=== PATIENT | female | born 1930 | race Caucasian/White ===

== ENCOUNTER 2016-06-25 21:58 | Inpatient (IN) ==
[2016-06-25] MEDS ORDERED: 0.9 % Sodium Chloride 1,000 ML IVC ONE (22:28)
[2016-06-25] MEDS ORDERED: *HR* Metoprolol 5 MG/5 ML VIAL IVP ONE (22:50)
[2016-06-25 23:05] LABS: Basophils % 0.1 %; Eosinophils # 0.3 K/mcL (0.0-0.6); Hematocrit 37.6 % (35.3-44.9); Hemoglobin 12.2 g/dL (11.5-15.4); Immature Granulocytes % 0.4 % (0-4); Lymphocytes # 3.1 K/mcL (0.6-4.6); Lymphocytes % 24.1 %; Mean Corpuscular HGB Conc 32.4 g/dL (31.6-35.5); Mean Corpuscular Hemoglobin 26.6 pg (28.0-33.3); Mean Corpuscular Volume 82.1 fL (83.0-100.0); Monocytes # 1.4 K/mcL (0.0-1.3); Monocytes % 11.1 %; Platelet Count 180 K/mcL (140-400); Red Blood Count 4.58 M/mcL (3.82-4.97); Segmented Neutrophils % 62.3 %
[2016-06-25 23:10] LABS: INR 3.8; Ionized Calcium 1.12 mmol/L (1.15-1.35); Prothrombin Time 42.8 Seconds (9.4-12.1)
[2016-06-26 00:18] LABS: Alanine Aminotransferase 34 Units/L (0-55); Alkaline Phosphatase 80 Units/L (38-126); Aspartate Amino Transferase 25 Units/L (5-34); BUN/Creatinine Ratio 42 (6-26); Blood Urea Nitrogen 33 mg/dL (7-20); Carbon Dioxide 24 mEq/L (19-29); Chloride 100 mEq/L (98-109); Glucose 216 mg/dL (70-99); Magnesium 2.1 mg/dL (1.6-2.6); Osmolality,Calculated 292 (280-300); Potassium 4.6 mEq/L (3.5-4.5); Sodium 134 mEq/L (136-145); eGFR For African Americans > 60 (> 60); eGFR For Non-African Americans > 60 (> 60)
--- NOTE | 2016-06-26 00:31 | Emergency Department Note ---
Disposition Clinical Impression: Atrial fibrillation with RVR, Weakness Disposition: Admitted As Inpatient Referrals: NO,PCP [Non-Partnered Physician] - Forms: ED Satisfaction Letter Arrhythmia/Palpitations HPI - General Chief Complaint: ED Weakness Stated Complaint: weakness, fall Time Seen by Provider: 06/25/16 22:04 Source: EMS Limitations: no limitations Nursing Notes Reviewed: Yes Vital Signs Reviewed: Yes - History of Present Illness HPI Narrative: Is a 85-year-old female states the last 2-3 days she has had increasing tachycardia palpitations. She had one episode of fall she also complained of a mild nonproductive cough. She did have one episode of diarrhea also today. She denies any chest pain and states she was recently discharged from [facility] for the same issue Pt Subjective Complaint: rapid heart beat, palpitations Duration: constant Severity: moderate, similar to previous episodes Context: occurred during rest Arrhythmia History: atrial fibrillation Associated symptoms: Denies: chest pain, syncope, nausea, vomiting, anxiety, diaphoresis Treatments prior to arrival: beta-kenia - Related Data Allergies Allergy/AdvReac Type Severity Reaction Status Date / Time aspirin Allergy See Verified 06/25/16 23:00 Comments Penicillins Allergy See Verified 06/25/16 23:00 Comments ivp dye Allergy See Uncoded 06/25/16 23:00 Comments All systems ED: reviewed and negative except as stated. Constitutional: Denies: fever, chills, weakness Respiratory: Reports: cough Past Medical History - Past Medical History Source: patient, old records reviewed, nursing notes reviewed Medical history: Reports: atrial fibrillation - Social History Smoking Status: Never smoker Smokeless Tobacco Status: No Alcohol use: Reports: none Drug use: Reports: none Physical Exam - General Limitations: no limitations General appearance: alert, in no apparent distress - Head Head exam: atraumatic, normocephalic, normal inspection - Eye Eye exam: Present: normal appearance, PERRL, EOMI - Expanded Eye Exam Pupils: Left: reactive - ENT ENT exam: normal exam, normal oropharynx, mucous membranes moist - Expanded ENT Exam External ear exam: Present: normal external inspection Mouth exam: Present: normal external inspection Teeth exam: Present: normal inspection Throat exam: Present: normal inspection - Neck Neck exam: Present: normal inspection, full ROM, trachea midline - Chest Chest inspection: Present: normal inspection, symmetric chest wall rise - Respiratory Respiratory exam: Present: normal lung sounds bilaterally - Cardiovascular Cardiovascular exam: Present: tachycardia - Abdominal Exam Abdominal exam: Present: soft, Non-Tender. Absent: tenderness, distention, guarding, rebound, rigidity - Extremities Exam Extremities exam: Present: normal inspection, full ROM. Absent: tenderness, pedal edema - Expanded Upper Extremity Exam Shoulder exam: Present: normal inspection, full ROM Arm exam: Present: normal inspection, full ROM Elbow exam: Present: normal inspection, full ROM Forearm/Wrist exam: Present: normal inspection, full ROM Hand exam: Present: normal inspection, full ROM Vascular exam: Normal: capillary refill, radial pulse - Expanded Lower Extremity Exam Hip/Pelvis exam: Present: normal inspection, full ROM Upper leg exam: Present: normal inspection, full ROM Knee exam: Present: normal inspection, full ROM Lower leg exam: Present: normal inspection, full ROM Ankle exam: Present: normal inspection, full ROM Foot/toe exam: Present: normal inspection, full ROM Neurovascular/Tendon exam: Absent: motor deficit, sensory deficit, tendon deficit - Back Exam Back exam: Present: normal inspection, full ROM. Absent: tenderness - Neurological Exam Neurological exam: Present: alert, oriented X3 - Expanded Neurological Exam Patient oriented to: Present: person, place, time Coma Scale Eye Opening: Spontaneous Coma Scale Motor Response: Obeys Commands Coma Scale Verbal Response: Oriented Coma Scale Total: 15 - Psychiatric Psychiatric exam: Present: normal affect, normal mood - Skin Skin exam: Present: warm, dry, intact, normal color Course Vital Signs Temperature 97.4 F L 06/25/16 22:01 Pulse Rate 144 06/25/16 22:01 Respiratory Rate 18 06/25/16 22:01 Blood Pressure 93/75 06/25/16 22:01 O2 Sat by Pulse Oximetry 97 06/25/16 22:01 Temperature 97.4 F L 06/25/16 22:01 Pulse Rate 137 06/26/16 00:16 Respiratory Rate 18 06/26/16 00:16 Blood Pressure 101/84 06/26/16 00:16 O2 Sat by Pulse Oximetry 98 06/26/16 00:16 Oxygen Delivery Oxygen Delivery Room Air Arrhythmia/Palpitations - Differential Diagnosis Differential Diagnosis: Likely: palpitations, sinus tachycardia, artial arrhythmia, ventricular premature beats, supraventricular tachycardia, metabolic /electrolyte disturbance, undetermined arrhythmia - Medical Records Medical records reviewed: Yes I reviewed the patient's medical records. - Lab Data Lab results reviewed: Yes I reviewed the patient's lab results. Result diagrams: 06/25/16 22:57 06/25/16 22:57 Lab Results 06/25/16 06/25/16 06/25/16 Range/Units 22:57 22:57 22:57 WBC 12.8 H (4.3-11.1) K/mcL RBC 4.58 (3.82-4.97) M/mcL Hgb 12.2 (11.5-15.4) g/dL Hct 37.6 (35.3-44.9) % MCV 82.1 L (83.0-100.0) fL MCH 26.6 L (28.0-33.3) pg MCHC 32.4 (31.6-35.5) g/dL RDW 19.0 H (11.5-14.5) % Plt Count 180 (140-400) K/mcL MPV 9.0 L (9.4-12.4) fL Immature Gran % 0.4 (0-4) % Seg Neutrophils % 62.3 % Lymphocytes % 24.1 % Monocytes % 11.1 % Eosinophils % 2.0 % Basophils % 0.1 % Neutrophils # 8.0 (1.6-8.9) K/mcL Lymphocytes # 3.1 (0.6-4.6) K/mcL Monocytes # 1.4 H (0.0-1.3) K/mcL Eosinophils # 0.3 (0.0-0.6) K/mcL Basophils # 0.0 (0.0-0.2) K/mcL PT 42.8 H (9.4-12.1) Seconds INR 3.8 Sodium 134 L (136-145) mEq/L Potassium 4.6 H (3.5-4.5) mEq/L Chloride 100 (98-109) mEq/L Carbon Dioxide 24 (19-29) mEq/L BUN 33 H (7-20) mg/dL Creatinine 0.79 (0.57-1.11) mg/dL Est GFR ( Amer) > 60 (> 60) Est GFR (Non-Af Amer) > 60 (> 60) BUN/Creatinine Ratio 42 H (6-26) Glucose 216 H (70-99) mg/dL Calculated Osmolality 292 (280-300) Calcium 9.0 (8.6-10.8) mg/dL Ionized Calcium 1.12 L (1.15-1.35) mmol/L Magnesium 2.1 (1.6-2.6) mg/dL Total Bilirubin 1.0 (0.2-1.2) mg/dL AST 25 (5-34) Units/L ALT 34 (0-55) Units/L Alkaline Phosphatase 80 (38-126) Units/L Troponin I (0-0.03) ng/mL Serum Total Protein 6.0 (6.0-8.3) g/dL Albumin 3.0 L (3.5-5.0) g/dL Globulin 3.0 (2.4-3.5) g/dL Albumin/Globulin Ratio 1.0 L (1.1-2.2) 06/25/16 Range/Units 22:57 WBC (4.3-11.1) K/mcL RBC (3.82-4.97) M/mcL Hgb (11.5-15.4) g/dL Hct (35.3-44.9) % MCV (83.0-100.0) fL MCH (28.0-33.3) pg MCHC (31.6-35.5) g/dL RDW (11.5-14.5) % Plt Count (140-400) K/mcL MPV (9.4-12.4) fL Immature Gran % (0-4) % Seg Neutrophils % % Lymphocytes % % Monocytes % % Eosinophils % % Basophils % % Neutrophils # (1.6-8.9) K/mcL Lymphocytes # (0.6-4.6) K/mcL Monocytes # (0.0-1.3) K/mcL Eosinophils # (0.0-0.6) K/mcL Basophils # (0.0-0.2) K/mcL PT (9.4-12.1) Seconds INR Sodium (136-145) mEq/L Potassium (3.5-4.5) mEq/L Chloride (98-109) mEq/L Carbon Dioxide (19-29) mEq/L BUN (7-20) mg/dL Creatinine (0.57-1.11) mg/dL Est GFR ( Amer) (> 60) Est GFR (Non-Af Amer) (> 60) BUN/Creatinine Ratio (6-26) Glucose (70-99) mg/dL Calculated Osmolality (280-300) Calcium (8.6-10.8) mg/dL Ionized Calcium (1.15-1.35) mmol/L Magnesium (1.6-2.6) mg/dL Total Bilirubin (0.2-1.2) mg/dL AST (5-34) Units/L ALT (0-55) Units/L Alkaline Phosphatase (38-126) Units/L Troponin I 0.02 (0-0.03) ng/mL Serum Total Protein (6.0-8.3) g/dL Albumin (3.5-5.0) g/dL Globulin (2.4-3.5) g/dL Albumin/Globulin Ratio (1.1-2.2) - Radiology Data Radiology results reviewed: Yes I reviewed the patient's radiology results. - EKG Data EKG attestation: Yes I reviewed and interpreted this EKG. Rate: tachycardia (140) Rhythm: A.Fib Lucinda/QRS: normal Interpretation: nonspecific ST-T wave changes Critical Care Time Critical Care Time: Yes Total Critical Care Time: 40 Attestation: Critical care performed: Time is exclusive of separately billable procedures. Time includes: direct patient care, patient reassessment, coordination of patient care, interpretation of data (laboratory data, radiology data, and respiratory data), review of patient's medical records, medical consultation and documentation of patient care. Procedures included in critical care time: Procedures excluded from critical care time:
[2016-06-26] MEDS ORDERED: Pantoprazole 40 MG VIAL IVP STA (01:08)
[2016-06-26] MEDS ORDERED: *HR* Morphine 2 MG/ML SYRINGE IVP PRN (01:08)
[2016-06-26] MEDS ORDERED: *HR* Enoxaparin 80 MG/0.8 ML SYRINGE SQ STA (01:08)
[2016-06-26] MEDS ORDERED: Naloxone 0.4 MG/ML INJ IVP PRN (01:08)
[2016-06-26] MEDS ORDERED: Ondansetron 4 MG/2 ML VIAL IVP PRN (01:08)
[2016-06-26] MEDS ORDERED: *HR* OxyCODONE Immed Rel 5 MG TABLET PO PRN (01:08)
[2016-06-26] MEDS ORDERED: Acetaminophen 325 MG TABLET PO PRN (01:08)
[2016-06-26] MEDS ORDERED: Nitroglycerin 0.4 MG TAB.SUBL SL PRN (01:44)
[2016-06-26] MEDS ORDERED: Calcium Gluconate 1,000 MG in D5% in Water 100 ML IVPB ONE (01:47)
--- NOTE | 2016-06-26 01:55 | Internal Med History&Physical ---
Date of Encounter: 06/26/16 Time of Encounter: 01:00 Assessment and Plan (1) Generalized weakness Status: Acute . (2) Multiple falls Status: Chronic . (3) Postural dizziness with presyncope Status: Acute . (4) Paroxysmal a-fib Status: Chronic . (5) SIRS (systemic inflammatory response syndrome) Status: Acute . (6) Hypothyroidism Status: Chronic . Qualifiers: Hypothyroidism type: acquired Qualified Code(s): E03.9 - Hypothyroidism, unspecified (7) CAD (coronary artery disease), [place] coronary artery Status: Chronic . Qualifiers: [place] vs. transplanted heart: [place] heart Associated angina: without angina Qualified Code(s): I25.10 - Atherosclerotic heart disease of [place] coronary artery without angina pectoris (8) Type 2 diabetes mellitus Status: Chronic . Qualifiers: Diabetes mellitus complication status: with unspecified complications Diabetes mellitus retirement insulin use: unspecified retirement insulin use status Qualified Code(s): E11.8 - Type 2 diabetes mellitus with unspecified complications (9) HTN (hypertension) Status: Chronic . Qualifiers: Hypertension type: essential hypertension Qualified Code(s): I10 - Essential (primary) hypertension (10) HLD (hyperlipidemia) Status: Chronic . Qualifiers: Hyperlipidemia type: mixed hyperlipidemia Qualified Code(s): E78.2 - Mixed hyperlipidemia (11) Seizure disorder Status: Deleted . (12) RAD (reactive airway disease) Status: Chronic . Qualifiers: Asthma severity: unspecified severity Asthma complication type: uncomplicated Qualified Code(s): J45.909 - Unspecified asthma, uncomplicated (13) Atrial fibrillation with RVR Status: Acute . (14) Cough Status: Acute . (15) Cough due to angiotensin-converting enzyme inhibitor Status: Chronic . (16) RAD (reactive airway disease) with wheezing Status: Acute . Qualifiers: Asthma severity: mild intermittent Asthma complication type: with acute exacerbation Qualified Code(s): J45.21 - Mild intermittent asthma with (acute ) exacerbation Internal Medicine - H&P: HPI Chief complaint: Generalized weakness. Mechanical fall. Admitted From: Emergency Dept Plans for Post Hospital Care: Home History of present illness: Ms. Aleman is a 85 year old female with history significant for chronic paroxysmal atrial fibrillation, H/O tachybradycardia arrhythmias, diastolic CHF , RAD/asthma, CAD/PTCAstents, type II DM, hypertension, dyslipidemia, H/O PMR, osteoarthritis, osteoporosis, ?seizure disorder, BPPvertigo, hypothyroidism, valvular heart disease, chronic anticoagulation(Warfarin), obesity, nonsmoker. The patient was visited and interviewed and examined. The patient was admitted to [facility] via the emergency department when she presented by EMS with reports of severe generalized weakness and mechanical fall. Patient reported that for the 2-3 days prior to presentation she had increasing feelings of palpitations with rapid heart rates. She had one episode of a mechanical fall without any discrete injury. She denies any acute loss of consciousness. She simply felt lightheaded/dizzy, lost her footing and fell. Sleep of this to be benign postural vertigo acting up but was unresponsive to her usual meclizine therapy. She acknowledges a 3 week history of intermittent nonproductive cough as well as 1 episode of diarrheal stools during the morning of presentation to ED. She denied any overt chest pain syncope orthopnea paroxysmal nocturnal dyspnea peripheral edema. She denied abdominal pain and flank pain constipation nausea or vomiting dysuria hematuria. She denied fevers chills sweats. She denied headache slurring of speech unilateral weakness altered mental status/attention deficit. Although intermittent severity she reports that symptoms seemed constant over this period of time. Moderate to severe and occurring primarily at rest and aggravated with minimal activity. Denies any dietary medication or recreational indiscretions. She took her scheduled doses of Sotalol, Lopressor and Diltiazem CD day of presentation. Patient reportedly has been in atrial fibrillation the last 4 months in spite of Sotalol therapy. History is noteworthy for chronic paroxysmal atrial fibrillation with history of tachybradycardia arrhythmias. She does receive chronic anticoagulation with warfarin. ([id number] score~4). Denied any obvious or overt bleeding episodes. SHe is a nonsmoker. Findings in the ED: Temperature 97.4 pulse 137-144 respiration 18 BP 93-101/75- 84 O2 saturation 98% room air. WBC 12.8 hemoglobin 12.2 platelets 180,000. MCV 82.1 MCH 26.3. RDW 19. MPV 9. Differential shows an increase in monocytes. PT 42.8 INR 3.8. Metabolic panel sodium 134 potassium 4.6. BUN 33 creatinine 0.79. Glucose 216 osmolality 292. Ionized calcium 1.12. Magnesium 2.1. Albumin 3 total protein 6. Troponin 0.02. EKG demonstrates atrial fibrillation. Tachycardic rate 140. Nonspecific ST-T wave changes. Portable chest x-ray demonstrates no acute or active cardiopulmonary process. Heart size upper limits of normal. No airspace opacity pleural effusion or pneumothorax. Preliminary impression suggests acute on chronic paroxysmal atrial fibrillation with RVR. Presentation associated with the mild pulmonary vascular congestion with cough secondary to decompensation of chronic diastolic CHF and cardiac asthma. Screening studies find her chronic inflammatory response syndrome criteria present at the time of admission. Presence of concomitant infection and she had to be fully ruled out. In spite of tachyarrhythmias patient does not present with evidence of ACS/UA/demand ischemia with troponin elevation. She remains however at increased risk of this eventuality. Given presenting chief complaints, findings, advanced age and comorbidities the patient is at risk for further acute clinical decline and morbidity. Workup and treatment will proceed comprehensively. Cumulative laboratory and radiographic data base was reviewed,considered and discussed. Pertinent ancillary medical records including ECW and PCI documentation was reviewed and considered. Given the patient's presenting concerns, past medical history, clinical findings and symptoms, she is admitted at this time will undergo further evaluation and disposition. Orders were written as per the computerized physician mail order sorter system.......................................................................... .................... Consultative opinions will be sought as clinical circumstances justify. Initial consultative opinion has been requested of cardiology. Pain management needs will be addressed. Laboratory and radiographic data base will be updated as appropriate. Studies include: Cultures blood urine and sputum, PT/INR, APTT, Ddimer, cardiac injury panel, BNP, metabolic and hematologic panel, magnesium, phosphorus, ionized calcium, thyroid panel, lipid profile, A1c, C-peptide, CRP, sed rate, respiratory infection profile, respiratory virus panel, blood gas, lactic acid, UA, serologies, etc. Precautions: Aspiration, fall, delirium protocol/surveillance initiated. Telemetry with continuous hemodynamic monitoring and pulse oximetry initiated. Orthostatic vital signs. Empiric antibiotic coverage: pending diagnostics/culture data. Special studies: CT chest, chest x-ray, telemetry, EKG, echocardiogram, carotid US. Pulmonary toilet: Incentive spirometry, aerosol bronchodilator, mucolytic, antitussive, supplemental oxygen. Corticosteroid therapyPRN. CPAP/BiPAP supplemental oxygen deliveryPRN. Aerosol Mucomyst therapyPRN. Fluid and electrolyte repletion efforts will proceed. Careful attention to fluid balance and renal recovery will be emphasized. Avoidance of nephrotoxic exposure and adverse drug drug interaction in the setting of impaired renal function will be monitored closely. Acute coronary syndrome protocol/surveillance initiated. Acute atrial fibrillation RVR protocol/surveillance initiated. Including: Intravenous diltiazem drip to transition to oral diltiazem coverage pending stabilization/conversion of the RVR to CVR. Subcutaneous therapeutic Lovenox 1 pending confirmation of stable PT and INR measures on warfarin. Continuance of metoprolol therapy as heart rate and blood pressure permits. Sotalol therapy was held pending stabilization/conversion of the RVR to CVR and Cardiology consulting recommendations. DVT and PUD prophylaxis initiated: PPI therapy, intermittent pneumatic cuffs/ TEDs. Early ambulation will be encouraged. Continuance of chronic anticoagulation (Warfarin) dosed by pharmacy to maintain a stable INR of 2-3. Immunization updates recommended. Influenza and pneumococcal vaccinations as part of ongoing preventative healthcare recommendations strongly recommended. Smoking cessation counseling briefly addressed. Patient is a nonsmoker. Advanced care directive discussion briefly addressed. Patient does not declare any healthcare restrictions at this time. Cardiovascular risk appraisal and cardiovascular risk reduction efforts will be emphasized. Physical /occupational therapy may be considered to evaluate patient's functional capacity and progress mobility if her circumstances justify. Sliding scale insulin coverage, ADA dietary restraint and schedule an as-needed basis fingerstick glucose assessments were initiated. Nutrition/diabetes education counseling may be considered as circumstances justify. Outpatient medication schedules will be reviewed, confirmed and facilitated as appropriate. Reconciliation of home treatments including adjustments, substitutions and reintroduction into the treatment regimen will address necessary maintenance therapies for chronic pre-existing medical conditions. Plan of care has been reviewed and discussed in detail with the patient. Questions addressed. Hospital course dictated by clinical findings, treatment response and potential consultative interventions. Patient is at risk for further acute clinical decline and morbidity due to her advanced age, presenting chief complaints, findings and comorbid conditions. Condition is serious. Prognosis is guarded. CODE STATUS is reported as full. Past Med Surg Social Fam HX - Past Medical History Source: old records reviewed Medical history: arthritis, asthma, atrial fibrillation, cardiomyopathy ( June 2012 echocardiogram demonstrated normal left ventricular size and systolic function. Evidence of mild diastolic dysfunction of left ventricle with LVEF 55-60%. No evidence for left ventricular thrombus. Right ventricle normal size and function. Evidence of mild-moderate mitral regurgitation. Evidence of mild tricuspid regurgitation. RVSP 36 mmHg. Pharmacologic myocardial perfusion stress test negative for ischemia with EF 66%. 2 brief episodes of nonsustained V. tach. First stage of exercise. Holter monitor showed 3. Run nonsustained V. tach, 4 episodes of paroxysmal supraventricular tach with the longest being 3 beat run, rare PVCs and PACs.), CHF, COPD, coronary artery disease, diabetes, GERD, hyperlipidemia, hypertension, osteoporosis, RA (Polymyalgia rheumatica(PMR)), seizures, thyroid disease, syncope, venous stasis, valvular heart disease, other (positional vertigo.) Psychiatric history: other - Past Surgical History Surgical History: angioplasty/stent (Left heart catheterizations with multiple stent placements.), cholecystectomy, hysterectomy (Partial hysterectomy.), orthopedic, other (Back surgery.), other (Hemorrhoid surgery. Ear surgery.), vascular surgery (Varicose vein surgery.) - Social History Smoking Status: Never smoker Smokeless Tobacco Status: No Alcohol use: none Drug use: none Occupational status: retired Current living situation: With Family Activity Level: Mostly sedentary Recent Out of Country Travel Within the Last 8 Weeks: No Exposure or Possible Exposure to Illness During Travel: No - Family History Mother Brother Hx Family Cardiac Disorders: Yes Hx Family Respiratory Disorders: Yes Hx Family Endocrine Disorder: Yes Internal Medicine - H&P: Meds Albuterol Sulfate 2.5 mg IH TID 06/26/16 [History] Albuterol Sulfate [Proair Hfa] 2 puff IH Q4-6H PRN 06/26/16 [History] Budesonide/Formoterol 160/4.5 [Symbicort 160/4.5] 2 puff IH BIDR 06/26/16 [ History] Glimepiride [Amaryl] 2 mg PO DAILY 06/26/16 [History] Levothyroxine Sodium [Levoxyl] 75 mcg PO DAILY 06/26/16 [History] Lisinopril 2.5 mg PO DAILY 06/26/16 [History] Meclizine HCl [Verticalm] 25 mg PO BID 06/26/16 [History] Metoprolol [Lopressor] 25 mg PO BID 06/26/16 [History] Montelukast Sodium [Singulair] 10 mg PO DAILY 06/26/16 [History] Nitroglycerin [Nitrostat] 0.4 mg SL PRN PRN 06/26/16 [History] Torsemide [Demadex] 20 mg PO DAILY 06/26/16 [History] Warfarin [Coumadin] 2 mg PO DAILY 06/26/16 [History] Diltiazem CD (24hr) [Cardizem CD] 180 mg PO DAILY #30 cap.er.24h 06/28/16 [Rx] Docusate [Colace] 100 mg PO BID PRN #60 capsule 06/28/16 [Rx] Allergies aspirin Allergy (Unknown, Verified 06/26/16 17:25) See Comments UNSURE OF REACTION- LISTED ON PATIENT'S ECW LIST hydroxyzine [From Vistaril] Allergy (Unknown, Verified 06/26/16 17:25) See Comments UNSURE OF REACTION- LISTED ON PATIENT'S ECW LIST levofloxacin [From Levaquin] Allergy (Unknown, Verified 06/26/16 17:25) See Comments UNSURE OF REACTION- LISTED ON PATIENT'S ECW LIST Penicillins Allergy (Unknown, Verified 06/26/16 17:25) See Comments UNSURE OF REACTION- LISTED ON PATIENT'S ECW LIST ivp dye Allergy (Unknown, Uncoded 06/26/16 17:25) See Comments UNSURE OF REACTION- LISTED ON PATIENT'S ECW LIST All Systems PM: A 10-system review of systems was performed and is negative for pertinent findings except as documented above in the HPI. - Constitutional Constitutional: as per HPI, falls, malaise, no chills, no fever(s), no night sweats - EENT Eyes: as per HPI, no change in vision, no discharge, no pain, no photophobia Ears: as per HPI, no ear discharge, no ear pain, no tinnitus Nose, mouth and throat: as per HPI, no dysphagia, no nasal discharge, no neck pain, no sore throat - Cardiovascular Cardiovascular ROS IM: as per HPI, irregular heart rhythm, other, no chest pain , no diaphoresis, no dyspnea, no lightheadedness, no palpitations, no syncope - Respiratory Respiratory: as per HPI, cough, wheezing, other, no dyspnea, no excessive phlegm production - Gastrointestinal Gastrointestinal: as per HPI, no abdominal pain, no diarrhea, no hematemesis, no hematochezia, no melena, no nausea, no vomiting - Genitourinary Genitourinary: as per HPI, no change in urinary stream, no dysuria, no flank pain, no hematuria - Musculoskeletal Musculoskeletal ROS IM: as per HPI, no numbness, no tingling - Integumentary Integumentary IM: as per HPI, no rash, no unusual bruising - Neurological Neurological ROS: as per HPI, no confusion, no convulsions, no focal weakness, no numbness, no tingling, no tremor(s) - Psychiatric Psychiatric: as per HPI - Endocrine Endocrine IM: as per HPI - Hematologic/Lymphatic Hematologic/Lymphatic: as per HPI, no easy bruising - Allergic/Immunologic Allergic/Immunologic: as per HPI - Constitutional Vitals: Temp Pulse Resp BP Pulse Ox 97.4 F L 138 18 101/73 98 06/25/16 22:01 06/26/16 01:10 06/26/16 01:20 06/26/16 01:20 06/26/16 01:10 General appearance: Present: cooperative, mild distress, A&O X 3, pleasant, obese, answers questions appropriately - Head Head exam: Present: atraumatic, normocephalic - Eye Eye exam: Present: EOMI, PERRL, conjuntiva pink, sclera anicteric Pupils: Present: normal accommodation, PERRL - ENT ENT exam: Present: mucous membranes moist, normal external ear exam, normal oropharynx - Neck Neck exam general surgery: Present: full ROM, supple, trachea midline. Absent: lymphadenopathy - Respiratory Respiratory exam: Present: chest wall tenderness, decreased breath sounds, wheezes. Absent: accessory muscle use, rales, rhonchi - Cardiovascular Cardiovascular exam: Present: distant heart sounds, irregular rhythm, +S1, +S2, tachycardia. Absent: diastolic murmur, gallop, rubs, systolic murmur - GI/Abdominal GI/Abdominal exam: Present: normal bowel sounds, soft, no peritoneal signs. Absent: distended, tenderness - Extremities Exam Extremities exam: Present: full ROM, warm, radial pulses palpable and symetrical. Absent: calf tenderness, cyanotic, pedal edema - Neurological Exam Neurological exam: Present: alert, CN II-XII intact, oriented X3, no focal deficits. Absent: pronater drift, facial droop, speech deficit - Psychiatric Psychiatric exam: Present: normal affect, normal mood - Skin Skin exam: Present: dry, intact, warm. Absent: petechiae, rash, urticaria, vesicles Internal Med - H&P Results - Labs CBC & Chem 7: 06/28/16 05:50 06/28/16 05:50 - Impressions Vital Signs Temp Pulse Resp BP Pulse Ox 06/26/16 01:50 97.4 F L 101 18 102/72 96 06/26/16 01:20 18 101/73 06/26/16 01:10 138 18 101/87 98 06/26/16 00:48 128 18 105/78 98 06/26/16 00:16 137 18 101/84 98 06/25/16 23:32 132 18 101/86 97 06/25/16 23:00 149 18 111/96 96 06/25/16 22:01 97.4 F L 144 18 93/75 97 Intake and Output 06/25/16 06/25/16 06/26/16 15:59 23:59 07:59 Intake Total 5 / 5 Balance 5 / 5 Intake: IV Fluids 5 / 5 Cardizem 125 MG In 5 / 5 Dextrose 5% 100 ML @ 5 MG /HR 5 mls/hr IVC .Q24H [facility] Rx#:[id number] Other: Weight 77.111 kg 80.2 kg Patient Weight 06/26/16 23:59 Weight 80.2 kg Short CBC 06/25/16 Range/Units 22:57 WBC 12.8 H (4.3-11.1) K/mcL Hgb 12.2 (11.5-15.4) g/dL Hct 37.6 (35.3-44.9) % Plt Count 180 (140-400) K/mcL Neutrophils # 8.0 (1.6-8.9) K/mcL BMP 06/25/16 Range/Units 22:57 Sodium 134 L (136-145) mEq/L Potassium 4.6 H (3.5-4.5) mEq/L Chloride 100 (98-109) mEq/L Carbon Dioxide 24 (19-29) mEq/L BUN 33 H (7-20) mg/dL Creatinine 0.79 (0.57-1.11) mg/dL Glucose 216 H (70-99) mg/dL Calcium 9.0 (8.6-10.8) mg/dL Cardiac Enzymes 06/25/16 Range/Units 22:57 Troponin I 0.02 (0-0.03) ng/mL Liver Function 06/25/16 Range/Units 22:57 Total Bilirubin 1.0 (0.2-1.2) mg/dL AST 25 (5-34) Units/L ALT 34 (0-55) Units/L Alkaline Phosphatase 80 (38-126) Units/L Albumin 3.0 L (3.5-5.0) g/dL Abnormal lab results WBC 12.8 K/mcL (4.3-11.1) H 06/25/16 22:57 MCV 82.1 fL (83.0-100.0) L 06/25/16 22:57 MCH 26.6 pg (28.0-33.3) L 06/25/16 22:57 RDW 19.0 % (11.5-14.5) H 06/25/16 22:57 MPV 9.0 fL (9.4-12.4) L 06/25/16 22:57 Monocytes # 1.4 K/mcL (0.0-1.3) H 06/25/16 22:57 PT 42.8 Seconds (9.4-12.1) H 06/25/16 22:57 Sodium 134 mEq/L (136-145) L 06/25/16 22:57 Potassium 4.6 mEq/L (3.5-4.5) H 06/25/16 22:57 BUN 33 mg/dL (7-20) H 06/25/16 22:57 BUN/Creatinine Ratio 42 (6-26) H 06/25/16 22:57 Glucose 216 mg/dL (70-99) H 06/25/16 22:57 Ionized Calcium 1.12 mmol/L (1.15-1.35) L 06/25/16 22:57 Albumin 3.0 g/dL (3.5-5.0) L 06/25/16 22:57 Albumin/Globulin Ratio 1.0 (1.1-2.2) L 06/25/16 22:57 Allergies Allergy/AdvReac Type Severity Reaction Status Date / Time aspirin Allergy See Verified 06/25/16 23:00 Comments hydroxyzine [From Vistaril] Allergy See Verified 06/26/16 00:56 Comments levofloxacin [From Levaquin] Allergy See Verified 06/26/16 00:56 Comments Penicillins Allergy See Verified 06/25/16 23:00 Comments ivp dye Allergy See Uncoded 06/25/16 23:00 Comments Laboratory Results WBC 12.8 K/mcL (4.3-11.1) H 06/25/16 22:57 RBC 4.58 M/mcL (3.82-4.97) 06/25/16 22:57 Hgb 12.2 g/dL (11.5-15.4) 06/25/16 22:57 Hct 37.6 % (35.3-44.9) 06/25/16 22:57 MCV 82.1 fL (83.0-100.0) L 06/25/16 22:57 MCH 26.6 pg (28.0-33.3) L 06/25/16 22:57 MCHC 32.4 g/dL (31.6-35.5) 06/25/16 22:57 RDW 19.0 % (11.5-14.5) H 06/25/16 22:57 Plt Count 180 K/mcL (140-400) 06/25/16 22:57 MPV 9.0 fL (9.4-12.4) L 06/25/16 22:57 Immature Gran % 0.4 % (0-4) 06/25/16 22:57 Seg Neutrophils % 62.3 % 06/25/16 22:57 Lymphocytes % 24.1 % 06/25/16 22:57 Monocytes % 11.1 % 06/25/16 22:57 Eosinophils % 2.0 % 06/25/16 22:57 Basophils % 0.1 % 06/25/16 22:57 Neutrophils # 8.0 K/mcL (1.6-8.9) 06/25/16 22:57 Lymphocytes # 3.1 K/mcL (0.6-4.6) 06/25/16 22:57 Monocytes # 1.4 K/mcL (0.0-1.3) H 06/25/16 22:57 Eosinophils # 0.3 K/mcL (0.0-0.6) 06/25/16 22:57 Basophils # 0.0 K/mcL (0.0-0.2) 06/25/16 22:57 PT 42.8 Seconds (9.4-12.1) H 06/25/16 22:57 INR 3.8 06/25/16 22:57 Sodium 134 mEq/L (136-145) L 06/25/16 22:57 Potassium 4.6 mEq/L (3.5-4.5) H 06/25/16 22:57 Chloride 100 mEq/L (98-109) 06/25/16 22:57 Carbon Dioxide 24 mEq/L (19-29) 06/25/16 22:57 BUN 33 mg/dL (7-20) H 06/25/16 22:57 Creatinine 0.79 mg/dL (0.57-1.11) 06/25/16 22:57 Est GFR ( Amer) > 60 (> 60) 06/25/16 22:57 Est GFR (Non-Af Amer) > 60 (> 60) 06/25/16 22:57 BUN/Creatinine Ratio 42 (6-26) H 06/25/16 22:57 Glucose 216 mg/dL (70-99) H 06/25/16 22:57 Calculated Osmolality 292 (280-300) 06/25/16 22:57 Calcium 9.0 mg/dL (8.6-10.8) 06/25/16 22:57 Ionized Calcium 1.12 mmol/L (1.15-1.35) L 06/25/16 22:57 Magnesium 2.1 mg/dL (1.6-2.6) 06/25/16 22:57 Total Bilirubin 1.0 mg/dL (0.2-1.2) 06/25/16 22:57 AST 25 Units/L (5-34) 06/25/16 22:57 ALT 34 Units/L (0-55) 06/25/16 22:57 Alkaline Phosphatase 80 Units/L (38-126) 06/25/16 22:57 Troponin I 0.02 ng/mL (0-0.03) 06/25/16 22:57 Serum Total Protein 6.0 g/dL (6.0-8.3) 06/25/16 22:57 Albumin 3.0 g/dL (3.5-5.0) L 06/25/16 22:57 Globulin 3.0 g/dL (2.4-3.5) 06/25/16 22:57 Albumin/Globulin Ratio 1.0 (1.1-2.2) L 06/25/16 22:57 Impressions Chest X-Ray 06/25/16 22:12 IMPRESSION: No acute abnormality. D/ / Ministerio Bates MD / Ministerio Bates MD Interpreting Provider: Ministerio Bates MD
[2016-06-26 02:07] LABS: Thyroid Stimulating Hormone 1.576 mcIU/mL (0.350-4.840)
[2016-06-26] MEDS: 0.9 % Sodium Chloride 1,000 ML IVC SCH ×2 (02:25→23:46)
[2016-06-26] MEDS: Aspirin Enteric Coated 325 MG Tablet PO STA ×2 (02:25→03:10)
[2016-06-26 04:54] LABS: Bilirubin,Urine Negative (Negative); Blood,Urine Negative (Negative); Clarity,Urine Cloudy (Clear); Color,Urine Yellow (Yellow); Glucose,Urine (UA) 500 mg/dL (Normal); Ketones,Urine Negative (Negative); Leukocyte Esterase,Urine Small (Negative); Nitrite,Urine Negative (Negative); Protein,Urine Negative (Neg-Trace); Specific Gravity,Urine 1.024 (1.010-1.025); Urobilinogen,Urine Normal (Normal)
[2016-06-26 04:57] LABS: Bacteria,Urine Few per hpf (None-Few); Hyaline Casts,Urine None Seen per lpf (None-Few); RBC,Urine 0-3 per hpf (0-3); Squamous Epithelial Cell,Urine Many per lpf (None-Few)
[2016-06-26 05:05] LABS: Hematocrit 35.3 % (35.3-44.9); Mean Corpuscular HGB Conc 31.2 g/dL (31.6-35.5); Mean Corpuscular Hemoglobin 26.6 pg (28.0-33.3); Mean Corpuscular Volume 85.3 fL (83.0-100.0); Mean Platelet Volume 8.9 fL (9.4-12.4); Platelet Count 154 K/mcL (140-400); Red Blood Count 4.14 M/mcL (3.82-4.97); Red Cell Distribution Width 18.9 % (11.5-14.5)
[2016-06-26 05:07] LABS: Yeast,Urine Moderate per hpf (None Seen)
[2016-06-26 05:14] LABS: Activated Partial Thrombo Time 30.5 Seconds (26.0-36.0)
[2016-06-26 05:15] LABS: Prothrombin Time 45.4 Seconds (9.4-12.1)
[2016-06-26 05:22] LABS: BUN/Creatinine Ratio 40 (6-26); Blood Urea Nitrogen 33 mg/dL (7-20); Calcium 8.9 mg/dL (8.6-10.8); Carbon Dioxide 19 mEq/L (19-29); Chloride 102 mEq/L (98-109); Chol/HDL Ratio 3.5 (0-4.9); Cholesterol 133 mg/dL (< 200); Glucose 334 mg/dL (70-99); HDL Cholesterol 38 mg/dL (40-59); LDL Cholesterol,Calculated 67 mg/dL (0-99); Magnesium 1.8 mg/dL (1.6-2.6); Osmolality,Calculated 294 (280-300); Phosphorous 3.9 mg/dL (2.3-4.7); Potassium 4.3 mEq/L (3.5-4.5); Sodium 132 mEq/L (136-145); Triglycerides 138 mg/dL (< 150); eGFR For African Americans > 60 (> 60); eGFR For Non-African Americans > 60 (> 60)
[2016-06-26] MEDS: levETIRAcetam 250 MG TABLET PO SCH ×2 (08:20→20:40)
[2016-06-26] MEDS ORDERED: Aspirin 81 MG TAB.CHEW PO SCH (09:00)
[2016-06-26] MEDS: Budesonide/Formoterol 160/4.5 MDI IH SCH ×2 (10:47→22:18)
--- NOTE | 2016-06-26 13:47 | Cardiology Consult Note ---
<Catie Membreno - Last Filed: 06/26/16 14:25> Date of Encounter: 06/26/16 Time of Encounter: 13:30 Assessment and Plan (1) Atrial fibrillation with RVR Current Visit: Yes Status: Acute Presented with Atrial fibrillation with RVR--reports long standing hx, on Coumadin for AC. Follows with Dr. Florez at [facility]. She reports has been in atrial fibrillation for the past 4 months despite sotalol. Recommend stopping sotalol, and start rate control strategy. 12 hour tele: avg HR=89, HR 70's upon exam, will start short-acting cardizem and wean off gtt to keep HR less than 100. Due to worsening dizziness, likely from chronic vertigo, will stop ARB and monitor BP close as has been hypotensive. Echocardiogram pending. INR supratherapeutic 4.0; recommend resuming coumadin when less than 3.0. If she continues to have multiple falls, recommend re-evaluation safety of long- term anticoagulation. Can be discussed with primary advertising manager at f/u. Discussion w patient/family: The assessment and plan as outlined above was discussed with the patient and/or family members who expressed understanding and agreement. All questions were answered. Thank you for involving us in the care of your patient. Please call with any questions. History of Present Illness Consult date: 06/26/15 Requesting physician: Clyde Courtney Consult reason: Afib Chief complaint: Dizziness History of present illness: Ms. Aleman is a 85 year old female with PMH significant for AF, vertigo, and HTN who presents to the ED with 1-2 history of palpitations, weakness, and dizziness. She reports she was having a "vertigo attack." Upon arrival to the ED she was found to be in atrial fibrillation with RVR and was started on cardizem gtt. Past Med Surg Social Fam HX - Past Medical History Attestation: Yes The following information was validated with the patient. Medical history: arthritis, asthma, atrial fibrillation, COPD, coronary artery disease, diabetes, GERD, hyperlipidemia, hypertension, osteoporosis, RA ( Polymyalgia rheumatica(PMR)), seizures, thyroid disease, syncope, venous stasis - Past Surgical History Surgical History: angioplasty/stent (Left heart catheterizations with multiple stent placements.), cholecystectomy, hysterectomy (Partial hysterectomy.), orthopedic, other (Back surgery.), other (Hemorrhoid surgery. Ear surgery.), vascular surgery (Varicose vein surgery.) - Social History Smoking Status: Never smoker Smokeless Tobacco Status: No Alcohol use: none Drug use: none - Family History Mother Brother Hx Family Cardiac Disorders: Yes Hx Family Respiratory Disorders: Yes Hx Family Endocrine Disorder: Yes Medications and Allergies Albuterol Sulfate 2.5 mg IH TID 06/26/16 [History] Albuterol Sulfate [Proair Hfa] 2 puff IH Q4-6H PRN 06/26/16 [History] Budesonide/Formoterol 160/4.5 [Symbicort 160/4.5] 2 puff IH BIDR 06/26/16 [ History] LevETIRAcetam [Keppra] 250 mg PO BID 06/26/16 [History] Levothyroxine Sodium [Levoxyl] 75 mcg PO 0600 06/26/16 [History] Lisinopril 2.5 mg PO DAILY 06/26/16 [History] Losartan Potassium [Cozaar] 25 mg PO DAILY 06/26/16 [History] Meclizine HCl [Verticalm] 25 mg PO BID 06/26/16 [History] Metformin [Glucophage] 500 mg PO BIDWM 06/26/16 [History] Metoprolol [Lopressor] 25 mg PO BID 06/26/16 [History] Montelukast Sodium [Singulair] 10 mg PO DAILY 06/26/16 [History] Nitroglycerin [Nitrostat] 0.4 mg SL PRN PRN 06/26/16 [History] Sotalol [Betapace] 80 mg PO Q12HR 06/26/16 [History] Torsemide [Demadex] 20 mg PO DAILY 06/26/16 [History] Vitamin E Acetate [Vitamin E] 600 unit PO DAILY 06/26/16 [History] Warfarin 06/26/16 [History] Allergies aspirin Allergy (Verified 06/25/16 23:00) See Comments hydroxyzine [From Vistaril] Allergy (Verified 06/26/16 00:56) See Comments levofloxacin [From Levaquin] Allergy (Verified 06/26/16 00:56) See Comments Penicillins Allergy (Verified 06/25/16 23:00) See Comments ivp dye Allergy (Uncoded 06/25/16 23:00) See Comments All Systems Review: A 10-system review of systems was performed and is negative for pertinent findings except as documented above in the HPI. - Cardiovascular Cardiovascular: as per HPI Physical Examination Vital Signs, Last 4 Hours Temp Pulse Resp BP Pulse Ox 06/26/16 10:49 96.6 F L 76 15 92/50 96 General: Conversant, No Apparent Distress HEENT: Atraumatic, Normocephaly Cardiac: Other (irregularly irregular) Lungs: Normal Breath Sounds Neuro: Alert and responsive Abdomen: Soft Skin: No rashes noted on visualized skin Musculoskeletal: No Chest Wall Tenderness Extremities: No Edema, Normal Pulses Results 06/26/16 04:48 06/26/16 04:48 Lab Results 06/26/16 06/26/16 06/26/16 04:48 04:48 04:48 WBC 11.7 H Hgb 11.0 L Hct 35.3 Plt Count 154 INR 4.0 APTT 30.5 Sodium Potassium Chloride Carbon Dioxide BUN Creatinine Glucose Calcium Magnesium Troponin I 0.01 B-Natriuretic Peptide 06/26/16 06/26/16 06/26/16 04:48 04:48 10:57 WBC Hgb Hct Plt Count INR APTT Sodium 132 L Potassium 4.3 Chloride 102 Carbon Dioxide 19 BUN 33 H Creatinine 0.82 Glucose 334 H Calcium 8.9 Magnesium 1.8 Troponin I 0.01 B-Natriuretic Peptide 798 H Active Medications Acetaminophen (Tylenol) 650 mg PO Q6HR PRN PRN Reason: Mild Pain (1-3) Stop: 12/26/16 01:09 Budesonide/Formoterol Fumarate (Symbicort) 2 puff IH BIDRESP SHAHANA PRN Reason: Protocol Stop: 12/26/16 10:01 Last Admin: 06/26/16 10:47 Dose: 2 puff Diltiazem HCl (Cardizem) 30 mg PO Q6HR SHAHANA Stop: 12/26/16 14:01 Docusate Sodium (Colace) 100 mg PO BID PRN PRN Reason: Constipation Stop: 12/26/16 01:09 Sodium Chloride (0.9 % Sodium Chloride) 1,000 mls @ 50 mls/hr IVC .Q20H SHAHANA Stop: 12/26/16 01:16 Last Admin: 06/26/16 02:25 Dose: 50 mls/hr Diltiazem HCl 125 mg/ Dextrose 125 mls @ 5 mls/hr IVC .Q24H SHAHANA; 5 MG/HR PRN Reason: Protocol Stop: 12/25/16 23:46 Last Titration: 06/26/16 13:57 Dose: 7.5 mg/hr, 7.5 mls/hr Levetiracetam (Keppra) 250 mg PO BID [facility] Stop: 12/26/16 09:01 Last Admin: 06/26/16 08:20 Dose: 250 mg Levothyroxine Sodium (Synthroid) 75 mcg PO 0600 [facility] Stop: 12/26/16 06:01 Last Admin: 06/26/16 06:45 Dose: 75 mcg Meclizine HCl (Antivert) 25 mg PO BID [facility] Stop: 12/26/16 09:01 Last Admin: 06/26/16 08:20 Dose: 25 mg Metoprolol Tartrate (Lopressor) 5 mg IVP Q6HR PRN PRN Reason: SEE COMMENTS Stop: 12/26/16 01:09 Metoprolol Tartrate (Lopressor) 25 mg PO BID [facility] Stop: 12/26/16 09:01 Last Admin: 06/26/16 08:20 Dose: 25 mg Montelukast Sodium (Singulair) 10 mg PO DAILY [facility] Stop: 12/26/16 09:01 Last Admin: 06/26/16 08:20 Dose: 10 mg Morphine Sulfate (Morphine Sulfate) 2 mg IVP Q4HR PRN PRN Reason: Severe Pain (7-10) Stop: 12/26/16 01:09 Naloxone HCl (Narcan) 0.4 mg IVP Q2MIN PRN PRN Reason: Opioid Reversal Stop: 12/26/16 01:09 Nitroglycerin (Nitroglycerin) 0.4 mg SL Q5M PRN PRN Reason: Chest Pain Stop: 12/26/16 01:45 Omeprazole (Prilosec) 20 mg PO DAILY@0630 [facility] PRN Reason: Protocol Stop: 12/26/16 06:31 Last Admin: 06/26/16 06:45 Dose: 20 mg Ondansetron HCl (Zofran) 4 mg IVP Q8HR PRN PRN Reason: Nausea And Vomiting Stop: 12/26/16 01:09 Oxycodone HCl (Roxicodone) 5 mg PO Q6HR PRN PRN Reason: Moderate Pain (4-6) Stop: 12/26/16 01:09 - Imaging and Cardiology Stress Test: report reviewed Echo: report reviewed Other Results: Telemetry reviewed. - EKG Interpretation EKG results cardiology: personally reviewed Consult Discharge Plan - Plan Referrals: Alonzo Cano, DO [Primary Care Provider] - <[email or web address] - Last Filed: 06/26/16 14:50> Date of Encounter: 06/26/16 Assessment and Plan Discussion w patient/family: The assessment and plan as outlined above was discussed with the patient and/or family members who expressed understanding and agreement. All questions were answered. Thank you for involving us in the care of your patient. Please call with any questions. History of Present Illness History of present illness: Ms. Aleman is a 85 year old female All Systems Review: A 10-system review of systems was performed and is negative for pertinent findings except as documented above in the HPI. Physical Examination Vital Signs, Last 4 Hours Temp Pulse Resp BP Pulse Ox 06/26/16 14:15 97.6 F 74 14 108/72 96 06/26/16 10:49 96.6 F L 76 15 92/50 96 Results 06/26/16 04:48 06/26/16 04:48 Lab Results 06/26/16 06/26/16 06/26/16 04:48 04:48 04:48 WBC 11.7 H Hgb 11.0 L Hct 35.3 Plt Count 154 INR 4.0 APTT 30.5 Sodium Potassium Chloride Carbon Dioxide BUN Creatinine Glucose Calcium Magnesium Troponin I 0.01 B-Natriuretic Peptide 06/26/16 06/26/16 06/26/16 04:48 04:48 10:57 WBC Hgb Hct Plt Count INR APTT Sodium 132 L Potassium 4.3 Chloride 102 Carbon Dioxide 19 BUN 33 H Creatinine 0.82 Glucose 334 H Calcium 8.9 Magnesium 1.8 Troponin I 0.01 B-Natriuretic Peptide 798 H - Attending Attestation I examined this patient and my medical decision-making was reviewed with the NURSING HOME ASSISTANT ADMINISTRATOR/PA/Advanced Practice Nurse/Resident Physician. I agree with the documented findings, disposition and treatment plan. Ms. Aleman presents with complaints of vertigo. She apparently was recently at [facility] for similar complaints. She has known AF and is on sotalol but per patient she has been in AF for 4 months. It does not appear sotalol is effective. We recommend stopping sotalol and rate controlling her with cardizem. Prior echo demonstrated normal LVEF. She is anticoagulated with coumadin.
--- NOTE | 2016-06-26 16:23 | Internal Med Progress Note ---
Date of Encounter: 06/26/16 Time of Encounter: 10:00 - Assessment and plan (1) Atrial fibrillation with RVR Current Visit: Yes Status: Acute Assessment and plan: Dorothy is a controlled with Cardizem drip. Cardiology consult appreciated. Recommendation will be followed. Patient was on Coumadin, which is on hold now because of INR is 4. Patient is at high risk because she is on Cardizem drip, need close monitoring (2) DVT prophylaxis Current Visit: Yes Status: Acute Assessment and plan: Patient is on Coumadin and has a supratherapeutic INR now. (3) CAD (coronary artery disease), [place] coronary artery Current Visit: Yes Status: Chronic Qualifiers: [place] vs. transplanted heart: [place] heart Associated angina: without angina Qualified Code(s): I25.10 - Atherosclerotic heart disease of [place] coronary artery without angina pectoris (4) HTN (hypertension) Current Visit: Yes Status: Chronic Assessment and plan: Continue home medication. Hold Losartan because BP is not high Qualifiers: Hypertension type: essential hypertension Qualified Code(s): I10 - Essential (primary) hypertension (5) Hypothyroidism Current Visit: Yes Status: Chronic Assessment and plan: Continue synthroid Qualifiers: Hypothyroidism type: acquired Qualified Code(s): E03.9 - Hypothyroidism, unspecified (6) Seizure disorder Current Visit: Yes Status: Chronic Assessment and plan: Continue home medication Keppra. (7) Type 2 diabetes mellitus Current Visit: Yes Status: Chronic Assessment and plan: Sliding scale coverage Qualifiers: Diabetes mellitus complication status: with unspecified complications Diabetes mellitus custodial insulin use: unspecified custodial insulin use status Qualified Code(s): E11.8 - Type 2 diabetes mellitus with unspecified complications - Time Spent With Patient Greater than 35 minutes - Subjective Interval history: Patient is a 85-year-old female, admitted for A. fib with rapid ventricular response. Her past medical history is significant for CAD S/P stent, A. fib on Coumadin, CHF, COPD, diabetes, hypertension, hyperlipidemia, seizure, thyroid disease, syncope. Patient was seen and examined. She is awake alert oriented 3. Complaint of tired, denies chest pain or shortness of breath. Vital signs stable, heart rate is controlled at 75 on Cardizem drip. Cardiology consult appreciated, will stop sotalol, keep the by mouth Cardizem and beta kenia. Taper to stop cardizem drip. Continue closely monitoring. - Constitutional Vitals: Temp Pulse Resp BP Pulse Ox 97.6 F 74 14 108/72 96 06/26/16 14:15 06/26/16 14:15 06/26/16 14:15 06/26/16 14:15 06/26/16 14:15 General appearance: Present: cooperative, mild distress, A&O X 3, pleasant, obese, answers questions appropriately - Head Head exam: Present: atraumatic, normocephalic - Eye Eye exam: Present: PERRL, conjuntiva pink, sclera anicteric Pupils: Present: PERRL - Neck Neck exam general surgery: Present: supple, trachea midline. Absent: lymphadenopathy - Respiratory Respiratory exam: Present: CTAB. Absent: accessory muscle use, rales, rhonchi, wheezes - Cardiovascular Cardiovascular exam: Present: irregular rhythm, +S1, +S2. Absent: diastolic murmur, gallop, rubs, systolic murmur - GI/Abdominal GI/Abdominal exam: Present: normal bowel sounds, soft, no peritoneal signs. Absent: distended, tenderness - Extremities Exam Extremities exam: Present: warm, radial pulses palpable and symetrical. Absent : calf tenderness, cyanotic, pedal edema - Neurological Exam Neurological exam: Present: CN II-XII intact, oriented X3, no focal deficits. Absent: pronater drift, facial droop, speech deficit - Skin Skin exam: Present: dry, intact Internal Medicine: Result - Labs CBC & Chem 7: 06/26/16 04:48 06/26/16 04:48 Labs: Short CBC 06/26/16 Range/Units 04:48 WBC 11.7 H (4.3-11.1) K/mcL Hgb 11.0 L (11.5-15.4) g/dL Hct 35.3 (35.3-44.9) % Plt Count 154 (140-400) K/mcL BMP 06/26/16 04:48 Sodium 132 L Potassium 4.3 Chloride 102 Carbon Dioxide 19 BUN 33 H Creatinine 0.82 Glucose 334 H Calcium 8.9 Cardiac Enzymes 06/26/16 06/26/16 Range/Units 04:48 10:57 Troponin I 0.01 0.01 (0-0.03) ng/mL Urine 02/18/17 Range/Units 04:30 Urine Color Yellow (Yellow) Urine Clarity Cloudy A (Clear) Urine pH 6.0 (5.0-8.0) pH Units Ur Specific [place] 1.024 (1.010-1.025) Urine Protein Negative (Neg-Trace) mg/dL Urine Glucose (UA) 500 H (Normal) mg/dL - ABG Interpretation ABG results: PT/INR, D-dimer PT 45.4 Seconds (9.4-12.1) H* 06/26/16 04:48 - VTE Documentation of Mechanical Device: Graduated compression elastic hosiery Consult Discharge Plan - Plan Referrals: Alonzo Cano DO [Primary Care Provider] -
[2016-06-26] MEDS ORDERED: Dextrose Gel 15 GM PO PRN ×2 (16:28)
[2016-06-26] MEDS ORDERED: D5% in Water 1,000 ML IV PRN (16:28)
[2016-06-26] MEDS ORDERED: *HR* Dextrose 50 % in Water (Syg) 50 ML SYRINGE IVP PRN (16:28)
[2016-06-26] MEDS: Insulin LISPRO 300 UNITS/3 ML VIAL SQ SCH ×2 (16:51→21:13)
--- NOTE | 2016-06-26 17:08 | ECHO - Doppler Report ---
Echocardiogram Name: Mendy Aleman Date of Study: 06/26/2016 Date: 1930 Ht: 60.0 in Medical Record#: [id number] Age: 85 Wt: 176.0 lb Gender: Female BSA: 1.77 Order #: [id number] Location: [facility] Room #: [id number] Reading Physician: Noelle Vera DO Refinery Pipeline Operator: Marla Lin RVT, [facility] Ordering Physician: Clyde Courtney MD Primary Physician: Alonzo Cano DO Indications: Atrial fibrillation Impressions: LVEF 50%. Indeterminate diastolic function. Normal right ventricular size and function. Moderate mitral regurgitation. Mild tricuspid regurgitation. Mild pulmonic regurgitation. At least mild pulmonary hypertension by TR gradient, 39 mmHg. IVC is not well visualized. Left Ventricular Wall Motion: Rest Echo Findings All wall segments showed normal motion. Findings: Study Quality * Technically adequate exam. ECG Findings * Atrial fibrillation. Left Ventricle * Indeterminate diastolic function. * LVEF 50%. * Normal LV size and wall thickness. Aortic Valve * No aortic regurgitation. * No aortic stenosis. * Not well visualized. Mitral Valve * Normal mitral valve structure. * No mitral stenosis. * Moderate mitral regurgitation. Tricuspid Valve * Tricuspid valve not well visualized. * Mild tricuspid regurgitation. Pulmonic Valve * Pulmonic valve is not well visualized. * No pulmonic stenosis. * Mild pulmonic regurgitation. Pulmonary Artery * Pulmonary artery not well visualized. Right Ventricle * Normal right ventricular structure and function. Right Atrium * Normal right atrial size. Left Atrium * Mildly dilated left atrium. Pericardium * There is no pericardial effusion present. Interatrial Septum * Interatrial septum not well evaluated. IVC * The IVC is not well evaluated. Aorta * Not well visualized. History Hypertension Diabetes Hypercholesteremia 2- a Previous Echo was performed. Measurements: BP: 106/ 62 2D Normal Values IVSd: 1.20 cm 0.6 - 1.0 cm LVIDd: 4.10 cm 3.7 - 5.6 cm LVPWd: 1.10 cm 0.6 - 1.1 cm LVIDs: 3.30 cm 1.5 - 3.6 cm AO: 2.50 cm < 4.0 cm LA: 3.70 cm 2.0 - 4.0cm %FS: 19.50 cm >25 % LA volume: 43 Mitral Valve Dec Time:106.00 msec Peak E:1.12 m/sec Peak E' Lat Cong:12.1 cm/s Peak E' Med Cong:8.68 cm/s E/E' Lat Ratio:9.3 E/E' Med Ratio:12.9 Tricuspid Valve TV Regurg Peak Grad: 39.00mmHg TV Regurg Peak Cong: 3.13m/sec Updated by Noelle Vera on 06/26/2016 5:01:46 PM electronically signed on 06/26/2016 5:02:40 PM with status of Final Wall Motion [place]: 1=Normal, 2=Hypokinesis, 3=Akinesis, 4=Dyskinesis, 5=Aneurysmal, 6=Hyperkinetic, X=Not Visualized (Blank)=Missing
[2016-06-26] MEDS ORDERED: *HR* LORazepam 0.5 MG TABLET PO PRN (19:57)
[2016-06-26] MEDS: Melatonin 3 MG TABLET PO SCH (21:11)
[2016-06-27] MEDS ORDERED: Sennosides 8.6 MG TABLET PO PRN (06:05)
[2016-06-27 07:34] LABS: BUN/Creatinine Ratio 31 (6-26); Blood Urea Nitrogen 20 mg/dL (7-20); Carbon Dioxide 22 mEq/L (19-29); Chloride 106 mEq/L (98-109); Glucose 206 mg/dL (70-99); Osmolality,Calculated 289 (280-300); Potassium 4.5 mEq/L (3.5-4.5); Sodium 135 mEq/L (136-145); eGFR For African Americans > 60 (> 60); eGFR For Non-African Americans > 60 (> 60)
[2016-06-27 08:06] LABS: Eosinophils # 0.2 K/mcL (0.0-0.6); Hematocrit 33.2 % (35.3-44.9); Hemoglobin 10.8 g/dL (11.5-15.4); Immature Granulocytes % 0.4 % (0-4); Lymphocytes % 21.6 %; Mean Corpuscular HGB Conc 32.5 g/dL (31.6-35.5); Mean Corpuscular Hemoglobin 27.6 pg (28.0-33.3); Mean Corpuscular Volume 84.9 fL (83.0-100.0); Mean Platelet Volume 9.4 fL (9.4-12.4); Monocytes # 0.8 K/mcL (0.0-1.3); Monocytes % 9.2 %; Neutrophils # 6.1 K/mcL (1.6-8.9); Platelet Count 147 K/mcL (140-400); Red Blood Count 3.91 M/mcL (3.82-4.97); Red Cell Distribution Width 19.2 % (11.5-14.5); Segmented Neutrophils % 66.8 %
[2016-06-27] MEDS: Budesonide/Formoterol 160/4.5 MDI IH SCH ×2 (08:28→22:50)
[2016-06-27] MEDS: *HR* Metoprolol 5 MG/5 ML VIAL IVP PRN (09:14)
[2016-06-27] MEDS: Insulin LISPRO 300 UNITS/3 ML VIAL SQ SCH ×4 (09:33→20:55)
[2016-06-27] MEDS: levETIRAcetam 250 MG TABLET PO SCH ×2 (09:39→12:39)
[2016-06-27] MEDS ORDERED: *HR* Promethazine 25 MG/ML VIAL IVP PRN (10:40)
[2016-06-27] MEDS ORDERED: *HR* Promethazine 25 MG/ML VIAL ONE (10:45)
--- NOTE | 2016-06-27 11:01 | Cardiology Progress Note ---
Date of Encounter: 06/27/16 Time of Encounter: 10:30 Assessment and Plan (1) Atrial fibrillation with RVR Current Visit: Yes Status: Acute Presented with Atrial fibrillation with RVR--reports long standing hx, on Coumadin for AC. Follows with Dr. Florez at [facility]. She reports has been in atrial fibrillation for the past 4 months despite sotalol. Recommend stopping sotalol, and start rate control strategy. HR 70's upon exam. Change short acting cardizem to po, 180 mg to start now. Due to worsening dizziness, likely from chronic vertigo, will stop ARB and monitor BP close as has been hypotensive. Echocardiogram shows preserved LVEF, 50%. INR supratherapeutic 4.0; recommend resuming coumadin when less than 3.0. If she continues to have multiple falls, recommend re-evaluation safety of long- term anticoagulation. Can be discussed with primary orthopaedic general at f/u. Cardiology will sign-off, please call with questions. Recommend close outpatient follow-up with Dr. Florez upon discharge. Discussion w patient/family: The assessment and plan as outlined above was discussed with the patient and/or family members who expressed understanding and agreement. All questions were answered. Thank you for involving us in the care of your patient. Please call with any questions. The patient was discussed and reviewed with Dr. Vera; changes to be made accordingly. Subjective Principal diagnosis: Afib Interval history: Seen and examined. Reports nausea today, states bowels have not moved in 4 days. Denies chest pain or discomfort, palpitations, or dyspnea. Objective Vital Signs, Last 4 Hours Temp Pulse Resp BP Pulse Ox 06/27/16 07:18 97.9 F 95 20 141/78 95 General: Conversant, No Apparent Distress HEENT: Atraumatic, Normocephaly, Mucus Membranes Moist Cardiac: Other (irregulary irregular) Lungs: Normal Breath Sounds Neuro: Alert and responsive Abdomen: Soft, Other (tender) Skin: No rashes noted on visualized skin Musculoskeletal: No Chest Wall Tenderness Extremities: No Edema, Normal Pulses Results 06/27/16 06:56 06/27/16 06:56 Lab Results 06/26/16 06/27/16 06/27/16 10:57 06:56 06:56 WBC 9.2 Hgb 10.8 L Hct 33.2 L Plt Count 147 Sodium 135 L Potassium 4.5 Chloride 106 BUN 20 D Creatinine 0.65 Glucose 206 H Calcium 8.0 L Troponin I 0.01 Active Medications Acetaminophen (Tylenol) 650 mg PO Q6HR PRN PRN Reason: Mild Pain (1-3) Stop: 12/26/16 01:09 Budesonide/Formoterol Fumarate (Symbicort) 2 puff IH BIDRESP SHAHANA PRN Reason: Protocol Stop: 12/26/16 10:01 Last Admin: 06/27/16 08:28 Dose: Not Given Dextrose/Water (Dextrose 50% (Syg)) 25 ml IVP AD PRN PRN Reason: Hypoglycemia Stop: 12/26/16 16:29 Diltiazem HCl (Cardizem Cd) 180 mg PO DAILY [facility] Stop: 12/27/16 11:01 Docusate Sodium (Colace) 100 mg PO BID PRN PRN Reason: Constipation Stop: 12/26/16 01:09 Last Admin: 06/26/16 20:40 Dose: 100 mg Glucagon (Glucagen) 1 mg IM ONCE PRN PRN Reason: Hypoglycemia Stop: 12/26/16 16:29 Glucose (Gluctose) 15 gm PO ONCE PRN PRN Reason: Hypoglycemia Stop: 12/26/16 16:29 Glucose (Gluctose) 30 gm PO ONCE PRN PRN Reason: Hypoglycemia Stop: 12/26/16 16:29 Sodium Chloride (0.9 % Sodium Chloride) 1,000 mls @ 50 mls/hr IVC .Q20H [facility] Stop: 12/26/16 01:16 Last Admin: 06/26/16 23:46 Dose: 50 mls/hr Dextrose (Dextrose 5%) 1,000 mls @ 100 mls/hr IV CONT PRN PRN Reason: HYPOGLYCEMIA Stop: 12/26/16 16:29 Insulin Human Lispro (Humalog) 0 units SQ HS SHAHANA PRN Reason: Protocol Stop: 12/26/16 21:01 Last Admin: 06/26/16 21:13 Dose: Not Given Insulin Human Lispro (Humalog) 0 units SQ TIDAC SHAHANA PRN Reason: Protocol Stop: 12/26/16 16:31 Last Admin: 06/27/16 09:33 Dose: Not Given Levetiracetam (Keppra) 250 mg PO BID SHAHANA Stop: 12/26/16 09:01 Last Admin: 02/19/17 09:39 Dose: Not Given Levothyroxine Sodium (Synthroid) 75 mcg PO 0600 [facility] Stop: 12/26/16 06:01 Last Admin: 06/27/16 05:33 Dose: 75 mcg Lorazepam (Ativan) 0.5 mg PO HS PRN PRN Reason: Insomnia Stop: 12/26/16 19:58 Meclizine HCl (Antivert) 25 mg PO BID [facility] Stop: 12/26/16 09:01 Last Admin: 06/27/16 09:39 Dose: Not Given Melatonin (Melatonin) 3 mg PO HS SHAHANA Stop: 12/26/16 21:01 Last Admin: 06/26/16 21:11 Dose: 3 mg Metoprolol Tartrate (Lopressor) 5 mg IVP Q6HR PRN PRN Reason: SEE COMMENTS Stop: 12/26/16 01:09 Last Admin: 06/27/16 09:14 Dose: 5 mg Metoprolol Tartrate (Lopressor) 25 mg PO BID [facility] Stop: 12/26/16 09:01 Last Admin: 06/27/16 10:51 Dose: 25 mg Montelukast Sodium (Singulair) 10 mg PO DAILY [facility] Stop: 12/26/16 09:01 Last Admin: 06/27/16 09:39 Dose: Not Given Morphine Sulfate (Morphine Sulfate) 2 mg IVP Q4HR PRN PRN Reason: Severe Pain (7-10) Stop: 12/26/16 01:09 Naloxone HCl (Narcan) 0.4 mg IVP Q2MIN PRN PRN Reason: Opioid Reversal Stop: 12/26/16 01:09 Nitroglycerin (Nitroglycerin) 0.4 mg SL Q5M PRN PRN Reason: Chest Pain Stop: 12/26/16 01:45 Omeprazole (Prilosec) 20 mg PO DAILY@0630 SHAHANA PRN Reason: Protocol Stop: 12/26/16 06:31 Last Admin: 06/27/16 05:32 Dose: 20 mg Ondansetron HCl (Zofran) 4 mg IVP Q8HR PRN PRN Reason: Nausea And Vomiting Stop: 12/26/16 01:09 Last Admin: 06/27/16 07:58 Dose: 4 mg Oxycodone HCl (Roxicodone) 5 mg PO Q6HR PRN PRN Reason: Moderate Pain (4-6) Stop: 12/26/16 01:09 Promethazine HCl (Phenergan) 12.5 mg IVP Q6HR PRN PRN Reason: Nausea And Vomiting Stop: 12/27/16 10:41 Last Admin: 06/27/16 10:53 Dose: 12.5 mg Senna (Senna) 17.2 mg PO HS PRN PRN Reason: Constipation Stop: 12/27/16 06:06 - Imaging and Cardiology Echo: report reviewed Other Results: 12 hour tele: avg HR=94 afib - EKG Interpretation EKG results cardiology: personally reviewed - VTE Documentation of Mechanical Device: Graduated compression elastic hosiery Consult Discharge Plan - Plan Referrals: Alonzo Cano DO [Primary Care Provider] -
[2016-06-27] MEDS: Diltiazem CD (24hr) 180 MG CAPSULE PO SCH (12:39)
--- NOTE | 2016-06-27 16:54 | Internal Med Progress Note ---
Date of Encounter: 06/27/16 Time of Encounter: 09:00 - Assessment and plan (1) Atrial fibrillation with RVR Current Visit: Yes Status: Acute Assessment and plan: Dorothy is a controlled with by mouth Cardizem and metoprolol. Cardiology consult appreciated. Recommendation will be followed. Patient was on Coumadin, which is on hold now because of INR is 4. (2) DVT prophylaxis Current Visit: Yes Status: Acute Assessment and plan: Patient is on Coumadin and has a supratherapeutic INR now. (3) CAD (coronary artery disease), [place] coronary artery Current Visit: Yes Status: Chronic Assessment and plan: No chest pain, continue home medications Qualifiers: [place] vs. transplanted heart: [place] heart Associated angina: without angina Qualified Code(s): I25.10 - Atherosclerotic heart disease of [place] coronary artery without angina pectoris (4) HTN (hypertension) Current Visit: Yes Status: Chronic Assessment and plan: Continue home medication. Hold Losartan because BP is not high Qualifiers: Hypertension type: essential hypertension Qualified Code(s): I10 - Essential (primary) hypertension (5) Hypothyroidism Current Visit: Yes Status: Chronic Assessment and plan: Continue synthroid Qualifiers: Hypothyroidism type: acquired Qualified Code(s): E03.9 - Hypothyroidism, unspecified (6) Seizure disorder Current Visit: Yes Status: Chronic Assessment and plan: Continue home medication Keppra. 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 fib with rapid ventricular response. Her past medical history is significant for CAD S/P stent, A. fib on Coumadin, CHF, COPD, diabetes, hypertension, hyperlipidemia, seizure, thyroid disease, syncope. Patient was seen and examined. She is awake alert oriented 3. Has nausea today, without vomiting. Difficult to have by mouth medications in am, but had medication after the nausea has been controlled. Vital signs stable, heart rate is controlled at 75-100 on po Cardizem and metoprolol. Patient has constipation, stool softener added. Continue closely monitoring. - Constitutional Vitals: Temp Pulse Resp BP Pulse Ox 98.1 F 62 15 109/86 96 06/27/16 16:11 06/27/16 16:11 06/27/16 16:11 06/27/16 16:11 06/27/16 16:11 General appearance: Present: cooperative, mild distress, A&O X 3, pleasant, obese, answers questions appropriately - Head Head exam: Present: atraumatic, normocephalic - Eye Eye exam: Present: PERRL, conjuntiva pink, sclera anicteric Pupils: Present: PERRL - Neck Neck exam general surgery: Present: supple, trachea midline. Absent: lymphadenopathy - Respiratory Respiratory exam: Present: CTAB. Absent: accessory muscle use, rales, rhonchi, wheezes - Cardiovascular Cardiovascular exam: Present: RRR, +S1, +S2. Absent: diastolic murmur, gallop, rubs, systolic murmur - GI/Abdominal GI/Abdominal exam: Present: normal bowel sounds, soft, no peritoneal signs. Absent: distended, tenderness - Extremities Exam Extremities exam: Present: warm, radial pulses palpable and symetrical. Absent : calf tenderness, cyanotic, pedal edema - Neurological Exam Neurological exam: Present: CN II-XII intact, oriented X3, no focal deficits. Absent: pronater drift, facial droop, speech deficit - Skin Skin exam: Present: dry, intact Internal Medicine: Result - Labs CBC & Chem 7: 06/27/16 06:56 06/27/16 06:56 Labs: Short CBC 06/27/16 Range/Units 06:56 WBC 9.2 (4.3-11.1) K/mcL Hgb 10.8 L (11.5-15.4) g/dL Hct 33.2 L (35.3-44.9) % Plt Count 147 (140-400) K/mcL Neutrophils # 6.1 (1.6-8.9) K/mcL BMP 06/27/16 06:56 Sodium 135 L Potassium 4.5 Chloride 106 Carbon Dioxide 22 BUN 20 D Creatinine 0.65 Glucose 206 H Calcium 8.0 L - ABG Interpretation ABG results: PT/INR, D-dimer PT 45.4 Seconds (9.4-12.1) H* 06/26/16 04:48 - VTE Documentation of Mechanical Device: Graduated compression elastic hosiery Consult Discharge Plan - Plan Referrals: Alonzo Cano DO [Primary Care Provider] -
[2016-06-27] MEDS: Melatonin 3 MG TABLET PO SCH (22:29)
[2016-06-28 06:00] LABS: Basophils % 0.1 %; Eosinophils # 0.1 K/mcL (0.0-0.6); Eosinophils % 0.8 %; Hematocrit 33.4 % (35.3-44.9); Hemoglobin 10.4 g/dL (11.5-15.4); Immature Granulocytes % 0.5 % (0-4); Lymphocytes # 1.8 K/mcL (0.6-4.6); Lymphocytes % 16.4 %; Mean Corpuscular HGB Conc 31.1 g/dL (31.6-35.5); Mean Corpuscular Volume 86.8 fL (83.0-100.0); Mean Platelet Volume 9.3 fL (9.4-12.4); Monocytes # 0.8 K/mcL (0.0-1.3); Monocytes % 7.4 %; Red Blood Count 3.85 M/mcL (3.82-4.97); Red Cell Distribution Width 19.4 % (11.5-14.5); Segmented Neutrophils % 74.8 %
[2016-06-28 06:05] LABS: INR 2.4; Prothrombin Time 26.5 Seconds (9.4-12.1)
[2016-06-28 06:13] LABS: BUN/Creatinine Ratio 33 (6-26); Blood Urea Nitrogen 21 mg/dL (7-20); Calcium 8.2 mg/dL (8.6-10.8); Carbon Dioxide 23 mEq/L (19-29); Chloride 104 mEq/L (98-109); Glucose 177 mg/dL (70-99); Osmolality,Calculated 283 (280-300); Potassium 4.6 mEq/L (3.5-4.5); Sodium 133 mEq/L (136-145); eGFR For African Americans > 60 (> 60); eGFR For Non-African Americans > 60 (> 60)
[2016-06-28 06:21] LABS: Neutrophils # 8.2 K/mcL (1.6-8.9)
[2016-06-28 06:22] LABS: Anisocytosis 1+ (Not Present); Platelet Count 133 K/mcL (140-400); Platelet Estimate Decreased (Normal)
[2016-06-28] MEDS: Budesonide/Formoterol 160/4.5 MDI IH SCH (07:56)
[2016-06-28] MEDS: Insulin LISPRO 300 UNITS/3 ML VIAL SQ SCH ×2 (08:29→12:26)
[2016-06-28] MEDS: Diltiazem CD (24hr) 180 MG CAPSULE PO SCH (09:31)
[2016-06-28 11:10] VITALS: BP 114/75
[2016-06-28] MEDS: *HR* Metoprolol 5 MG/5 ML VIAL IVP PRN (12:25)
--- NOTE | 2016-06-28 14:55 | Discharge Summary ---
Date of Encounter: 06/28/16 Time of Encounter: 14:00 - Discharge Diagnosis (1) Atrial fibrillation with RVR Priority: Primary Status: Acute (2) DVT prophylaxis Priority: Secondary Status: Acute (3) CAD (coronary artery disease), [place] coronary artery Priority: Secondary Status: Chronic Qualifiers: [place] vs. transplanted heart: [place] heart Associated angina: without angina Qualified Code(s): I25.10 - Atherosclerotic heart disease of [place] coronary artery without angina pectoris (4) HTN (hypertension) Priority: Secondary Status: Chronic Qualifiers: Hypertension type: essential hypertension Qualified Code(s): I10 - Essential (primary) hypertension (5) Hypothyroidism Priority: Secondary Status: Chronic Qualifiers: Hypothyroidism type: acquired Qualified Code(s): E03.9 - Hypothyroidism, unspecified (6) Type 2 diabetes mellitus Priority: Secondary Status: Chronic Qualifiers: Diabetes mellitus complication status: with unspecified complications Diabetes mellitus half-way insulin use: unspecified half-way insulin use status Qualified Code(s): E11.8 - Type 2 diabetes mellitus with unspecified complications - Discharge Medications Prescriptions: Diltiazem CD (24hr) [Cardizem CD] 180 mg PO DAILY #30 cap.er.24h Docusate [Colace] 100 mg PO BID PRN #60 capsule PRN Reason: Constipation Home Medications: Albuterol Sulfate 2.5 mg IH TID 06/26/16 [History] Albuterol Sulfate [Proair Hfa] 2 puff IH Q4-6H PRN 06/26/16 [History] Budesonide/Formoterol 160/4.5 [Symbicort 160/4.5] 2 puff IH BIDR 06/26/16 [ History] Glimepiride [Amaryl] 2 mg PO DAILY 06/26/16 [History] Levothyroxine Sodium [Levoxyl] 75 mcg PO DAILY 06/26/16 [History] Lisinopril 2.5 mg PO DAILY 06/26/16 [History] Meclizine HCl [Verticalm] 25 mg PO BID 06/26/16 [History] Metoprolol [Lopressor] 25 mg PO BID 06/26/16 [History] Montelukast Sodium [Singulair] 10 mg PO DAILY 06/26/16 [History] Nitroglycerin [Nitrostat] 0.4 mg SL PRN PRN 06/26/16 [History] Torsemide [Demadex] 20 mg PO DAILY 06/26/16 [History] Warfarin [Coumadin] 2 mg PO DAILY 06/26/16 [History] Diltiazem CD (24hr) [Cardizem CD] 180 mg PO DAILY #30 cap.er.24h 06/28/16 [Rx] Docusate [Colace] 100 mg PO BID PRN #60 capsule 06/28/16 [Rx] Allergies/Adverse Reactions: Allergies aspirin Allergy (Unknown, Verified 06/26/16 17:25) See Comments UNSURE OF REACTION- LISTED ON PATIENT'S ECW LIST hydroxyzine [From Vistaril] Allergy (Unknown, Verified 06/26/16 17:25) See Comments UNSURE OF REACTION- LISTED ON PATIENT'S ECW LIST levofloxacin [From Levaquin] Allergy (Unknown, Verified 06/26/16 17:25) See Comments UNSURE OF REACTION- LISTED ON PATIENT'S ECW LIST Penicillins Allergy (Unknown, Verified 06/26/16 17:25) See Comments UNSURE OF REACTION- LISTED ON PATIENT'S ECW LIST ivp dye Allergy (Unknown, Uncoded 06/26/16 17:25) See Comments UNSURE OF REACTION- LISTED ON PATIENT'S ECW LIST Procedures/tests Complete & Pending: Procedures Performed prior 72 hours Category Date Time Status ECG 12 lead ECG [ECG] AM 0600 Y 06/26/16 06:00 Completed - Notes to Outpatient Provider 1. Pt developped A Fib with RVR, she was seen by cardiology consult, recommend stop sotalol, start Cardizem CD 180mg po qd, hold Losartan because BP is not high. 2. She is on coumadin 2 mg po qd, today INR is 2.4, resume coumadin 2mg qd from today. Date of admission: 06/26/16 01:08 Primary care physician: Alonzo Cano Consults: 06/26/16 08:00 Consult to Cardiology [CONS] Routine Comment: Consulting Provider: Cardiology Ami Reason for Consult: A. fib RVR in patient with long history of paroxysmal tachybradycardia arrhythmias. Please evaluate and advise. Time Notified: 03:02 Call Completed: No Discharging clinician: Ricky Smith Anticipated date of discharge: 06/28/16 - Patient Status Disposition: Home, Self-Care Condition: Good Functional capacity at discharge: independent ambulation Overall status at discharge: patient is back to baseline - Discharge Instructions Follow Up With: Alonzo Cano DO [Primary Care Provider] - Forms: ED Satisfaction Letter - Diet and Activity Activity: increase activity as tolerated Diet: diabetic diet Interval History: Pt is a 85-year-old female states the last 2-3 days she has had increasing tachycardia palpitations. She had one episode of fall she also complained of a mild nonproductive cough. She did have one episode of diarrhea also today. She denies any chest pain and states she was recently discharged from [facility] for the same issue Hospital course: Ms. Aleman is a 85 year old female admitted as A Fib with RVR, she also has fall at home. Pt was placed on Cardizem drip, cardiology consult was called and saw pt. Echo was done, LVEF 50%, otherwise unremarkable. Pt's medication was adjusted per cardio recommendation. Pt feels fine after treatment. I saw and examined pt, she is awake, alert, oriented x 3. Denies chest pain or SOB. Vitals are stable. PT/OT evaluated pt and recommend pt discharge home. Pt' s daughter Reina will stay with pt for weeks. Pt has appointment with Dr. Florez on Tuesday (06/30/16) already. Pt will discharge home and f/u with Dr Florez as out patient. Pt's Hx shows she has seizure disorder and was on keppra. Confirmed by pt's daughter that pt has NO history of seizure and was NEVER on keppra. - Time Spent with Patient Total time spent providing and/or coordinating discharge services: 40 min Greater than 30 minutes - Constitutional Vitals: Temp Pulse Resp BP Pulse Ox 97.9 F 96 20 114/75 96 06/28/16 11:04 06/28/16 11:04 06/28/16 11:04 06/28/16 11:04 06/28/16 11:04 General appearance: Present: cooperative, mild distress, A&O X 3, pleasant, obese, answers questions appropriately - Head Head exam: Present: atraumatic, normocephalic - Eye Eye exam: Present: PERRL, conjuntiva pink, sclera anicteric Pupils: Present: PERRL - Neck Neck exam general surgery: Present: supple, trachea midline. Absent: lymphadenopathy - Respiratory Respiratory exam: Present: CTAB. Absent: accessory muscle use, rales, rhonchi, wheezes - Cardiovascular Cardiovascular exam: Present: irregular rhythm, +S1, +S2. Absent: diastolic murmur, gallop, rubs, systolic murmur - GI/Abdominal GI/Abdominal exam: Present: normal bowel sounds, soft, no peritoneal signs. Absent: distended, tenderness - Extremities Exam Extremities exam: Present: warm, radial pulses palpable and symetrical. Absent : calf tenderness, cyanotic, pedal edema - Neurological Exam Neurological exam: Present: CN II-XII intact, oriented X3, no focal deficits. Absent: pronater drift, facial droop, speech deficit - Skin Skin exam: Present: dry, intact - VTE Documentation of Mechanical Device: Graduated compression elastic hosiery
--- NOTE | 2016-06-28 15:41 | Electrocardiograph Report ---
[address] [place], [place] [address] Test Date: 2016-06-25 Pat Name: Mendy Aleman Department: 103 Room: 3B45 Gender: F Shape Hand: : 1930 Requested By: Jerome King Order Number: [id number] Reading MD: Isauro Solano MD Measurements Intervals [place] Rate: 140 P: [place]: 0 QRS: 17 QRSD: 86 T: 138 QT: 286 QTc: 368 Interpretive Statements ATRIAL FIBRILLATION WITH RAPID VENTRICULAR RESPONSE Electronically Signed On 06-28-2016 15:39:15 EST by Isauro Solano MD
--- NOTE | 2016-06-28 15:55 | Electrocardiograph Report ---
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
[2016-06-28] MEDS ORDERED: *HR* Warfarin 2 MG TABLET PO SCH (18:00)
== END 2016-06-28 17:00 | disposition home or self-care (01) | DRG 309 ==
LOC: 3BNU 21:58 → EMEROO 21:58 → SUATTDRO 06-26 01:08 → 3BNU 06-26 01:20
PROVIDERS: ADMIT Internal Medicine; ATTEND Internal Medicine

== ENCOUNTER 2016-08-28 19:44 | Inpatient (IN) ==
[2016-08-28] MEDS ORDERED: 0.9 % Sodium Chloride 1,000 ML IVC ONE (20:19)
--- NOTE | 2016-08-28 20:22 | Emergency Department Note ---
Disposition Clinical Impression: Colitis Diarrhea Qualifiers: Diarrhea type: unspecified type Qualified Code(s): R19.7 - Diarrhea, unspecified Anemia Qualifiers: Anemia type: unspecified type Qualified Code(s): D64.9 - Anemia, unspecified Afib Qualifiers: Atrial fibrillation type: paroxysmal Qualified Code(s): I48.0 - Paroxysmal atrial fibrillation Disposition: Admitted As Inpatient Condition: Fair Nausea/Vomiting/Diarrhea HPI - General Chief complaint: ED Nausea/Vomiting/Diarrhea Stated complaint: diarrhea/low hbg Time Seen by Provider: 08/28/16 19:47 Source: patient, EMS Mode of arrival: EMS Limitations: no limitations Nursing Notes Reviewed: Yes Vital Signs Reviewed: Yes - History of Present Illness HPI Narrative: 87 year old female history of A. fib on Coumadin presents for evaluation of bloody diarrhea. Patient states that she has been having bloody stools since last Tuesday. States that she has been having some abdominal discomfort which is resolved the time of my examination. Patient states she has been having diffuse runny stools throughout the day with >18 stools today. Patient denies any nausea or vomiting. Patient was seen at [facility] with a diagnosis of gastroenteritis. Patient denies any vomiting this time. No chest pain or short of breath. Patient states that she did take her Coumadin this evening. Patient also complains of a "low hemoglobin". Patient is unclear what her hemoglobin level is. Patient present from home via EMS. States that she has never had a recent colonoscopy within the past 5 years. Patient did have a history of ulcers in the remote past back in the 1970s. Pt Subjective Complaint: diarrhea Onset (ago): day(s) Associated symptoms: Denies: chest pain, cough, diaphoresis, fever/chills - Related Data Home Medications Medication Instructions Recorded Confirmed Glimepiride [Amaryl] 2 mg PO DAILY 06/26/16 08/29/16 Levothyroxine Sodium [Levoxyl] 75 mcg PO DAILY 06/26/16 08/29/16 Meclizine HCl [Verticalm] 25 mg PO TID PRN 06/26/16 08/29/16 Montelukast Sodium [Singulair] 10 mg PO DAILY 06/26/16 08/29/16 Warfarin [Coumadin] 1 mg PO DAILY 06/26/16 08/29/16 Furosemide [Lasix] 40 mg PO DAILY 08/29/16 08/29/16 GuaiFENesin ER [Mucinex] 600 mg PO BID PRN 08/29/16 08/29/16 Losartan [Cozaar] 25 mg PO DAILY 08/29/16 08/29/16 Mirtazapine [Remeron] 15 mg PO HS 08/29/16 08/29/16 Pantoprazole Sodium [Protonix] 40 mg PO DAILY 08/29/16 08/29/16 Potassium Chloride [K-Tab ER] 20 meq PO DAILY 08/29/16 08/29/16 RisperiDONE [RisperDAL] 0.25 mg PO BID 08/29/16 08/29/16 Sotalol HCl [Betapace] 120 mg PO BID 08/29/16 08/29/16 Allergies Allergy/AdvReac Type Severity Reaction Status Date / Time aspirin Allergy Unknown See Verified 08/29/16 02:20 Comments hydroxyzine [From Vistaril] Allergy Unknown See Verified 08/29/16 02:20 Comments levofloxacin [From Levaquin] Allergy Unknown See Verified 08/29/16 02:20 Comments Penicillins Allergy Unknown See Verified 08/29/16 02:20 Comments codeine Allergy Hives Verified 08/29/16 02:21 lisinopril Allergy Swelling Verified 08/29/16 02:22 of Lip/Tongue/Throat ivp dye Allergy Unknown See Uncoded 08/29/16 02:21 Comments All systems ED: reviewed and negative except as stated. Constitutional: Reports: as per HPI. Denies: fever Eyes: Reports: as per HPI ENT ED: Reports: as per HPI Cardiovascular: Reports: as per HPI, palpitations. Denies: chest pain Respiratory: Reports: as per HPI. Denies: dyspnea Gastrointestinal: Reports: as per HPI, abdominal pain, diarrhea. Denies: nausea , vomiting Genitourinary: Reports: as per HPI Musculoskeletal: Reports: as per HPI Integumentary: Reports: as per HPI Neurological: Reports: as per HPI Psychiatric: Reports: as per HPI Endocrine: Reports: as per HPI Hematological/Lymphatic: Reports: as per HPI Allergic/Immunologic: Reports: as per HPI Past Medical History - Past Medical History Medical history: Reports: arthritis, asthma, atrial fibrillation, cardiomyopathy , CHF, COPD, coronary artery disease, diabetes, GERD, hyperlipidemia, hypertension, osteoporosis, RA, seizures, thyroid disease, syncope, venous stasis, valvular heart disease, other Surgical history: Reports: angioplasty/stent (Left heart catheterizations with multiple stent placements.), cholecystectomy, hysterectomy (Partial hysterectomy.), orthopedic, other (Back surgery.), other (Hemorrhoid surgery. Ear surgery.), vascular surgery (Varicose vein surgery.) Psychiatric history: Reports: other - Social History Smoking Status: Never smoker Smokeless Tobacco Status: No Alcohol use: Reports: none Drug use: Reports: none Physical Exam - General Limitations: no limitations General appearance: alert, in no apparent distress - Head Head exam: atraumatic, normocephalic, normal inspection - Eye Eye exam: Present: normal appearance, EOMI. Absent: scleral icterus - ENT ENT exam: normal exam, mucous membranes moist - Neck Neck exam: Present: normal inspection, trachea midline - Chest Chest inspection: Present: normal inspection - Respiratory Respiratory exam: Present: normal lung sounds bilaterally. Absent: respiratory distress - Cardiovascular Cardiovascular exam: Present: regular rate, irregular rhythm - Abdominal Exam Abdominal exam: Present: soft, Non-Tender - Rectal Exam Keg Header present during exam: Yes Rectal exam: Present: other (Sent to the lab for testing). Absent: decreased rectal tone, bloody stool, hemorrhoids - Extremities Exam Extremities exam: Present: normal inspection, pedal edema (Trace bilateral) - Back Exam Back exam: Present: normal inspection - Neurological Exam Neurological exam: Present: alert, oriented X3 - Skin Skin exam: Present: warm, dry, intact, normal color Course Course Narrative: Patient see and examined. Patient will get basic lab work, EKG, and c diff. Appears hemodynamically stable. - Reevaluation(s) Reevaluation #1: Patient seen and examined. Patient's resting comfortably. Patient's labs show that she is stable anemia. Since the patient has had profuse diarrhea over several days will get a abdomen and pelvis CT. Time: 22:23 Vital Signs Temperature 98.0 F 08/28/16 19:47 Pulse Rate 116 08/28/16 19:47 Respiratory Rate 20 08/28/16 19:47 Blood Pressure 108/66 08/28/16 19:47 O2 Sat by Pulse Oximetry 98 08/28/16 19:47 Temperature 97.5 F L 08/29/16 02:32 Pulse Rate 113 08/29/16 02:32 Respiratory Rate 18 08/29/16 02:32 Blood Pressure 119/81 08/29/16 02:32 O2 Sat by Pulse Oximetry 98 08/29/16 02:32 Oxygen Delivery Oxygen Delivery Room Air Nausea/Vomiting/Diarrhea - MDM Narrative Medical decision making narrative: 85-year-old female presents for evaluation of diarrhea. Patient had profuse diarrhea over the past 5 days or so. Patient's says that she has been having 18 bouts of diarrhea today. Patient also states she had a low hemoglobin. His labs and chemistries reviewed. Patient's hemoglobin is stable. Patient does have positive stool guaiac. Patient had a CAT scan M pelvis without contrast due to her contrast allergy which shows mild colitis. Due to the onset of the patient's symptoms and the duration of patient's symptoms. Patient will likely be high risk for outpatient therapy will be admitted for IV therapy and monitoring. Patient is aware of plan of care and agree. - Lab Data Lab results reviewed: Yes I reviewed the patient's lab results. Result diagrams: 08/28/16 21:30 08/28/16 21:30 Lab Results 08/28/16 08/28/16 08/28/16 Range/Units 21:00 21:00 21:00 WBC (4.3-11.1) K/mcL RBC (3.82-4.97) M/mcL Hgb (11.5-15.4) g/dL Hct (35.3-44.9) % MCV (83.0-100.0) fL MCH (28.0-33.3) pg MCHC (31.6-35.5) g/dL RDW (11.5-14.5) % Plt Count (140-400) K/mcL MPV (9.4-12.4) fL Immature Gran % (0-4) % Seg Neutrophils % % Lymphocytes % % Monocytes % % Eosinophils % % Basophils % % Neutrophils # (1.6-8.9) K/mcL Lymphocytes # (0.6-4.6) K/mcL Monocytes # (0.0-1.3) K/mcL Eosinophils # (0.0-0.6) K/mcL Basophils # (0.0-0.2) K/mcL PT (9.4-12.1) Seconds INR Sodium (136-145) mEq/L Potassium (3.5-4.5) mEq/L Chloride (98-109) mEq/L Carbon Dioxide (19-29) mEq/L BUN (7-20) mg/dL Creatinine (0.57-1.11) mg/dL Est GFR ( Amer) (> 60) Est GFR (Non-Af Amer) (> 60) BUN/Creatinine Ratio (6-26) Glucose (70-99) mg/dL Calculated Osmolality (280-300) Calcium (8.6-10.8) mg/dL Total Bilirubin (0.2-1.2) mg/dL AST (5-34) Units/L ALT (0-55) Units/L Alkaline Phosphatase (38-126) Units/L Troponin I (0-0.03) ng/mL Serum Total Protein (6.0-8.3) g/dL Albumin (3.5-5.0) g/dL Globulin (2.4-3.5) g/dL Albumin/Globulin Ratio (1.1-2.2) Lipase (8-78) Units/L Stool Occult Blood Positive A (Negative) Stl C. diff Tox B Gene TNP Specimen Rejected Not Liquid Blood Type Antibody Screen 08/28/16 08/28/16 08/28/16 Range/Units 21:30 21:30 21:30 WBC 8.5 (4.3-11.1) K/mcL RBC 4.26 (3.82-4.97) M/mcL Hgb 10.9 L (11.5-15.4) g/dL Hct 35.8 (35.3-44.9) % MCV 84.0 (83.0-100.0) fL MCH 25.6 L (28.0-33.3) pg MCHC 30.4 L (31.6-35.5) g/dL RDW 19.5 H (11.5-14.5) % Plt Count 227 (140-400) K/mcL MPV 8.9 L (9.4-12.4) fL Immature Gran % 0.4 (0-4) % Seg Neutrophils % 60.1 % Lymphocytes % 26.1 % Monocytes % 10.8 % Eosinophils % 2.2 % Basophils % 0.4 % Neutrophils # 5.1 (1.6-8.9) K/mcL Lymphocytes # 2.2 (0.6-4.6) K/mcL Monocytes # 0.9 (0.0-1.3) K/mcL Eosinophils # 0.2 (0.0-0.6) K/mcL Basophils # 0.0 (0.0-0.2) K/mcL PT (9.4-12.1) Seconds INR Sodium 140 (136-145) mEq/L Potassium 3.8 (3.5-4.5) mEq/L Chloride 105 (98-109) mEq/L Carbon Dioxide 26 (19-29) mEq/L BUN 19 (7-20) mg/dL Creatinine 0.93 (0.57-1.11) mg/dL Est GFR ( Amer) > 60 (> 60) Est GFR (Non-Af Amer) 57 L (> 60) BUN/Creatinine Ratio 20 (6-26) Glucose 135 H (70-99) mg/dL Calculated Osmolality 294 (280-300) Calcium 9.5 (8.6-10.8) mg/dL Total Bilirubin 0.4 (0.2-1.2) mg/dL AST 25 (5-34) Units/L ALT 20 (0-55) Units/L Alkaline Phosphatase 82 (38-126) Units/L Troponin I 0.01 (0-0.03) ng/mL Serum Total Protein 7.6 (6.0-8.3) g/dL Albumin 3.1 L (3.5-5.0) g/dL Globulin 4.5 H (2.4-3.5) g/dL Albumin/Globulin Ratio 0.7 L (1.1-2.2) Lipase 17 (8-78) Units/L Stool Occult Blood (Negative) Stl C. diff Tox B Gene Specimen Rejected Blood Type Antibody Screen 08/28/16 08/28/16 Range/Units 21:30 21:30 WBC (4.3-11.1) K/mcL RBC (3.82-4.97) M/mcL Hgb (11.5-15.4) g/dL Hct (35.3-44.9) % MCV (83.0-100.0) fL MCH (28.0-33.3) pg MCHC (31.6-35.5) g/dL RDW (11.5-14.5) % Plt Count (140-400) K/mcL MPV (9.4-12.4) fL Immature Gran % (0-4) % Seg Neutrophils % % Lymphocytes % % Monocytes % % Eosinophils % % Basophils % % Neutrophils # (1.6-8.9) K/mcL Lymphocytes # (0.6-4.6) K/mcL Monocytes # (0.0-1.3) K/mcL Eosinophils # (0.0-0.6) K/mcL Basophils # (0.0-0.2) K/mcL PT 14.3 H (9.4-12.1) Seconds INR 1.3 Sodium (136-145) mEq/L Potassium (3.5-4.5) mEq/L Chloride (98-109) mEq/L Carbon Dioxide (19-29) mEq/L BUN (7-20) mg/dL Creatinine (0.57-1.11) mg/dL Est GFR ( Amer) (> 60) Est GFR (Non-Af Amer) (> 60) BUN/Creatinine Ratio (6-26) Glucose (70-99) mg/dL Calculated Osmolality (280-300) Calcium (8.6-10.8) mg/dL Total Bilirubin (0.2-1.2) mg/dL AST (5-34) Units/L ALT (0-55) Units/L Alkaline Phosphatase (38-126) Units/L Troponin I (0-0.03) ng/mL Serum Total Protein (6.0-8.3) g/dL Albumin (3.5-5.0) g/dL Globulin (2.4-3.5) g/dL Albumin/Globulin Ratio (1.1-2.2) Lipase (8-78) Units/L Stool Occult Blood (Negative) Stl C. diff Tox B Gene Specimen Rejected Blood Type B POSITIVE Antibody Screen NEGATIVE - Radiology Data Radiology results reviewed: Yes I reviewed the patient's radiology results. - EKG Data EKG attestation: Yes I reviewed and interpreted this EKG. Rate: tachycardia Rhythm: A.Fib [place]/QRS: normal Interpretation: nonspecific ST-T wave changes S.B.A.R. - S.B.A.R. Situation: Demographics Background: Presenting Complaint Assessment: Vital Signs, Course and respsone to treatment, Patient/Family Expectation, Pertinant Lab Results Recommendation: Barrier(s) to disposition, Recommendation based on pending studies, treatments, or consults Rashmi Report Given to: Dr. Naty Caraballo Repor Time: 00:10 Attestation Statement - Attestation Attestation: I examined this patient and my medical decision-making was reviewed with the STRINGING MACHINE OPERATOR/PA/Advanced Practice Nurse/Resident Physician. I agree with the documented findings, disposition and treatment plan as described except to the extent set forth below. Patient to ED complaining of diarrhea. States 18 episodes today. Nonbloody. She was called below hemoglobin and does take Coumadin. On examination she is awake and alert pleasant conversant in no distress. Plan. Labs including type and cross, C. difficile and stool Hemoccult. Hemoccult-positive. Normal white count but CT scan shows colitis. Antibiotic and admit.
[2016-08-28 21:37] LABS: Basophils % 0.4 %; Eosinophils # 0.2 K/mcL (0.0-0.6); Eosinophils % 2.2 %; Hematocrit 35.8 % (35.3-44.9); Hemoglobin 10.9 g/dL (11.5-15.4); Immature Granulocytes % 0.4 % (0-4); Lymphocytes # 2.2 K/mcL (0.6-4.6); Lymphocytes % 26.1 %; Mean Corpuscular HGB Conc 30.4 g/dL (31.6-35.5); Mean Corpuscular Hemoglobin 25.6 pg (28.0-33.3); Mean Platelet Volume 8.9 fL (9.4-12.4); Monocytes # 0.9 K/mcL (0.0-1.3); Monocytes % 10.8 %; Neutrophils # 5.1 K/mcL (1.6-8.9); Platelet Count 227 K/mcL (140-400); Red Blood Count 4.26 M/mcL (3.82-4.97); Red Cell Distribution Width 19.5 % (11.5-14.5); Segmented Neutrophils % 60.1 %
[2016-08-28 21:42] LABS: INR 1.3; Prothrombin Time 14.3 Seconds (9.4-12.1)
[2016-08-28 22:08] LABS: Alanine Aminotransferase 20 Units/L (0-55); Albumin 3.1 g/dL (3.5-5.0); Albumin/Globulin Ratio 0.7 (1.1-2.2); Alkaline Phosphatase 82 Units/L (38-126); Aspartate Amino Transferase 25 Units/L (5-34); BUN/Creatinine Ratio 20 (6-26); Bilirubin,Total 0.4 mg/dL (0.2-1.2); Blood Urea Nitrogen 19 mg/dL (7-20); Calcium 9.5 mg/dL (8.6-10.8); Carbon Dioxide 26 mEq/L (19-29); Chloride 105 mEq/L (98-109); Globulin 4.5 g/dL (2.4-3.5); Glucose 135 mg/dL (70-99); Lipase 17 Units/L (8-78); Osmolality,Calculated 294 (280-300); Potassium 3.8 mEq/L (3.5-4.5); Sodium 140 mEq/L (136-145); Total Protein 7.6 g/dL (6.0-8.3); eGFR For African Americans > 60 (> 60); eGFR For Non-African Americans 57 (> 60)
[2016-08-28] MEDS ORDERED: MetroNIDAZOLE 500 MG/100 ML 500 MG/100 ML BAG IVPB ONE (23:31)
[2016-08-28] MEDS ORDERED: 0.9 % Sodium Chloride 500 ML IVC ONE (23:59)
[2016-08-29] MEDS ORDERED: Ipratropium/Albuterol Neb 3 ML IH PRN (02:28)
[2016-08-29] MEDS ORDERED: 0.9 % Sodium Chloride 1,000 ML IVC SCH (02:30)
[2016-08-29] MEDS ORDERED: Acetaminophen 325 MG TABLET PO PRN (02:30)
[2016-08-29] MEDS ORDERED: Naloxone 0.4 MG/ML INJ IVP PRN (02:30)
[2016-08-29] MEDS ORDERED: Ondansetron 4 MG/2 ML VIAL IVP PRN (02:30)
--- NOTE | 2016-08-29 02:35 | Internal Med History&Physical ---
Date of Encounter: 08/29/16 Time of Encounter: 02:33 Assessment and Plan (1) Dehydration Current visit: Yes Status: Acute Secondary to acute colitis likely bacterial Hold warfarin due to rectal bleed possibly from colitis, consider GI consult if worse Monitor CBC, recent stool sample to recheck for C. difficile Start Rocephin and Flagyl Protonix IV for GI prophylaxis and sequential compression devices for DVT prophylaxis. Patient will be admitted for observation. Full code. Time spent on this admission 40 minutes. High risk due to dehydration (2) Afib Current visit: Yes Status: Acute Hold warfarin May continue diltiazem Qualifiers: Atrial fibrillation type: paroxysmal Qualified Code(s): I48.0 - Paroxysmal atrial fibrillation (3) Colitis Current visit: Yes Status: Acute (4) CAD (coronary artery disease), [place] coronary artery Current visit: No Status: Chronic Stable Qualifiers: [place] vs. 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 Aleman is a 85 year old female with a past medical history of atrial fibrillation on Coumadin, COPD not oxygen dependent, diabetes type 2 not insulin -dependent who came to the emergency room complaining of severe diarrhea. She was brought by the EMS as she has been having nonstop diarrhea since Tuesday/5 days ago. The patient said that the diarrhea was bloody and she has had like 18 bouts of watery diarrhea since yesterday. Hemoccult was positive glucose was 135 her heart rate was 116. CT scan of the abdomen showed sigmoid colitis and a liver cyst. The Clostridium difficile he test was rejected by lab as a privately that sample was not loose enough but the patient says that her bowel movements have been more watery. Patient was prescribed ciprofloxacin at the emergency room but this was not administered that she is allergic to Levaquin. Metronidazole was given. She denies any cramps at the moment but she was having lots of gas and felt very weak. Past Med Surg Social Fam HX - Past Medical History Medical history: arthritis, asthma, atrial fibrillation (On Coumadin), cardiomyopathy, CHF (Diastolic), COPD (Not oxygen dependent), coronary artery disease (With history of stents), diabetes (Insulin-dependent), GERD, hyperlipidemia, hypertension, osteoporosis, RA (PMR), thyroid disease ( Hypothyroidism), syncope, venous stasis, valvular heart disease, other (There was history of seizures in the past according to prior records but the patient denies any history of seizures) Psychiatric history: other - Past Surgical History Surgical History: angioplasty/stent, cholecystectomy, hysterectomy, orthopedic, other, other, vascular surgery - Social History Smoking Status: Never smoker Smokeless Tobacco Status: No Alcohol use: none Drug use: none - Family History Mother Brother Hx Family Cardiac Disorders: Yes Hx Family Respiratory Disorders: Yes Hx Family Endocrine Disorder: Yes - Additional Family History Additional family history: Mother with Alzheimer's and father with CAD Internal Medicine - H&P: Meds Glimepiride [Amaryl] 2 mg PO DAILY 06/26/16 [History] Levothyroxine Sodium [Levoxyl] 75 mcg PO DAILY 06/26/16 [History] Meclizine HCl [Verticalm] 25 mg PO TID PRN 06/26/16 [History] Montelukast Sodium [Singulair] 10 mg PO DAILY 06/26/16 [History] Warfarin [Coumadin] 1 mg PO DAILY 06/26/16 [History] Furosemide [Lasix] 40 mg PO DAILY 08/29/16 [History] GuaiFENesin ER [Mucinex] 600 mg PO BID PRN 08/29/16 [History] Losartan [Cozaar] 25 mg PO DAILY 08/29/16 [History] Mirtazapine [Remeron] 15 mg PO HS 08/29/16 [History] Pantoprazole Sodium [Protonix] 40 mg PO DAILY 08/29/16 [History] Potassium Chloride [K-Tab ER] 20 meq PO DAILY 08/29/16 [History] RisperiDONE [RisperDAL] 0.25 mg PO BID 08/29/16 [History] Sotalol HCl [Betapace] 120 mg PO BID 08/29/16 [History] Allergies aspirin Allergy (Unknown, Verified 08/29/16 02:20) See Comments Hives hydroxyzine [From Vistaril] Allergy (Unknown, Verified 08/29/16 02:20) See Comments Hives levofloxacin [From Levaquin] Allergy (Unknown, Verified 08/29/16 02:20) See Comments Hives Penicillins Allergy (Unknown, Verified 08/29/16 02:20) See Comments hives codeine Allergy (Verified 08/29/16 02:21) Hives lisinopril Allergy (Verified 08/29/16 02:22) Swelling of Lip/Tongue/Throat ivp dye Allergy (Unknown, Uncoded 08/29/16 02:21) See Comments Anaphylaxis All Systems PM: A 10-system review of systems was performed and is negative for pertinent findings except as documented above in the HPI. Review of systems: no chest pain, no shortness of breath, other systems out of the 10 reviewed were negative - Constitutional Vitals: Temp Pulse Resp BP Pulse Ox 98.0 F 116 20 108/66 98 08/28/16 19:47 08/28/16 19:47 08/28/16 19:47 08/28/16 19:47 08/28/16 19:47 General appearance: Present: A&O X 3 - Head Head exam: Present: atraumatic, normocephalic - Eye Eye exam: Present: PERRL, conjuntiva pink, sclera anicteric Pupils: Present: PERRL - Neck Neck exam general surgery: Present: supple, trachea midline. Absent: lymphadenopathy - Respiratory Respiratory exam: Present: CTAB. Absent: accessory muscle use, rales, rhonchi, wheezes - Cardiovascular Cardiovascular exam: Present: RRR, +S1, +S2. Absent: diastolic murmur, gallop, rubs, systolic murmur - GI/Abdominal GI/Abdominal exam: Present: distended, normal bowel sounds, soft, no peritoneal signs. Absent: tenderness - Extremities Exam Extremities exam: Present: warm, radial pulses palpable and symetrical. Absent : calf tenderness, cyanotic, pedal edema - Neurological Exam Neurological exam: Present: CN II-XII intact, oriented X3, no focal deficits. Absent: pronater drift, facial droop, speech deficit - Skin Skin exam: Present: dry, intact Internal Med - H&P Results - Labs CBC & Chem 7: 08/28/16 21:30 08/28/16 21:30
[2016-08-29] MEDS: Pantoprazole 40 MG VIAL IVP SCH (05:55)
[2016-08-29] MEDS: MetroNIDAZOLE 500 MG/100 ML 500 MG/100 ML BAG IVPB SCH ×2 (07:45→21:14)
[2016-08-29 08:06] LABS: Basophils % 0.4 %; Eosinophils # 0.2 K/mcL (0.0-0.6); Eosinophils % 2.5 %; Hematocrit 30.9 % (35.3-44.9); Hemoglobin 9.6 g/dL (11.5-15.4); Immature Granulocytes % 0.3 % (0-4); Lymphocytes # 2.2 K/mcL (0.6-4.6); Lymphocytes % 30.4 %; Mean Corpuscular HGB Conc 31.1 g/dL (31.6-35.5); Mean Corpuscular Volume 83.7 fL (83.0-100.0); Mean Platelet Volume 9.7 fL (9.4-12.4); Monocytes % 13.1 %; Neutrophils # 3.9 K/mcL (1.6-8.9); Platelet Count 204 K/mcL (140-400); Red Blood Count 3.69 M/mcL (3.82-4.97); Red Cell Distribution Width 19.3 % (11.5-14.5); Segmented Neutrophils % 53.3 %
[2016-08-29 08:19] LABS: BUN/Creatinine Ratio 25 (6-26); Blood Urea Nitrogen 16 mg/dL (7-20); Calcium 8.5 mg/dL (8.6-10.8); Carbon Dioxide 17 mEq/L (19-29); Chloride 112 mEq/L (98-109); Glucose 70 mg/dL (70-99); Osmolality,Calculated 290 (280-300); Potassium 3.9 mEq/L (3.5-4.5); Sodium 140 mEq/L (136-145); eGFR For African Americans > 60 (> 60); eGFR For Non-African Americans > 60 (> 60)
--- NOTE | 2016-08-29 11:41 | Event Note ---
Date of Encounter: 08/29/16 Time of Encounter: 09:30 Patient seen and examined. On examination, patient sitting upright in her chair. Patient is alert and oriented 3 and denies pain. She states that she has never had pain with all this diarrhea. She states she has had diarrhea since last Tuesday, with this being day 5. Abdominal CT consistent with mild colitis. Hemoccult positive however she remains hemodynamically stable thus far , we will continue to trend. Continue Rocephin and Flagyl. We have sent to stool samples to the lab thus far but neither of which qualified for C. difficile testing as they were not liquid per policy. Tachycardia noted however her home medications have just been resumed including sotalol. Holding her Coumadin at this time secondary to anemia and positive guaiac. We will place IPCs. Patient and HER-2 daughters are at the bedside of requesting a colonoscopy, will bring GI on board. Colonoscopy at their discretion given that she has colitis. Awaiting stool culture. Will continue IVF. Patient appears slightly dehydrated on examination but continues to endorse good PO intake but adds "I eat everything, but no matter what it is, it goes right through me." ITS Impressions Abdomen/Pelvis CT 08/28/16 22:46 IMPRESSION: 1. Findings are suggestive of mild colitis of the midsigmoid colon. D/ / 08/28/2016 23:27:45 Corbin Morgan MD / angeli Interpreting Provider: Corbin Morgan MD
[2016-08-29] MEDS ORDERED: Desitin (Zinc Oxide) 56 GM TUBE TP PRN (11:43)
[2016-08-29] MEDS: risperiDONE 0.25 MG TABLET PO SCH ×2 (12:46→21:20)
[2016-08-29] MEDS: 0.9 % Sodium Chloride 1,000 ML IVC SCH (13:01)
--- NOTE | 2016-08-29 20:46 | Electrocardiograph Report ---
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
[2016-08-29] MEDS: Mirtazapine 15 MG TABLET PO SCH (21:21)
[2016-08-30] MEDS ORDERED: Melatonin 3 MG TABLET PO PRN (00:18)
[2016-08-30] MEDS: 0.9 % Sodium Chloride 1,000 ML IVC SCH ×3 (00:33→20:56)
[2016-08-30 04:33] LABS: Basophils % 0.3 %; Eosinophils # 0.2 K/mcL (0.0-0.6); Eosinophils % 3.1 %; Hematocrit 28.2 % (35.3-44.9); Hemoglobin 8.3 g/dL (11.5-15.4); Immature Granulocytes % 0.1 % (0-4); Lymphocytes # 1.6 K/mcL (0.6-4.6); Lymphocytes % 23.6 %; Mean Corpuscular HGB Conc 29.4 g/dL (31.6-35.5); Mean Corpuscular Hemoglobin 25.3 pg (28.0-33.3); Mean Platelet Volume 8.7 fL (9.4-12.4); Monocytes # 0.8 K/mcL (0.0-1.3); Monocytes % 11.3 %; Neutrophils # 4.2 K/mcL (1.6-8.9); Platelet Count 203 K/mcL (140-400); Red Blood Count 3.28 M/mcL (3.82-4.97); Red Cell Distribution Width 19.3 % (11.5-14.5); Segmented Neutrophils % 61.6 %
[2016-08-30 04:46] LABS: BUN/Creatinine Ratio 20 (6-26); Blood Urea Nitrogen 12 mg/dL (7-20); Carbon Dioxide 19 mEq/L (19-29); Chloride 117 mEq/L (98-109); Glucose 90 mg/dL (70-99); Osmolality,Calculated 293 (280-300); Potassium 3.1 mEq/L (3.5-4.5); Sodium 142 mEq/L (136-145); eGFR For African Americans > 60 (> 60); eGFR For Non-African Americans > 60 (> 60)
[2016-08-30 04:52] LABS: Calcium 7.2 mg/dL (8.6-10.8)
[2016-08-30] MEDS: MetroNIDAZOLE 500 MG/100 ML 500 MG/100 ML BAG IVPB SCH ×3 (05:42→20:56)
[2016-08-30] MEDS: Pantoprazole 40 MG VIAL IVP SCH (05:42)
[2016-08-30] MEDS ORDERED: Potassium Chloride 40 MEQ, Lidocaine 1% 2 ML in D5% in Water 500 ML IVPB ONE (08:01)
[2016-08-30 08:45] LABS: Adenovirus F 40/41 PCR Not detected (Not detect); Astrovirus PCR Not detected (Not detect); Campylobacter by PCR Not detected (Not detect); Cryptosporidium by PCR Not detected (Not detect); Cyclospora cayetanensis PCR Not detected (Not detect); E. coli O157 by PCR Not detected (Not detect); Entamoeba histolytica PCR Not detected (Not detect); Enteroaggregative E.coli(EAEC) Not detected (Not detect); Enteropathogenic E.coli(EPEC) Not detected (Not detect); Enterotoxigenic E.coli (ETEC) Not detected (Not detect); Giardia lamblia PCR Not detected (Not detect); Norovirus GI/GII PCR Not detected (Not detect); Plesiomonas shigelloides PCR Not detected (Not detect); Rotavirus A PCR Not detected (Not detect); Salmonella PCR Not detected (Not detect); Sapovirus PCR Not detected (Not detect); Shig/EnteroinvasiveE coli EIEC Not detected (Not detect); Shigalike tox-prod E coli STEC Not detected (Not detect); Vibrio PCR Not detected (Not detect); Vibrio cholerae PCR Not detected (Not detect); Yersinia enterocolitica PCR Not detected (Not detect)
[2016-08-30] MEDS: risperiDONE 0.25 MG TABLET PO SCH ×2 (10:37→21:05)
--- NOTE | 2016-08-30 14:41 | Gastroenterology Consult Note ---
<Kenneth Cisneros - Last Filed: 08/30/16 14:39> Date of Encounter: 08/30/16 Time of Encounter: 12:30 - Assessment and plan (1) Colitis Current Visit: Yes Status: Acute Assessment and plan: Concern for ischemic colitis. CT A/P with mild wall thickening of midsigmoid colon with slight haziness of the adjacent pericolonic fat c/w mild colitis. Plan for colonoscopy tomorrow. Clear liquid diet today, no red or purple. NPO at midnight. If unable tolerate NuLytely please use MiraLAX prep. If not clear by 6 AM, give 2 tap water enemas. (2) Diarrhea Current Visit: Yes Status: Acute Assessment and plan: GI panel negative. Check fecal calprotectin. Plan for colonoscopy tomorrow. Qualifiers: Diarrhea type: unspecified type Qualified Code(s): R19.7 - Diarrhea, unspecified (3) Anemia Current Visit: Yes Status: Acute Assessment and plan: Continue to monitor CBC and transfuse PRBC as needed. Plan for colonoscopy tomorrow. Qualifiers: Anemia type: unspecified type Qualified Code(s): D64.9 - Anemia, unspecified - Time Spent With Patient Total time spent is greater than 50% in coordination of care (as documented) at patient's floor/unit and/or counseling patient: GI History of Present Illness - Data of Consult Patient: new to practice Consult date: 08/30/16 Requesting Physician: Adeola Scanlon - Consult Narrative Reason for consult: Colitis, diarrhea, FOBT + History of present illness: Ms. Aleman is a 85 year old female with PMHx of Afib on Coumadin, cardiomyopathy , CHF, COPD, CAD, DM, GERD, HTN who presented to the ED with c/o diarrhea. he was brought by the EMS as she has been having nonstop diarrhea since Tuesday. The patient said that the diarrhea was bloody and she has had like 18 bouts of watery diarrhea the day before admission. FOBT was positive. CT A/P c/w mild sigmoid colitis, and she was started on Rocephin and Flagyl. Patient and her 2 daughters requested colonoscopy. Procedures: Colonoscopy 30-40 years ago, per patient report. NSAIDs: None Anticoagulation Coumadin Past Med Surg Social Fam HX - Past Medical History Medical history: arthritis, asthma, atrial fibrillation, cardiomyopathy, CHF, COPD, coronary artery disease, diabetes, GERD, hyperlipidemia, hypertension, osteoporosis, RA, seizures, thyroid disease, syncope, venous stasis, valvular heart disease, other Psychiatric history: other - Past Surgical History Surgical History: angioplasty/stent (Left heart catheterizations with multiple stent placements.), cholecystectomy, hysterectomy (Partial hysterectomy.), orthopedic, other (Back surgery.), other (Hemorrhoid surgery. Ear surgery.), vascular surgery (Varicose vein surgery.) - Social History Smoking Status: Never smoker Smokeless Tobacco Status: No Alcohol use: none Drug use: none - Family History Mother Brother Hx Family Cardiac Disorders: Yes Hx Family Respiratory Disorders: Yes Hx Family Endocrine Disorder: Yes - Gastrointestinal Gastrointestinal: Present: as per HPI - Constitutional Constitutional: as per HPI - EENT Eyes: as per HPI Ears: Present: as per HPI Nose, mouth and throat: Present: as per HPI - Cardiovascular Cardiovascular ROS: Present: as per HPI - Respiratory Respiratory IM: Present: as per HPI - Genitourinary Genitourinary: Absent: change in color, Urinary frequency - Neurological ROS Neurological GI: Present: as per HPI - Hematologic/Lymphatic Hematologic/Lymphatic pediatric: Present: as per HPI - Musculoskeletal Musculoskeletal ROS GI: Present: as per HPI - Integumentary Integumentary GI: Present: as per HPI - Psychiatric ROS Psychiatric GI: Present: as per HPI - Endocrine Endocrine IM: Present: as per HPI - Constitutional Vitals: Temp Pulse Resp BP Pulse Ox 97.4 F L 68 18 101/62 100 08/30/16 11:45 08/30/16 11:45 08/30/16 11:45 08/30/16 11:45 08/30/16 11:45 General appearance: Present: cooperative, A&O X 3, no acute distress, answers questions appropriately - Head Head exam: Present: atraumatic, normocephalic - Eye Eye exam: Present: normal appearance, sclera anicteric - ENT ENT exam: Present: mucous membranes moist - Neck Neck exam general surgery: Present: normal inspection, trachea midline - Respiratory Respiratory exam: Present: decreased breath sounds, CTAB - Cardiovascular Cardiovascular exam: Present: RRR, +S1, +S2 - GI/Abdominal GI/Abdominal exam: Present: soft, no peritoneal signs. Absent: distended, firm , guarding, tenderness - Rectal Rectal exam: Present: deferred - Extremities Exam Extremities exam: Present: warm - Neurological Exam Neurological exam: Present: no focal deficits - Psychiatric Psychiatric exam: Present: normal affect, normal mood - Skin Skin exam: Present: dry, intact, normal color, warm Results - Labs CBC & Chem 7: 08/30/16 03:50 08/30/16 03:50 Labs: Last Result Calcium 7.2 mg/dL (8.6-10.8) L D 08/30/16 03:50 Troponin I 0.01 ng/mL (0-0.03) 08/28/16 21:30 Stool Occult Blood Positive (Negative) A 08/28/16 21:00 Entire Visit Hgb 8.3 g/dL (11.5-15.4) L 08/30/16 03:50 Hct 28.2 % (35.3-44.9) L 08/30/16 03:50 PT 14.3 Seconds (9.4-12.1) H 08/28/16 21:30 Total Bilirubin 0.4 mg/dL (0.2-1.2) 08/28/16 21:30 AST 25 Units/L (5-34) 08/28/16 21:30 ALT 20 Units/L (0-55) 08/28/16 21:30 Lipase 17 Units/L (8-78) 08/28/16 21:30 - ABG ABG results: PT/INR, D-dimer PT 14.3 Seconds (9.4-12.1) H 08/28/16 21:30 Consult Discharge Plan - Plan Referrals: Dee Dee Dudley, COSMETOLOGY PROFESSOR [Primary Care Provider] - <Julito Lopez - Last Filed: 08/30/16 17:51> Date of Encounter: 08/30/16 Time of Encounter: 13:00 - Time Spent With Patient Total time spent is greater than 50% in coordination of care (as documented) at patient's floor/unit and/or counseling patient: GI History of Present Illness - Data of Consult Requesting Physician: Adeola Scanlon - Consult Narrative History of present illness: Ms. Aleman is a 85 year old female - Constitutional Vitals: Temp Pulse Resp BP Pulse Ox 97.0 F L 63 16 136/82 100 08/30/16 15:23 08/30/16 15:23 08/30/16 15:23 08/30/16 15:23 08/30/16 15:23 Results - Labs CBC & Chem 7: 08/30/16 03:50 08/30/16 03:50 Labs: Last Result Calcium 7.2 mg/dL (8.6-10.8) L D 08/30/16 03:50 Troponin I 0.01 ng/mL (0-0.03) 08/28/16 21:30 Stool Occult Blood Positive (Negative) A 08/28/16 21:00 Entire Visit Hgb 8.3 g/dL (11.5-15.4) L 08/30/16 03:50 Hct 28.2 % (35.3-44.9) L 08/30/16 03:50 PT 14.3 Seconds (9.4-12.1) H 08/28/16 21:30 Total Bilirubin 0.4 mg/dL (0.2-1.2) 08/28/16 21:30 AST 25 Units/L (5-34) 08/28/16 21:30 ALT 20 Units/L (0-55) 08/28/16 21:30 Lipase 17 Units/L (8-78) 08/28/16 21:30 - ABG ABG results: PT/INR, D-dimer PT 14.3 Seconds (9.4-12.1) H 08/28/16 21:30 - Attending Attestation I examined this patient and my medical decision-making was reviewed with the REUSE TECHNICIAN/PA/Advanced Practice Nurse/Resident Physician. I agree with the documented findings, disposition and treatment plan as described except to the extent set forth below.
[2016-08-30] MEDS: *HR* Morphine 2 MG/ML SYRINGE IV PRN ×2 (15:34→23:07)
[2016-08-30] MEDS ORDERED: SODIUM CHLORIDE/NAHCO3/KCL/PEG 4,000 ML SOLN.RECON PO ONE (17:00)
[2016-08-30] MEDS ORDERED: Aquaphor/Maalox 50 GM BOTTLE TP PRN (17:30)
--- NOTE | 2016-08-30 17:32 | Internal Med Progress Note ---
Date of Encounter: 08/30/16 Time of Encounter: 16:00 - Assessment and plan (1) Diarrhea Current Visit: Yes Status: Acute Assessment and plan: Unclear causation at this time. We will continue Rocephin and Flagyl. GI is on board, plan is for colonoscopy tomorrow. Patient is upset stating that her "butt is raw." We will remove her attends and place her on checks. Will add Aquaphor/Maalox combo. Perineal care hourly when necessary. If possible, use wet wipes and dab when wiping her. (2) Colitis Current Visit: Yes Status: Acute (3) Hypokalemia Current Visit: Yes Status: Acute Assessment and plan: Repleted, we will recheck in the morning. Likely secondary to diarrhea, we will check magnesium levels as well. (4) Paroxysmal a-fib Current Visit: No Status: Chronic Assessment and plan: Rate controlled. We are holding her Coumadin secondary to new anemia and Hemoccult positive with colitis. (5) Hypothyroidism Current Visit: No Status: Chronic Assessment and plan: TSH on 06/25/16 normal. Follow-up outpatient. Qualifiers: Hypothyroidism type: acquired Qualified Code(s): E03.9 - Hypothyroidism, unspecified (6) CAD (coronary artery disease), [place] coronary artery Current Visit: No Status: Chronic Assessment and plan: Patient denies chest pain or shortness of breath. Qualifiers: [place] vs. transplanted heart: [place] heart Associated angina: without angina Qualified Code(s): I25.10 - Atherosclerotic heart disease of [place] coronary artery without angina pectoris (7) Type 2 diabetes mellitus Current Visit: No Status: Chronic Assessment and plan: Appears moderately controlled however no recent A1c, will check on a.m. labs. Continue sliding scale while admitted. Qualifiers: Diabetes mellitus complication status: with unspecified complications Diabetes mellitus custodial insulin use: unspecified custodial insulin use status Qualified Code(s): E11.8 - Type 2 diabetes mellitus with unspecified complications (8) HTN (hypertension) Current Visit: No Status: Chronic Assessment and plan: Controlled. At home, she is on sotalol 120 mg twice a day, losartan 25 mg daily , furosemide 40 mg daily. Furosemide has been held. We will continue to trend and adjust medications as indicated. Qualifiers: Hypertension type: essential hypertension Qualified Code(s): I10 - Essential (primary) hypertension (9) DVT prophylaxis Current Visit: No Status: Acute Assessment and plan: IPC's. Pharmacologic prophylaxis contraindicated secondary to anemia and Hemoccult positive. Also holding her Coumadin. (10) Anemia Current Visit: Yes Status: Acute Assessment and plan: Anemia and relatively new that started in the middle of June and has progressively trended down. Unclear etiology. Her Hemoccult was positive. She does have colitis and inflammation and irritation in her bowel which likely explains the Hemoccult positive. GI is on board, concern for ischemic colitis and they will be performing a colonoscopy tomorrow. She is hemodynamically stable and has not needed transfusion at this time, we will continue to trend. Qualifiers: Anemia type: unspecified type Qualified Code(s): D64.9 - Anemia, unspecified (11) Dehydration Current Visit: Yes Status: Acute Assessment and plan: Patient continues with diarrhea immediately after by mouth intake of anything liquid or solid. GI is on board, colonoscopy tomorrow. - Subjective Interval history: Patient seen and examined. On examination, patient is alert and oriented 3 and currently complains of itching and burning to her perineal area. She states her "butt is raw." She states she continues to have frequent diarrhea. She denies abdominal pain at this time. - Constitutional Vitals: Temp Pulse Resp BP Pulse Ox 97.0 F L 63 16 136/82 100 08/30/16 15:23 08/30/16 15:23 08/30/16 15:23 08/30/16 15:23 08/30/16 15:23 General appearance: Present: A&O X 3, pleasant, no acute distress, answers questions appropriately - Head Head exam: Present: atraumatic, normocephalic - Eye Eye exam: Present: PERRL, conjuntiva pink, sclera anicteric Pupils: Present: PERRL - Neck Neck exam general surgery: Present: supple, trachea midline. Absent: lymphadenopathy - Respiratory Respiratory exam: Present: CTAB. Absent: accessory muscle use, rales, respiratory distress, rhonchi, wheezes - Cardiovascular Cardiovascular exam: Present: RRR, +S1, +S2. Absent: diastolic murmur, gallop, rubs, systolic murmur - GI/Abdominal GI/Abdominal exam: Present: normal bowel sounds, soft, no peritoneal signs. Absent: distended, tenderness - Extremities Exam Extremities exam: Present: warm, radial pulses palpable and symetrical. Absent : calf tenderness, cyanotic, pedal edema - Neurological Exam Neurological exam: Present: alert, CN II-XII intact, oriented X3, no focal deficits, strengths equal and symetr throughout. Absent: pronater drift, facial droop, speech deficit - Skin Skin exam: Present: dry, intact, pallor, warm Internal Medicine: Result - Labs CBC & Chem 7: 08/30/16 03:50 08/30/16 03:50 Labs: Short CBC 08/30/16 Range/Units 03:50 WBC 6.8 (4.3-11.1) K/mcL Hgb 8.3 L (11.5-15.4) g/dL Hct 28.2 L (35.3-44.9) % Plt Count 203 (140-400) K/mcL Neutrophils # 4.2 (1.6-8.9) K/mcL BMP 08/30/16 03:50 Sodium 142 Potassium 3.1 L Chloride 117 H Carbon Dioxide 19 BUN 12 Creatinine 0.60 Glucose 90 Calcium 7.2 L D - ABG Interpretation ABG results: PT/INR, D-dimer PT 14.3 Seconds (9.4-12.1) H 08/28/16 21:30 Consult Discharge Plan - Plan Referrals: Dee Dee Dudley CNP [Primary Care Provider] -
[2016-08-30] MEDS ORDERED: D5% in Water 1,000 ML IVC PRN (17:37)
[2016-08-30] MEDS ORDERED: *HR* Dextrose 50 % in Water (Syg) 50 ML SYRINGE IVP PRN (17:37)
[2016-08-30] MEDS ORDERED: Dextrose Gel 15 GM PO PRN ×2 (17:37)
[2016-08-30] MEDS: Insulin LISPRO 300 UNITS/3 ML VIAL SQ SCH ×2 (18:22→21:10)
[2016-08-30] MEDS: Mirtazapine 15 MG TABLET PO SCH (21:04)
[2016-08-30] MEDS ORDERED: Ondansetron 4 MG/2 ML VIAL IVP PRN (22:32)
[2016-08-30] MEDS ORDERED: Furosemide 40 MG/4 ML VIAL IVP ONE (22:32)
[2016-08-31 03:48] LABS: Hemoglobin A1C 7.2 %
[2016-08-31 03:49] LABS: Basophils % 0.3 %; Eosinophils # 0.3 K/mcL (0.0-0.6); Eosinophils % 3.7 %; Hematocrit 31.3 % (35.3-44.9); Hemoglobin 9.5 g/dL (11.5-15.4); Immature Granulocytes % 0.3 % (0-4); Lymphocytes # 1.9 K/mcL (0.6-4.6); Lymphocytes % 25.1 %; Mean Corpuscular HGB Conc 30.4 g/dL (31.6-35.5); Mean Corpuscular Hemoglobin 26.2 pg (28.0-33.3); Mean Corpuscular Volume 86.2 fL (83.0-100.0); Mean Platelet Volume 8.9 fL (9.4-12.4); Monocytes # 0.7 K/mcL (0.0-1.3); Monocytes % 9.8 %; Neutrophils # 4.5 K/mcL (1.6-8.9); Platelet Count 226 K/mcL (140-400); Red Blood Count 3.63 M/mcL (3.82-4.97); Red Cell Distribution Width 19.5 % (11.5-14.5); Segmented Neutrophils % 60.8 %
[2016-08-31 03:52] LABS: BUN/Creatinine Ratio 14 (6-26); Blood Urea Nitrogen 9 mg/dL (7-20); Carbon Dioxide 22 mEq/L (19-29); Chloride 108 mEq/L (98-109); Glucose 101 mg/dL (70-99); Magnesium 1.6 mg/dL (1.6-2.6); Osmolality,Calculated 283 (280-300); Potassium 3.8 mEq/L (3.5-4.5); Sodium 137 mEq/L (136-145); eGFR For African Americans > 60 (> 60); eGFR For Non-African Americans > 60 (> 60)
[2016-08-31 03:53] LABS: Calcium 8.3 mg/dL (8.6-10.8)
[2016-08-31] MEDS: MetroNIDAZOLE 500 MG/100 ML 500 MG/100 ML BAG IVPB SCH ×3 (05:07→21:23)
[2016-08-31] MEDS: Pantoprazole 40 MG VIAL IVP SCH (05:08)
[2016-08-31] MEDS ORDERED: *HR* Midazolam HCl 5 MG/5 ML VIAL IVP ONE (07:04)
[2016-08-31] MEDS ORDERED: *HR* FentaNYL (PF) 100 MCG/2 ML VIAL ONE (07:04)
[2016-08-31] MEDS ORDERED: *HR* Midazolam HCl 5 MG/5 ML VIAL IVP PRN (07:22)
[2016-08-31] MEDS ORDERED: Simethicone 40 MG/0.6 ML MLS IR ONE (07:22)
[2016-08-31] MEDS ORDERED: *HR* FentaNYL (PF) 100 MCG/2 ML VIAL IVP PRN (07:22)
--- NOTE | 2016-08-31 07:22 | Pre-Sedation Evaluation ---
Pre-sedation evaluation - Pre-sedation checklist Recent Vitals: Last Vital Signs Temp 97.6 F 08/30/16 23:05 Pulse 57 08/31/16 03:22 Resp 14 08/31/16 03:22 BP 107/71 08/31/16 03:22 Pulse Ox 96 08/31/16 03:22 ASA Classification *see protocol: CLASS III-Severe systemic disease Plan of Care: Pt appropriate candidate for procedure/moderate/conscious sedation , Risks/benefits of procedure/sedation discussed w/ patient/family
[2016-08-31] MEDS ORDERED: 0.9 % Sodium Chloride 1,000 ML IVC SCH (08:00)
[2016-08-31] MEDS: Insulin LISPRO 300 UNITS/3 ML VIAL SQ SCH ×4 (09:09→21:24)
[2016-08-31] MEDS: risperiDONE 0.25 MG TABLET PO SCH ×2 (09:21→21:24)
--- NOTE | 2016-08-31 13:50 | Discharge Summary ---
<Vi Hubbard - Last Filed: 08/31/16 18:18> Date of Encounter: 08/31/16 Time of Encounter: 08:30 - Discharge Diagnosis (1) Diarrhea Status: Acute Comments: Etiologies unclear. She is not had diarrhea since I arrived today. The stool specimen for C. difficile was not collected. GI to colonoscopy this morning. There are multiple small and large mouth diverticula in the sigmoid, scattered mild inflammation characterized by congestion, erythema, and friability was found and sigmoid colon. Biopsies were taken. CT of abdomen and pelvis done on admission shows the findings are suggestive of mild colitis in the mid sigmoid colon. She says that she has never had abdominal pain or cramping, even immediately prior to episodes of diarrhea. Her abdomen is soft and rounded, nontender. Hyperactive bowel sounds are heard. Labs were all within normal limits. After the procedure she was started on clear liquids and advance to full liquids and tolerated well. The patient will be sent home on Flagyl 500 mg by mouth 3 times a day. Follow-up with GI outpatient. Qualifiers: Diarrhea type: unspecified type Qualified Code(s): R19.7 - Diarrhea, unspecified (2) Dehydration Priority: Secondary Status: Acute Comments: Patient is euvolemic. Her mucous membranes are moist, lateral within normal limits. She is voiding. Vitals are within normal limits. (3) Paroxysmal a-fib Status: Chronic Comments: Rate controlled with Sotalol. Coumadin was held due to guaiac positive and colitis. (4) Hypothyroidism Priority: Secondary Status: Chronic Comments: chronic. continue home medications. Qualifiers: Hypothyroidism type: acquired Qualified Code(s): E03.9 - Hypothyroidism, unspecified (5) CAD (coronary artery disease), [place] coronary artery Status: Chronic Comments: Chronic. Continue beta kenia. Coumadin stopped due to anemia and hemocult positive. Continue telemetry Continue sotalol, rate control Will restart coumadin when Hgb stable. Qualifiers: [place] vs. transplanted heart: [place] heart Associated angina: without angina Qualified Code(s): I25.10 - Atherosclerotic heart disease of [place] coronary artery without angina pectoris (6) Type 2 diabetes mellitus Status: Chronic Comments: A1c 7.2. Continue diabetic diet Continue sliding scale insulin Accu-Cheks before meals at bedtime Qualifiers: Diabetes mellitus complication status: with unspecified complications Diabetes mellitus intermediate insulin use: unspecified intermediate insulin use status Qualified Code(s): E11.8 - Type 2 diabetes mellitus with unspecified complications (7) HTN (hypertension) Priority: Secondary Status: Chronic Comments: Chronic. Continue home medications. Qualifiers: Hypertension type: essential hypertension Qualified Code(s): I10 - Essential (primary) hypertension (8) Anemia Status: Acute Comments: Hemoglobin climbing slightly 9.5. We will continue to monitor. Patient is hemodynamically stable. Sigmoid colon was friable during colonoscopy however blood loss was minimal. Labs in the a.m. Continue to monitor patient and vital signs Qualifiers: Anemia type: unspecified type Qualified Code(s): D64.9 - Anemia, unspecified (9) Colitis Priority: Secondary Status: Acute Comments: Colonoscopy done today by Dr. Lopez. Colonoscopy revealed multiple small and large mouth diverticula in the sigmoid colon, and scattered mild inflammation, erythema, and friability in the sigmoid as well. Biopsies were taken. The rest of the colon appeared normal. Patient denies diarrhea this morning and bowel prep. (10) Hypokalemia Priority: Secondary Status: Resolved Comments: Potassium 3.8. Magnesium is 1.6. Recheck labs in the morning. Continue to monitor patient (11) DVT prophylaxis Status: Acute Comments: SCDs - Discharge Medications Prescriptions: Furosemide [Lasix] 20 mg PO DAILY #14 tablet Loperamide [Imodium] 2 mg PO QID PRN #14 capsule PRN Reason: Diarrhea Home Medications: Glimepiride [Amaryl] 2 mg PO DAILY 06/26/16 [History] Levothyroxine Sodium [Levoxyl] 75 mcg PO DAILY 06/26/16 [History] Meclizine HCl [Verticalm] 25 mg PO TID PRN 06/26/16 [History] Montelukast Sodium [Singulair] 10 mg PO DAILY 06/26/16 [History] Diphenoxylate/Atropine [Lomotil 2.5 mg/0.025 mg] 1 tab PO QID PRN 08/29/16 [ History] GuaiFENesin ER [Mucinex] 600 mg PO BID PRN 08/29/16 [History] Mirtazapine [Remeron] 15 mg PO HS 08/29/16 [History] Pantoprazole Sodium [Protonix] 40 mg PO DAILY 08/29/16 [History] Potassium Chloride [K-Tab ER] 20 meq PO DAILY 08/29/16 [History] RisperiDONE [RisperDAL] 0.25 mg PO BID 08/29/16 [History] Sotalol HCl [Betapace] 120 mg PO BID 08/29/16 [History] Furosemide [Lasix] 20 mg PO DAILY #14 tablet 09/01/16 [Rx] Loperamide [Imodium] 2 mg PO QID PRN #14 capsule 09/01/16 [Rx] Allergies/Adverse Reactions: Allergies aspirin Allergy (Unknown, Verified 08/29/16 02:20) See Comments Hives hydroxyzine [From Vistaril] Allergy (Unknown, Verified 08/29/16 02:20) See Comments Hives levofloxacin [From Levaquin] Allergy (Unknown, Verified 08/29/16 02:20) See Comments Hives Penicillins Allergy (Unknown, Verified 08/29/16 02:20) See Comments hives codeine Allergy (Verified 08/29/16 02:21) Hives lisinopril Allergy (Verified 08/29/16 02:22) Swelling of Lip/Tongue/Throat ivp dye Allergy (Unknown, Uncoded 08/29/16 02:21) See Comments Anaphylaxis Procedures/tests Complete & Pending: Procedures Performed prior 72 hours Category Date Time Status ECG 12 lead ECG [ECG] AM 0600 Y 08/31/16 06:00 Completed Date of admission: 08/29/16 00:47 Primary care physician: Dee Dee Dudley Consults: 08/29/16 11:44 Consult to Gastroenterology [CONS] Routine Consulting Provider: [facility] Reason for Consult: severe diarhea x5 days. +hemeoccult. mild colitis. patient/family requesting colonos Call Completed: No Discharging clinician: Vi Hubbard Anticipated date of discharge: 08/31/16 - Patient Status Disposition: Home, Self-Care Condition: Good Functional capacity at discharge: uses cane/walker Overall status at discharge: patient is progressing back to baseline - Discharge Instructions Follow Up With: Dee Dee Dudley CNP [Primary Care Provider] - 09/07/16 10:00 am Julito Lopez MD [Partnered Physician] - Additional Instructions: Please take your medications as written. Take your Flagyl three times daily until it is gone. Return to the ED as needed for any other problems or change in your condition. Follow up with Dr. Lopez as scheduled. Hospital course: Ms. Aleman is a 85 year old female - Time Spent with Patient Total time spent providing and/or coordinating discharge services: - Constitutional Vitals: Temp Pulse Resp BP Pulse Ox 96.7 F L 71 14 78/39 98 08/31/16 11:37 08/31/16 11:37 08/31/16 11:37 08/31/16 11:37 08/31/16 11:37 General appearance: Present: A&O X 3, pleasant, no acute distress, answers questions appropriately - Head Head exam: Present: normal inspection - Eye Eye exam: Present: normal appearance, conjuntiva pink - ENT ENT exam: Present: mucous membranes moist, normal exam, normal external ear exam - Neck Neck exam general surgery: Present: normal inspection. Absent: lymphadenopathy , tenderness - Respiratory Respiratory exam: Present: CTAB. Absent: rales, respiratory distress, rhonchi, stridor, wheezes - Cardiovascular Cardiovascular exam: Present: RRR, +S1, +S2. Absent: distant heart sounds, systolic murmur - GI/Abdominal GI/Abdominal exam: Present: hyperactive bowel sounds, soft. Absent: distended, firm, hepatomegaly, splenomegaly, tenderness - Extremities Exam Extremities exam: Present: normal capillary refill, warm, radial pulses palpable and symetrical. Absent: pedal edema, tenderness - Neurological Exam Neurological exam: Present: alert, oriented X3, no focal deficits, strengths equal and symetr throughout - VTE Documentation of Mechanical Device: Graduated compression elastic hosiery <Ricky Smith - Last Filed: 09/01/16 12:29> Date of Encounter: 09/01/16 - Discharge Diagnosis (1) Colitis Priority: Primary Status: Acute (2) Dehydration Priority: Primary Status: Acute (3) Diarrhea Priority: Primary Status: Acute Qualifiers: Diarrhea type: unspecified type Qualified Code(s): R19.7 - Diarrhea, unspecified (4) Weakness Priority: Secondary Status: Acute (5) Type 2 diabetes mellitus Priority: Secondary Status: Chronic Qualifiers: Diabetes mellitus complication status: with unspecified complications Diabetes mellitus intermediate insulin use: unspecified terminal gauger insulin use status Qualified Code(s): E11.8 - Type 2 diabetes mellitus with unspecified complications (6) Afib Priority: Secondary Status: Acute Qualifiers: Atrial fibrillation type: paroxysmal Qualified Code(s): I48.0 - Paroxysmal atrial fibrillation (7) Anemia Priority: Primary Status: Acute Qualifiers: Anemia type: unspecified type Qualified Code(s): D64.9 - Anemia, unspecified - Notes to Outpatient Provider 1. Coumadin is on hold because: 1. Low hemoglobin, 2. Colitis and a guaiac test positive, 3. Biopsy during colonoscopy. 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 Risk and benefits were discussed with patient and family. 2. Losartan is on hold because BP is relatively low. Lasix has been decreased dose to 20 mg daily. Please follow up blood pressure and volume status. Date of admission: 08/31/16 14:34 Primary care physician: Dee Dee Dudley Discharging clinician: Ricky Smith Anticipated date of discharge: 09/01/16 - Diet and Activity Diet: low salt diet Hospital course: Ms. Aleman is a 85 year old female admitted for diarrhea and dehydration. Patient was on Coumadin for A. fib. She was found the hemoglobin is relatively low. Guaiac test positive in ER. GI consult was called and colonoscopy has been done. Patient's diarrhea has improved. C. difficile test are negative. I saw and examined the patient and today. She is awake alert oriented 3, vitals are stable, BP is at the lower side at 105/70. Will discharge patient home today. We will hold the losartan because BP is at lower side. Will decrease his Lasix dose to 20 mg by mouth daily. Will hold the Coumadin temporarily because of low hemoglobin and positive guaiac test, and biopsy during colonoscopy, may reevaluate and restart by PCP or patient's business reporting developer. - Time Spent with Patient Total time spent providing and/or coordinating discharge services: 40 minutes Greater than 30 minutes - Constitutional Vitals: Temp Pulse Resp BP Pulse Ox 97.3 F L 63 16 105/70 98 09/01/16 11:35 09/01/16 11:35 09/01/16 11:35 09/01/16 11:35 09/01/16 11:35 General appearance: Present: A&O X 3, pleasant, no acute distress, answers questions appropriately - Head Head exam: Present: atraumatic, normocephalic - Eye Eye exam: Present: PERRL, conjuntiva pink, sclera anicteric Pupils: Present: PERRL - Neck Neck exam general surgery: Present: supple, trachea midline. Absent: lymphadenopathy - Respiratory Respiratory exam: Present: CTAB. Absent: accessory muscle use, rales, rhonchi, wheezes - Cardiovascular Cardiovascular exam: Present: RRR, +S1, +S2. Absent: diastolic murmur, gallop, rubs, systolic murmur - GI/Abdominal GI/Abdominal exam: Present: normal bowel sounds, soft, no peritoneal signs. Absent: distended, tenderness - Extremities Exam Extremities exam: Present: pedal edema, warm, radial pulses palpable and symetrical. Absent: calf tenderness, cyanotic - Neurological Exam Neurological exam: Present: CN II-XII intact, oriented X3, no focal deficits. Absent: pronater drift, facial droop, speech deficit - Skin Skin exam: Present: dry, intact
--- NOTE | 2016-08-31 14:29 | Event Note ---
Date of Encounter: 08/31/16 Time of Encounter: 14:15 As I was ready to discharge patient, I noticed that her blood pressure had been charted with a systolic blood pressure of 70s. Had the nurse recheck her blood pressure and it was within normal limits. I went in to assess the patient myself and family states that since she started the full liquid diet she has had diarrhea 3-4 times. They are obviously concerned with sending her home and and patient unable to care for herself from becoming dehydrated again. We will keep her again tonight for continued IV antibiotics, will keep clear liquid diet for now, and will reassess for potential discharge in the morning.
[2016-08-31] MEDS ORDERED: Diphenoxylate/Atropine 1 TAB TABLET PO PRN (14:31)
[2016-08-31] MEDS: 0.9 % Sodium Chloride 1,000 ML IVC SCH ×2 (17:15→17:25)
[2016-08-31] MEDS: Mirtazapine 15 MG TABLET PO SCH (21:24)
[2016-09-01 05:12] LABS: Basophils % 0.3 %; Eosinophils # 0.3 K/mcL (0.0-0.6); Eosinophils % 4.5 %; Hematocrit 28.9 % (35.3-44.9); Hemoglobin 8.7 g/dL (11.5-15.4); Immature Granulocytes % 0.3 % (0-4); Lymphocytes # 1.5 K/mcL (0.6-4.6); Lymphocytes % 22.8 %; Mean Corpuscular HGB Conc 30.1 g/dL (31.6-35.5); Mean Corpuscular Hemoglobin 25.8 pg (28.0-33.3); Mean Corpuscular Volume 85.8 fL (83.0-100.0); Mean Platelet Volume 9.3 fL (9.4-12.4); Monocytes # 0.7 K/mcL (0.0-1.3); Neutrophils # 4.1 K/mcL (1.6-8.9); Platelet Count 210 K/mcL (140-400); Red Blood Count 3.37 M/mcL (3.82-4.97); Red Cell Distribution Width 19.4 % (11.5-14.5); Segmented Neutrophils % 61.1 %
[2016-09-01 05:27] LABS: BUN/Creatinine Ratio 14 (6-26); Blood Urea Nitrogen 9 mg/dL (7-20); Calcium 8.3 mg/dL (8.6-10.8); Carbon Dioxide 22 mEq/L (19-29); Chloride 112 mEq/L (98-109); Glucose 130 mg/dL (70-99); Osmolality,Calculated 288 (280-300); Potassium 3.9 mEq/L (3.5-4.5); Sodium 139 mEq/L (136-145); eGFR For African Americans > 60 (> 60); eGFR For Non-African Americans > 60 (> 60)
[2016-09-01] MEDS: MetroNIDAZOLE 500 MG/100 ML 500 MG/100 ML BAG IVPB SCH (05:39)
[2016-09-01] MEDS: Pantoprazole 40 MG VIAL IVP SCH (05:43)
[2016-09-01] MEDS: Insulin LISPRO 300 UNITS/3 ML VIAL SQ SCH ×2 (09:14→12:15)
[2016-09-01] MEDS: risperiDONE 0.25 MG TABLET PO SCH (09:55)
[2016-09-01 11:37] VITALS: BP 105/70
--- NOTE | 2016-09-01 13:00 | Event Note ---
Date of Encounter: 09/01/16 Time of Encounter: 10:00 Pt was seen and examined, doing well. Will discharge home today. Medication and discharge summary has been updated. Please refer to updated discharge summary for details.
--- NOTE | 2016-09-01 18:06 | Electrocardiograph Report ---
[place] [id number] Test Date: 2016-08-31 Pat Name: Mendy Aleman Department: 113 Room: 3B11 Gender: F [employer] Maker: [facility] : 1930 Requested By: Vicente Shepherd Order Number: [id number] Reading MD: Isauro Solano MD Measurements Intervals [place] Rate: 66 P: 11 RI: 156 QRS: 11 QRSD: 92 T: 43 QT: 435 QTc: 449 Interpretive Statements SINUS RHYTHM Electronically Signed On 09-01-2016 18:05:07 EDT by Isauro Solano MD
--- NOTE | 2016-09-01 18:34 | Electrocardiograph Report ---
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
== END 2016-09-01 13:18 | disposition home or self-care (01) | DRG 392 ==
LOC: EMEROO 19:44 → 3BNU 19:44
PROVIDERS: ADMIT Internal Medicine; ATTEND Registered Nurse
PROC: ENDOCBX (2016-08-31 07:20)

== ENCOUNTER 2017-08-24 23:21 | Inpatient (IN) ==
--- NOTE | 2017-08-25 02:55 | Internal Med History&Physical ---
Date of Encounter: 08/25/17 Time of Encounter: 02:51 Assessment and Plan (1) CHF (congestive heart failure) Current visit: Yes Status: Acute Acute on chronic diastolic heart failure probably due to atrial fibrillation with RVR Qualifiers: Heart failure type: diastolic Heart failure chronicity: acute on chronic Qualified Code(s): I50.33 - Acute on chronic diastolic (congestive) heart failure (2) Atrial fibrillation with RVR Current visit: No Status: Acute Patient has chronic defibrillation now with RVR on Cardizem drip will continue Cardizem drip I will consult cardiology in a.m. (3) CAD (coronary artery disease), [place] coronary artery Current visit: No Status: Chronic Patient has about 5 stents currently no chest pain with trrend troponin Qualifiers: [place] vs. transplanted heart: [place] heart Associated angina: without angina Qualified Code(s): I25.10 - Atherosclerotic heart disease of [place] coronary artery without angina pectoris (4) HLD (hyperlipidemia) Current visit: No Status: Chronic Chronic resume home medication Qualifiers: Hyperlipidemia type: pure hypercholesterolemia Qualified Code(s): E78.00 - Pure hypercholesterolemia, unspecified; E78.0 - Pure hypercholesterolemia (5) HTN (hypertension) Current visit: No Status: Chronic Chronic and well controlled Qualifiers: Hypertension type: essential hypertension Qualified Code(s): I10 - Essential (primary) hypertension (6) Hypothyroidism Current visit: No Status: Chronic Qualifiers: Hypothyroidism type: acquired Qualified Code(s): E03.9 - Hypothyroidism, unspecified (7) Type 2 diabetes mellitus Current visit: No Status: Chronic Chronic resume home medication and place on sliding scale Qualifiers: Diabetes mellitus buttermaker continuous churn insulin use: unspecified assisted insulin use status Diabetes mellitus complication status: with unspecified complications Qualified Code(s): E11.8 - Type 2 diabetes mellitus with unspecified complications Internal Medicine - H&P: HPI Chief complaint: sob and palpitation Admitted From: Intrahospital Transfer Plans for Post Hospital Care: Home History of present illness: Ms. Aleman is a 86 year old female Patient with history of atrial fibrillation, CAD has had 5 stents, hypertension , diabetes, COPD and asthma, GERD, high cholesterol and hypothyroidism. Patient transfer from [facility] due to her shortness of breath and atrial fibrillation patient has had 3 days of increased shortness of breath, leg swelling and palpitation she was sent to the emergency room by the home health Nurse she was evaluated she was in atrial fibrillation with rapid ventricular response. started On Cardizem drip and then transferred here. She denies any chest pain, heart rate is down to 99 bpm on arrival exam has some rales and 2+ pitting edema Past Med Surg Social Fam HX - Past Medical History Medical history: arthritis, asthma, atrial fibrillation, cardiomyopathy, CHF, COPD, coronary artery disease, diabetes, GERD, hyperlipidemia, hypertension, osteoporosis, RA, seizures, thyroid disease, syncope, venous stasis, valvular heart disease, other Psychiatric history: other - Past Surgical History Surgical History: angioplasty/stent, cholecystectomy, hysterectomy, orthopedic, other, other, vascular surgery - Social History Smoking Status: Never smoker Smokeless Tobacco Status: No Alcohol use: none Drug use: none - Family History Mother Brother Hx Family Cardiac Disorders: Yes Hx Family Respiratory Disorders: Yes Hx Family Endocrine Disorder: Yes Internal Medicine - H&P: Meds Levothyroxine Sodium [Levoxyl] 75 mcg PO DAILY 06/26/16 [History] Montelukast Sodium [Singulair] 10 mg PO DAILY 06/26/16 [History] GuaiFENesin ER [Mucinex] 600 mg PO BID 08/29/16 [History] Acetaminophen [Tylenol] 325 mg PO Q6HR PRN 08/25/17 [History] Albuterol Neb [Proventil Neb] 2.5 mg IH Q4HR 08/25/17 [History] Amiodarone [Cordarone] 200 mg PO Q12HR 08/25/17 [History] Apixaban [Eliquis] 5 mg PO Q12HR 08/25/17 [History] Atorvastatin [Lipitor] 80 mg PO HS 08/25/17 [History] Furosemide [Lasix] 40 mg PO DAILY 08/25/17 [History] Nitroglycerin [Nitrostat] 0.4 mg SL PRN 08/25/17 [History] Ondansetron ODT [Zofran ODT] 4 mg PO Q12HR PRN 08/25/17 [History] 3 Allergy/AdvReac Type Severity Reaction Status Date / Time aspirin Allergy Unknown See Verified 08/29/16 02:20 Comments hydroxyzine [From Vistaril] Allergy Unknown See Verified 08/29/16 02:20 Comments levofloxacin [From Levaquin] Allergy Unknown See Verified 08/29/16 02:20 Comments Penicillins Allergy Unknown See Verified 08/29/16 02:20 Comments codeine Allergy Hives Verified 08/29/16 02:21 lisinopril Allergy Swelling Verified 08/29/16 02:22 of Lip/Tongue/Throat ivp dye Allergy Unknown See Uncoded 08/29/16 02:21 Comments All Systems PM: A 10-system review of systems was performed and is negative for pertinent findings except as documented above in the HPI. - Constitutional Constitutional: fatigue, weakness - EENT Eyes: no change in vision, no discharge, no pain, no photophobia Ears: no ear discharge, no ear pain, no tinnitus Nose, mouth and throat: no dysphagia, no nasal discharge, no neck pain, no sore throat - Cardiovascular Cardiovascular ROS IM: dyspnea, dyspnea on exertion, edema - Respiratory Respiratory: dyspnea on exertion - Gastrointestinal Gastrointestinal: no abdominal pain, no diarrhea, no hematemesis, no hematochezia, no melena, no nausea, no vomiting - Genitourinary Genitourinary: no change in urinary stream, no dysuria, no flank pain, no hematuria - Constitutional Vitals: Temp Pulse Resp BP Pulse Ox 98.2 F 96 16 124/59 97 08/25/17 01:19 08/25/17 01:19 08/25/17 01:19 08/25/17 01:19 08/25/17 01:19 General appearance: Present: mild distress - Head Head exam: Present: atraumatic, normocephalic - Eye Eye exam: Present: PERRL, conjuntiva pink, sclera anicteric Pupils: Present: PERRL - Respiratory Respiratory exam: Present: rales - Cardiovascular Cardiovascular exam: Present: irregular rhythm, systolic murmur - GI/Abdominal GI/Abdominal exam: Present: normal bowel sounds, soft, no peritoneal signs. Absent: distended, tenderness
[2017-08-25] MEDS ORDERED: Naloxone 0.4 MG/ML INJ IVP PRN (03:00)
[2017-08-25] MEDS ORDERED: traMADol 50 MG TABLET PO PRN (03:00)
[2017-08-25] MEDS ORDERED: Acetaminophen 325 MG TABLET PO PRN ×2 (03:00→03:03)
[2017-08-25] MEDS ORDERED: D5% in Water 1,000 ML IVC PRN (03:04)
[2017-08-25] MEDS ORDERED: Dextrose Gel 15 GM/37.5 ML TUBE PO PRN ×2 (03:04)
[2017-08-25] MEDS ORDERED: *HR* Dextrose 50 % in Water (Syg) 50 ML SYRINGE IVP PRN (03:04)
[2017-08-25] MEDS: Albuterol 2.5 MG/3 ML NEBULIZER IH SCH ×6 (03:27→23:54)
[2017-08-25] MEDS ORDERED: DiphenhydraMINE CREAM 28.4 GM TUBE TP PRN (03:31)
[2017-08-25 04:05] LABS: Basophils % 0.5 %; Eosinophils # 0.3 K/mcL (0.0-0.6); Eosinophils % 5.1 %; Hematocrit 27.3 % (35.3-44.9); Hemoglobin 8.4 g/dL (11.5-15.4); Immature Granulocytes % 0.2 % (0-4); Lymphocytes # 1.7 K/mcL (0.6-4.6); Lymphocytes % 29.6 %; Mean Corpuscular HGB Conc 30.8 g/dL (31.6-35.5); Mean Corpuscular Volume 81.3 fL (83.0-100.0); Mean Platelet Volume 9.4 fL (9.4-12.4); Monocytes # 0.9 K/mcL (0.0-1.3); Monocytes % 15.8 %; Neutrophils # 2.8 K/mcL (1.6-8.9); Platelet Count 201 K/mcL (140-400); Red Blood Count 3.36 M/mcL (3.82-4.97); Red Cell Distribution Width 17.9 % (11.5-14.5); Segmented Neutrophils % 48.8 %
[2017-08-25 04:41] LABS: Troponin I < 0.03 ng/mL (< 0.04)
[2017-08-25 04:42] LABS: Alanine Aminotransferase 34 Units/L (7-52); Albumin 3.2 g/dL (3.5-5.7); Albumin/Globulin Ratio 1.1 (1.1-2.2); Alkaline Phosphatase 119 Units/L (34-104); Aspartate Amino Transferase 48 Units/L (13-39); BUN/Creatinine Ratio 21 (6-26); Bilirubin,Total 0.7 mg/dL (0.3-1.0); Blood Urea Nitrogen 16 mg/dL (8-23); Calcium 8.7 mg/dL (8.6-10.3); Carbon Dioxide 27 mEq/L (23-29); Chloride 102 mEq/L (98-107); Cholesterol 101 mg/dL (< 200); Globulin 2.9 g/dL (2.4-3.5); Glucose 182 mg/dL (70-105); HDL Cholesterol 34 mg/dL (40-59); LDL Cholesterol,Calculated 48 mg/dL (0-99); Osmolality,Calculated 294 (280-300); Potassium 3.4 mEq/L (3.5-5.1); Sodium 139 mEq/L (136-145); Total Protein 6.1 g/dL (6.4-8.9); Triglycerides 93 mg/dL (< 150); eGFR For African Americans > 60 (> 60); eGFR For Non-African Americans > 60 (> 60)
[2017-08-25] MEDS ORDERED: Nitroglycerin 0.4 MG TAB.SUBL SL PRN (07:30)
[2017-08-25] MEDS: Apixaban 5 MG TABLET PO SCH ×2 (07:51→17:02)
[2017-08-25] MEDS: *HR* Amiodarone 200 MG TABLET PO SCH ×2 (07:51→17:02)
[2017-08-25] MEDS: Furosemide 40 MG/4 ML VIAL IVP SCH ×2 (09:25→17:01)
[2017-08-25] MEDS: Insulin LISPRO 300 UNITS/3 ML VIAL SQ SCH ×4 (09:26→21:58)
--- NOTE | 2017-08-25 12:13 | Cardiology Consult Note ---
Date of Encounter: 08/25/17 Time of Encounter: 12:08 Assessment and Plan (1) Atrial fibrillation with RVR Current Visit: Yes Status: Acute Patient is currently in a. fib with RVR rate in range of 90-120. Blood pressure is stable at this time. No acute distress. Through further discussions with patient appears she has been in and out of [facility] for A. fib and CHF exacerbations. She did mention non- compliance with lasix over the past few days. CHF exacerbation versus fluid overload from medication noncompliance. Given labile blood pressure that is borderline low, will continue amiodarone at this time as prescribed and continue with diuresis. Agree with 40mg Lasix BID at this time. BNP was 275. Plan: - Continue Lasix 40mg BID - Strict I&O's, continue to monitor kidney function - Continue amiodarone at this time - Echo ordered - Consider evaluation/workup for anemia hgb decrease from 11.8 to 8.4 over 1 year. May be contributing to SEBASTIÁN. (2) CHF (congestive heart failure) Current Visit: Yes Status: Acute See note above Qualifiers: Heart failure type: diastolic Heart failure chronicity: acute on chronic Qualified Code(s): I50.33 - Acute on chronic diastolic (congestive) heart failure Discussion w patient/family: The assessment and plan as outlined above was discussed with the patient and/or family members who expressed understanding and agreement. All questions were answered. Thank you for involving us in the care of your patient. Please call with any questions. History of Present Illness Consult date: 08/25/17 Requesting physician: Caro Montalvo Consult reason: A fib, SEBASTI[place]N, LE Edema Chief complaint: Edema History of present illness: Ms. Aleman is a 86 year old female with a past medical history of atrial fibrillation, CAD with 5 stents (7 years ago), HTN, DM, COPD, cholesterol, and hypothyroidism presenting by transferred from [facility] ED for the complaint of difficulty in breathing, atrial fibrillation and lower extremity edema. Patient states that her difficulty breathing began over the past 3 days. She states that she was recently discharged from [facility] which is being treated for atrial fibrillation and CHF. She states that upon discharge she did not have correct prescriptions and she was not taking her Lasix as prescribed. Patient states that she requested to be transferred to ED and a pressure like to continue her care. She is on a Cardizem drip to stop was completed. Patient states that she is compliant with her other medications. She also complains of lower extremity edema bilaterally. She denies any fevers, chills, productive cough, chest pain, arm pain, abdominal pain, nausea or vomiting. She does feel palpitations intermittently over the past few months. States her atrial fibrilliation has never been well controlled. Patient lives at home and has a home health nurse. Past Med Surg Social Fam HX - Past Medical History Medical history: arthritis, asthma, atrial fibrillation, cardiomyopathy, CHF, COPD, coronary artery disease, diabetes, GERD, hyperlipidemia, hypertension, osteoporosis, RA, seizures, thyroid disease, syncope, venous stasis, valvular heart disease, other Psychiatric history: other - Past Surgical History Surgical History: angioplasty/stent, cholecystectomy, hysterectomy, orthopedic, other, other, vascular surgery - Social History Smoking Status: Never smoker Smokeless Tobacco Status: No Alcohol use: none Drug use: none - Family History Mother Brother Hx Family Cardiac Disorders: Yes Hx Family Respiratory Disorders: Yes Hx Family Endocrine Disorder: Yes Medications and Allergies Levothyroxine Sodium [Levoxyl] 75 mcg PO DAILY 06/26/16 [History] Montelukast Sodium [Singulair] 10 mg PO DAILY 06/26/16 [History] GuaiFENesin ER [Mucinex] 600 mg PO BID 08/29/16 [History] Acetaminophen [Tylenol] 325 mg PO Q6HR PRN 08/25/17 [History] Albuterol Neb [Proventil Neb] 2.5 mg IH Q4HR 08/25/17 [History] Amiodarone [Cordarone] 200 mg PO Q12HR 08/25/17 [History] Apixaban [Eliquis] 5 mg PO Q12HR 08/25/17 [History] Atorvastatin [Lipitor] 80 mg PO HS 08/25/17 [History] Furosemide [Lasix] 40 mg PO DAILY 08/25/17 [History] Losartan [Cozaar] 25 mg PO DAILY 08/25/17 [History] Nitroglycerin [Nitrostat] 0.4 mg SL Q5M PRN 08/25/17 [History] Ondansetron ODT [Zofran ODT] 4 mg PO Q12HR PRN 08/25/17 [History] 3 Allergy/AdvReac Type Severity Reaction Status Date / Time aspirin Allergy Unknown See Verified 08/29/16 02:20 Comments hydroxyzine [From Vistaril] Allergy Unknown See Verified 08/29/16 02:20 Comments levofloxacin [From Levaquin] Allergy Unknown See Verified 08/29/16 02:20 Comments Penicillins Allergy Unknown See Verified 08/29/16 02:20 Comments codeine Allergy Hives Verified 08/29/16 02:21 lisinopril Allergy Swelling Verified 08/29/16 02:22 of Lip/Tongue/Throat ivp dye Allergy Unknown See Uncoded 08/29/16 02:21 Comments All Systems Review: The remainder of the systems were reviewed and are negative - Constitutional Constitutional: no fever(s), no weakness - Cardiovascular Cardiovascular: dyspnea at rest, dyspnea on exertion, palpitations, no chest pain at rest, no chest pain with exertion, no diaphoresis, no orthopnea - Respiratory Respiratory: dyspnea, no cough - Gastrointestinal Gastrointestinal: no abdominal pain, no nausea Physical Examination Vital Signs, Last 4 Hours Temp Pulse Resp BP Pulse Ox 08/25/17 11:45 97.9 F 121 17 101/49 97 08/25/17 11:19 16 94 08/25/17 09:40 94 General: Conversant, No Apparent Distress (Patient is sitting up in bed, very active, talkative. Walks around the room when I enter. ) HEENT: Atraumatic, Normocephaly, Mucus Membranes Moist Neck: No JVD, Normal carotid pulses Cardiac: Reg Rate and Rhythm, Normal S1 and S2, No Murmur Lungs: Other (diminished on the right side in the base. Otherwise, unremarkable. ) Neuro: Alert and responsive, No focal deficits noted Abdomen: Soft, Non-Tender Skin: No rashes noted on visualized skin Musculoskeletal: No Chest Wall Tenderness Extremities: No Clubbing, No Cyanosis, Normal Pulses, Other (2+ pitting edema bilaterally) Results 08/25/17 03:40 08/25/17 03:40 Lab Results 08/25/17 08/25/17 08/25/17 03:40 03:40 03:40 WBC 5.7 Hgb 8.4 L Hct 27.3 L Plt Count 201 Sodium 139 Potassium 3.4 L Chloride 102 Carbon Dioxide 27 BUN 16 Creatinine 0.76 Glucose 182 H Calcium 8.7 Magnesium 2.0 Total Bilirubin 0.7 AST 48 H ALT 34 Alkaline Phosphatase 119 H Troponin I < 0.03 B-Natriuretic Peptide 275 H 08/25/17 09:15 WBC Hgb Hct Plt Count Sodium Potassium Chloride Carbon Dioxide BUN Creatinine Glucose Calcium Magnesium Total Bilirubin AST ALT Alkaline Phosphatase Troponin I < 0.03 B-Natriuretic Peptide - EKG Interpretation EKG results cardiology: personally reviewed, no diagnostic ischemia (atrial fibrillation rate in the 90's (EKG from outside facility.)) Consult Discharge Plan - Plan Referrals: Dee Dee Dudley CNP [Primary Care Provider] -
--- NOTE | 2017-08-25 13:15 | Internal Med Progress Note ---
<Jerome Gaytan - Last Filed: 08/25/17 13:10> Date of Encounter: 08/25/17 Time of Encounter: 13:10 - Assessment and plan (1) Atrial fibrillation with RVR Current Visit: Yes Status: Acute Assessment and plan: Patient has known hx of Afib. @home Rx include eliquis w/ no home rate control Rx. Patient was also prescribed lasix, in which she is not fully compliant on. Patient has had multiple [facility]iltalizations at [facility] for Afib and CHF. Suspected that patient goes into afib when she has CHF exacerbation. Patient was started on Cardizem drip on admission with mild control, patient was sswitched to Amiodarone for rhythm control by Cardiology. CXR shows no acute cardiopulmonary findings. BNP is elevated at 275. trop neg x2. Lipid panel WNL - Cardiology on board, appreciate their input. per their recommendations lasix 40 BID, amiodarone, echo ordered - Cardiac diet; 1.5L fluid restricted, and 2g Na restricted - strict I/O and weights - ordered TSH (2) CAD (coronary artery disease), [place] coronary artery Current Visit: Yes Status: Chronic Assessment and plan: previous, not acute. Will continue Qualifiers: [place] vs. transplanted heart: [place] heart Associated angina: without angina Qualified Code(s): I25.10 - Atherosclerotic heart disease of [place] coronary artery without angina pectoris (3) HLD (hyperlipidemia) Current Visit: Yes Status: Chronic Assessment and plan: Lipid panel WNL. Qualifiers: Hyperlipidemia type: pure hypercholesterolemia Qualified Code(s): E78.00 - Pure hypercholesterolemia, unspecified; E78.0 - Pure hypercholesterolemia (4) HTN (hypertension) Current Visit: Yes Status: Chronic Assessment and plan: Currently controlled Qualifiers: Hypertension type: essential hypertension Qualified Code(s): I10 - Essential (primary) hypertension (5) Hypothyroidism Current Visit: Yes Status: Chronic Assessment and plan: unknown status. Qualifiers: Hypothyroidism type: acquired Qualified Code(s): E03.9 - Hypothyroidism, unspecified (6) Type 2 diabetes mellitus Current Visit: Yes Status: Chronic Assessment and plan: Chronic. 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 Qualifiers: Heart failure type: diastolic Heart failure chronicity: acute on chronic Qualified Code(s): I50.33 - Acute on chronic diastolic (congestive) heart failure - Time Spent With Patient Total time spent is greater than 50% in coordination of care (as documented) at patient's floor/unit and/or counseling patient: - Subjective Interval history: Ms Aleman is an 86 yo F w/ pmh of afib, CAD w/ 5 stents, HTN, DM, COPD, GERD, HLD , hypothyroid, nonmed compliant presented with 3 day hx of SOB found to be in afib. She also endorses bilateral leg edema, orthopnea. Patient in ED was started on cardizem drip for rate control, and cardio was consulted. Today patient reports that her SOB has improved. She does admit to feeling palpitations this AM. Patient denies CP, nausea, vomiting, fever, light headedness. - Constitutional Vitals: Temp Pulse Resp BP Pulse Ox 97.9 F 121 17 101/49 97 08/25/17 11:45 08/25/17 11:45 08/25/17 11:45 08/25/17 11:45 08/25/17 11:45 General appearance: Present: mild distress, A&O X 3, morbidly obese - ENT ENT exam: Present: mucous membranes dry - Respiratory Respiratory exam: Present: rhonchi (at base of lungs bilaterally) - Cardiovascular Cardiovascular exam: Present: irregular rhythm, tachycardia - Extremities Exam Extremities exam: Present: pedal edema Additional comments: 2+ BLE Internal Medicine: Result - Labs CBC & Chem 7: 08/25/17 03:40 08/25/17 03:40 Labs: Short CBC 08/25/17 Range/Units 03:40 WBC 5.7 (4.3-11.1) K/mcL Hgb 8.4 L (11.5-15.4) g/dL Hct 27.3 L (35.3-44.9) % Plt Count 201 (140-400) K/mcL Neutrophils # 2.8 (1.6-8.9) K/mcL BMP 08/25/17 03:40 Sodium 139 Potassium 3.4 L Chloride 102 Carbon Dioxide 27 BUN 16 Creatinine 0.76 Glucose 182 H Calcium 8.7 Cardiac Enzymes 08/25/17 08/25/17 Range/Units 03:40 09:15 Troponin I < 0.03 < 0.03 (< 0.04) ng/mL Liver Function 08/25/17 Range/Units 03:40 Total Bilirubin 0.7 (0.3-1.0) mg/dL AST 48 H (13-39) Units/L ALT 34 (7-52) Units/L Alkaline Phosphatase 119 H (34-104) Units/L Albumin 3.2 L (3.5-5.7) g/dL - Impressions Impressions Chest X-Ray 08/25/17 12:13 IMPRESSION: 1. No acute cardiopulmonary process. 2. Pulmonary vascular congestion and mild cardiomegaly. D/ / Kenneth Segundo MD / Kenneth Segundo MD Interpreting Provider: Kenneth Segundo MD Consult Discharge Plan - Plan Referrals: Dee Dee Dudley CNP [Primary Care Provider] - <Kevin Stone - Last Filed: 08/25/17 14:31> Date of Encounter: 08/25/17 - Assessment and plan (1) Atrial fibrillation with RVR Current Visit: Yes Status: Acute (2) Hypothyroidism Current Visit: Yes Status: Chronic Qualifiers: Hypothyroidism type: acquired Qualified Code(s): E03.9 - Hypothyroidism, unspecified (3) CAD (coronary artery disease), [place] coronary artery Current Visit: Yes Status: Chronic Qualifiers: [place] vs. transplanted heart: [place] heart Associated angina: without angina Qualified Code(s): I25.10 - Atherosclerotic heart disease of [place] coronary artery without angina pectoris (4) Type 2 diabetes mellitus Current Visit: Yes Status: Chronic Qualifiers: Diabetes mellitus care home insulin use: unspecified care home insulin use status Diabetes mellitus complication status: with unspecified complications Qualified Code(s): E11.8 - Type 2 diabetes mellitus with unspecified complications (5) HTN (hypertension) Current Visit: Yes Status: Chronic Qualifiers: Hypertension type: essential hypertension Qualified Code(s): I10 - Essential (primary) hypertension (6) HLD (hyperlipidemia) Current Visit: Yes Status: Chronic Qualifiers: Hyperlipidemia type: pure hypercholesterolemia Qualified Code(s): E78.00 - Pure hypercholesterolemia, unspecified; E78.0 - Pure hypercholesterolemia (7) CHF (congestive heart failure) Current Visit: Yes Status: Acute Qualifiers: Heart failure type: diastolic Heart failure chronicity: acute on chronic Qualified Code(s): I50.33 - Acute on chronic diastolic (congestive) heart failure - Time Spent With Patient Total time spent is greater than 50% in coordination of care (as documented) at patient's floor/unit and/or counseling patient: - Constitutional Vitals: Temp Pulse Resp BP Pulse Ox 97.9 F 121 17 101/49 97 08/25/17 11:45 08/25/17 11:45 08/25/17 11:45 08/25/17 11:45 08/25/17 11:45 Internal Medicine: Result - Labs CBC & Chem 7: 08/25/17 03:40 08/25/17 03:40 Labs: Short CBC 08/25/17 Range/Units 03:40 WBC 5.7 (4.3-11.1) K/mcL Hgb 8.4 L (11.5-15.4) g/dL Hct 27.3 L (35.3-44.9) % Plt Count 201 (140-400) K/mcL Neutrophils # 2.8 (1.6-8.9) K/mcL BMP 08/25/17 03:40 Sodium 139 Potassium 3.4 L Chloride 102 Carbon Dioxide 27 BUN 16 Creatinine 0.76 Glucose 182 H Calcium 8.7 Cardiac Enzymes 08/25/17 08/25/17 Range/Units 03:40 09:15 Troponin I < 0.03 < 0.03 (< 0.04) ng/mL Liver Function 08/25/17 Range/Units 03:40 Total Bilirubin 0.7 (0.3-1.0) mg/dL AST 48 H (13-39) Units/L ALT 34 (7-52) Units/L Alkaline Phosphatase 119 H (34-104) Units/L Albumin 3.2 L (3.5-5.7) g/dL - Impressions Impressions Chest X-Ray 08/25/17 12:13 IMPRESSION: 1. No acute cardiopulmonary process. 2. Pulmonary vascular congestion and mild cardiomegaly. D/ / Kenneth Segundo MD / Kenneth Segundo MD Interpreting Provider: Kenneth Segundo MD - Attending Attestation I performed an independent interview and exam of this patient. I agree with the findings, assessment, and plan of Dr. Gaytan, internal medicine corporate development intern. My input is reflected in his note. This is an 86-year-old female with known history of chronic atrial fibrillation on Eliquis, coronary disease status post stenting 7 years ago, hypertension, diabetes, COPD, hyper lipidemia, and hypothyroidism. She was transferred to our facility for acute decompensated congestive heart failure secondary to atrial fibrillation with rapid ventricular response. Patient denies any recent illnesses. States she has been compliant with her medications and never misses a dose (although conflicting notes in other records). Cardiology input noted and appreciated. Patient's heart rate has improved. She continues on amiodarone. Patient is diuresing well with Lasix 40 mg IV twice a day. Her blood pressure has remained stable. She is satting 97% on room air. We will continue diuresis as renal function allows. Await further cardiology input. All else as outlined above.
[2017-08-25] MEDS: Metoprolol XL (24 HR) Succ 25 MG TAB.ER.24H PO SCH (17:06)
[2017-08-26] MEDS: Albuterol 2.5 MG/3 ML NEBULIZER IH SCH ×2 (04:01→07:58)
[2017-08-26] MEDS: Apixaban 5 MG TABLET PO SCH ×2 (06:05→17:21)
[2017-08-26] MEDS: *HR* Amiodarone 200 MG TABLET PO SCH ×2 (06:05→17:23)
[2017-08-26 06:45] LABS: Hematocrit 27.6 % (35.3-44.9); Hemoglobin 8.5 g/dL (11.5-15.4); Mean Corpuscular HGB Conc 30.8 g/dL (31.6-35.5); Mean Corpuscular Hemoglobin 25.4 pg (28.0-33.3); Mean Corpuscular Volume 82.4 fL (83.0-100.0); Mean Platelet Volume 8.9 fL (9.4-12.4); Platelet Count 203 K/mcL (140-400); Red Blood Count 3.35 M/mcL (3.82-4.97); Red Cell Distribution Width 17.9 % (11.5-14.5); Segmented Neutrophils % 54.3 %
[2017-08-26 06:46] LABS: Basophils % 0.3 %; Eosinophils # 0.2 K/mcL (0.0-0.6); Eosinophils % 3.9 %; Immature Granulocytes % 0.3 % (0-4); Lymphocytes # 1.7 K/mcL (0.6-4.6); Lymphocytes % 27.2 %; Monocytes # 0.9 K/mcL (0.0-1.3); Neutrophils # 3.3 K/mcL (1.6-8.9)
[2017-08-26 07:03] LABS: Alanine Aminotransferase 34 Units/L (7-52); Albumin 3.4 g/dL (3.5-5.7); Albumin/Globulin Ratio 1.1 (1.1-2.2); Alkaline Phosphatase 117 Units/L (34-104); Aspartate Amino Transferase 45 Units/L (13-39); BUN/Creatinine Ratio 17 (6-26); Bilirubin,Total 0.8 mg/dL (0.3-1.0); Blood Urea Nitrogen 13 mg/dL (8-23); Calcium 8.9 mg/dL (8.6-10.3); Carbon Dioxide 33 mEq/L (23-29); Chloride 100 mEq/L (98-107); Glucose 193 mg/dL (70-105); Osmolality,Calculated 291 (280-300); Potassium 3.4 mEq/L (3.5-5.1); Sodium 138 mEq/L (136-145); Total Protein 6.4 g/dL (6.4-8.9); eGFR For African Americans > 60 (> 60); eGFR For Non-African Americans > 60 (> 60)
[2017-08-26] MEDS: Metoprolol XL (24 HR) Succ 25 MG TAB.ER.24H PO SCH (08:55)
[2017-08-26] MEDS: Insulin LISPRO 300 UNITS/3 ML VIAL SQ SCH ×4 (08:55→20:46)
[2017-08-26] MEDS: Furosemide 40 MG/4 ML VIAL IVP SCH (08:55)
--- NOTE | 2017-08-26 09:32 | Cardiology Progress Note ---
Date of Encounter: 08/26/17 Time of Encounter: 09:29 Assessment and Plan (1) Atrial fibrillation with RVR Current Visit: Yes Status: Acute Patient with a fib with RVR in range of 90-120. BP borderline hypotensive, but stable. No acute distress Hx of non-compliance with lasix. Recently discharged from [facility] for similar presentation. Echo Report: Atrial fibrillation, HR 100-120's. LVEF 55%. Indeterminate diastolic function. Normal right ventricular structure and function. Mild-moderate mitral regurgitation. Mild-moderate tricuspid regurgitation. Mild pulmonary hypertension by TR gradient, 41 mmHg. IVC is not visualized. Left Ventricular Wall Motion: Rest Echo Findings Plan: - Continue amiodarone 200mg PO and increase metoprolol to 25mg BID PO - Continue Lasix 40mg BID - Strict I&O's, continue to monitor kidney function - Echo shows EF 55%, unchanged echo from one year ago (2) CHF (congestive heart failure) Current Visit: Yes Status: Acute See note above Qualifiers: Heart failure type: diastolic Heart failure chronicity: acute on chronic Qualified Code(s): I50.33 - Acute on chronic diastolic (congestive) heart failure Discussion w patient/family: The assessment and plan as outlined above was discussed with the patient and/or family members who expressed understanding and agreement. All questions were answered. Thank you for involving us in the care of your patient. Please call with any questions. Subjective Principal diagnosis: afib with RVR, lower extremity edema Interval history: Ms. Aleman is a 86 year old female with a past medical history of atrial fibrillation, CAD with 5 stents (7 years ago), HTN, DM, COPD, cholesterol, and hypothyroidism presenting by transferred from [facility] ED for the complaint of difficulty in breathing, atrial fibrillation and lower extremity edema. SEBASTIÁN began over past 3 days. Recently discharged from [facility] after being treated for chornic atrial fibrillation and CHF. Admits to non-compliance with lasix s/p discharge from outside facility. Pt requested [place] because she would like to be under the care of one of our supervisor coffee, currently sees Dr. Carmen at [facility]. Transferred on cardizem drip, stopped, continued on home amiodarone. BB added for rate control. IV Lasix. Patient states she feels her swelling is improved today. Breathing feels easier. States she is getting antsy and asking the nurses to walk her around the unit and to sit in her chair. Objective Vital Signs, Last 4 Hours Temp Pulse Resp BP Pulse Ox 08/26/17 07:58 16 98 08/26/17 07:13 98.6 F 103 16 114/82 08/26/17 05:56 98.2 F 117 18 100/50 93 General: Conversant, No Apparent Distress HEENT: Atraumatic, Normocephaly, Mucus Membranes Moist Neck: No JVD, Normal carotid pulses Cardiac: No Murmur, Other (Irregular, tachycardic from 90-110.) Lungs: Other (right side sound diminished in the base, otherwise CTA. ) Neuro: Alert and responsive, No focal deficits noted Abdomen: Soft, Non-Tender Skin: No rashes noted on visualized skin Musculoskeletal: No Chest Wall Tenderness Extremities: No Clubbing, No Cyanosis, Normal Pulses, Other (1+ pitting edema of bilateral lower extremities) Results 08/26/17 06:30 08/26/17 06:30 Lab Results 08/25/17 08/25/17 08/25/17 09:15 15:35 15:35 WBC Hgb Hct Plt Count Sodium Potassium Chloride Carbon Dioxide BUN Creatinine Glucose Calcium Total Bilirubin AST ALT Alkaline Phosphatase Troponin I < 0.03 < 0.03 TSH 3.206 08/26/17 08/26/17 06:30 06:30 WBC 6.1 Hgb 8.5 L Hct 27.6 L Plt Count 203 Sodium 138 Potassium 3.4 L Chloride 100 Carbon Dioxide 33 H BUN 13 Creatinine 0.78 Glucose 193 H Calcium 8.9 Total Bilirubin 0.8 AST 45 H ALT 34 Alkaline Phosphatase 117 H Troponin I TSH - Imaging and Cardiology Chest Xray: report reviewed Echo: report reviewed Consult Discharge Plan - Plan Referrals: Dee Dee Dudley, BECKY [Primary Care Provider] -
--- NOTE | 2017-08-26 15:11 | Internal Med Progress Note ---
<Jerome Gaytan - Last Filed: 08/26/17 15:06> Date of Encounter: 08/26/17 Time of Encounter: 09:30 - Assessment and plan (1) Atrial fibrillation with RVR Current Visit: Yes Status: Acute Assessment and plan: Patient has known hx of Afib. @home Rx include eliquis w/ no home rate control Rx. Patient was also prescribed lasix, in which she is not fully compliant on. Patient has had multiple hopsiltalizations at [facility] for Afib and CHF. Suspected that patient goes into afib when she has CHF exacerbation. Patient was started on Cardizem drip on admission with mild control, patient was sswitched to Amiodarone for rhythm control by Cardiology. CXR shows no acute cardiopulmonary findings. BNP is elevated at 275. trop neg x2. Lipid panel WNL. TSH within normal limits. Echo shows LVEF of 55%. - Cardiology on board, appreciate their input. per their recommendations lasix 40 BID, amiodarone 200 BID, metoprolol was doubled to 25mg BID. - Cardiac diet; 1.5L fluid restricted, and 2g Na restricted - strict I/O and weights - discussion was had during patient center rounds, and there was concerns on patient's ability to take care of self even with home health. Appreciate station worker's input. (2) CAD (coronary artery disease), [place] coronary artery Current Visit: Yes Status: Chronic Assessment and plan: previous, not acute. Will continue Qualifiers: [place] vs. transplanted heart: [place] heart Associated angina: without angina Qualified Code(s): I25.10 - Atherosclerotic heart disease of [place] coronary artery without angina pectoris (3) HLD (hyperlipidemia) Current Visit: Yes Status: Chronic Assessment and plan: Lipid panel WNL. Qualifiers: Hyperlipidemia type: pure hypercholesterolemia Qualified Code(s): E78.00 - Pure hypercholesterolemia, unspecified; E78.0 - Pure hypercholesterolemia (4) HTN (hypertension) Current Visit: Yes Status: Chronic Assessment and plan: Currently controlled Qualifiers: Hypertension type: essential hypertension Qualified Code(s): I10 - Essential (primary) hypertension (5) Hypothyroidism Current Visit: Yes Status: Chronic Assessment and plan: unknown status. Qualifiers: Hypothyroidism type: acquired Qualified Code(s): E03.9 - Hypothyroidism, unspecified (6) Type 2 diabetes mellitus Current Visit: Yes Status: Chronic Assessment and plan: Chronic. SSI medium Qualifiers: Diabetes mellitus emt intermediate insulin use: unspecified emt intermediate insulin use status Diabetes mellitus complication status: with unspecified complications Qualified Code(s): E11.8 - Type 2 diabetes mellitus with unspecified complications (7) CHF (congestive heart failure) Current Visit: Yes Status: Acute Assessment and plan: see above. Qualifiers: Heart failure type: diastolic Heart failure chronicity: acute on chronic Qualified Code(s): I50.33 - Acute on chronic diastolic (congestive) heart failure - Time Spent With Patient Total time spent is greater than 50% in coordination of care (as documented) at patient's floor/unit and/or counseling patient: - Subjective Interval history: Ms Aleman is an 86 yo F w/ pmh of afib, CAD w/ 5 stents, HTN, DM, COPD, GERD, HLD , hypothyroid, nonmed compliant presented with 3 day hx of SOB found to be in afib. Patient reports an improvement her breathing but continues to support SOB. Patient denies CP, nausea, vomiting, fever, light headedness. - Constitutional Vitals: Temp Pulse Resp BP Pulse Ox 98.4 F 91 17 108/52 96 08/26/17 11:51 08/26/17 11:51 08/26/17 11:51 08/26/17 11:51 08/26/17 11:51 General appearance: Present: mild distress, A&O X 3, morbidly obese - Respiratory Respiratory exam: Present: prolonged expiratory phase, rhonchi (at base of lungs ), wheezes - Cardiovascular Cardiovascular exam: Present: RRR - Extremities Exam Extremities exam: Present: pedal edema (1+ BLE) Internal Medicine: Result - Labs CBC & Chem 7: 08/26/17 06:30 08/26/17 06:30 Labs: Short CBC 08/26/17 Range/Units 06:30 WBC 6.1 (4.3-11.1) K/mcL Hgb 8.5 L (11.5-15.4) g/dL Hct 27.6 L (35.3-44.9) % Plt Count 203 (140-400) K/mcL Neutrophils # 3.3 (1.6-8.9) K/mcL BMP 08/26/17 06:30 Sodium 138 Potassium 3.4 L Chloride 100 Carbon Dioxide 33 H BUN 13 Creatinine 0.78 Glucose 193 H Calcium 8.9 Cardiac Enzymes 08/25/17 Range/Units 15:35 Troponin I < 0.03 (< 0.04) ng/mL Liver Function 08/26/17 Range/Units 06:30 Total Bilirubin 0.8 (0.3-1.0) mg/dL AST 45 H (13-39) Units/L ALT 34 (7-52) Units/L Alkaline Phosphatase 117 H (34-104) Units/L Albumin 3.4 L (3.5-5.7) g/dL - Impressions Impressions Echocardiogram 08/25/17 12:13 Impressions: Atrial fibrillation, HR 100-120's. LVEF 55%. Indeterminate diastolic function. Normal right ventricular structure and function. Mild-moderate mitral regurgitation. Mild-moderate tricuspid regurgitation. Mild pulmonary hypertension by TR gradient, 41 mmHg. IVC is not visualized. Left Ventricular Wall Motion: Rest Echo Findings All wall segments showed normal motion. Findings: Study Quality * Technically challenging exam - not all windows are optimally visualized. ECG Findings * Atrial fibrillation, HR 100-120's. Left Ventricle * LVEF 55%. * Indeterminate diastolic function. * Normal LV chamber size and wall thickness. Right Ventricle * Normal right ventricular structure and function. Left Atrium * Moderate-severely dilated left atrium. Right Atrium * Normal right atrial size. Aortic Valve * No aortic regurgitation. * Aortic valve not well visualized. * Suboptimal Doppler interrogation. Mitral Valve * Normal mitral valve structure. * No mitral stenosis. * Mild-moderate mitral regurgitation. Tricuspid Valve * Tricuspid valve not well visualized. * Mild-moderate tricuspid regurgitation. Pulmonic Valve * Pulmonic valve is not well visualized. * Suboptimal Doppler interrogation. Pulmonary Artery * Pulmonary artery not well visualized. Aorta * Normally sized aortic root. * Ascending aorta not well visualized. Pericardium * There is no pericardial effusion present. Interatrial Septum * Interatrial septum not well evaluated. IVC * The IVC is not well evaluated. Consult Discharge Plan - Plan Referrals: Dee Dee Dudley CNP [Primary Care Provider] - <Kevin Stone - Last Filed: 08/26/17 15:19> Date of Encounter: 08/26/17 - Assessment and plan (1) Atrial fibrillation with RVR Current Visit: Yes Status: Acute (2) Hypothyroidism Current Visit: Yes Status: Chronic Qualifiers: Hypothyroidism type: acquired Qualified Code(s): E03.9 - Hypothyroidism, unspecified (3) CAD (coronary artery disease), [place] coronary artery Current Visit: Yes Status: Chronic Qualifiers: [place] vs. transplanted heart: [place] heart Associated angina: without angina Qualified Code(s): I25.10 - Atherosclerotic heart disease of [place] coronary artery without angina pectoris (4) Type 2 diabetes mellitus Current Visit: Yes Status: Chronic Qualifiers: Diabetes mellitus emt intermediate insulin use: unspecified emt intermediate insulin use status Diabetes mellitus complication status: with unspecified complications Qualified Code(s): E11.8 - Type 2 diabetes mellitus with unspecified complications (5) HTN (hypertension) Current Visit: Yes Status: Chronic Qualifiers: Hypertension type: essential hypertension Qualified Code(s): I10 - Essential (primary) hypertension (6) HLD (hyperlipidemia) Current Visit: Yes Status: Chronic Qualifiers: Hyperlipidemia type: pure hypercholesterolemia Qualified Code(s): E78.00 - Pure hypercholesterolemia, unspecified; E78.0 - Pure hypercholesterolemia (7) CHF (congestive heart failure) Current Visit: Yes Status: Acute Qualifiers: Heart failure type: diastolic Heart failure chronicity: acute on chronic Qualified Code(s): I50.33 - Acute on chronic diastolic (congestive) heart failure - Time Spent With Patient Total time spent is greater than 50% in coordination of care (as documented) at patient's floor/unit and/or counseling patient: - Constitutional Vitals: Temp Pulse Resp BP Pulse Ox 98.4 F 91 17 108/52 96 08/26/17 11:51 08/26/17 11:51 08/26/17 11:51 08/26/17 11:51 08/26/17 11:51 Internal Medicine: Result - Labs CBC & Chem 7: 08/26/17 06:30 08/26/17 06:30 Labs: Short CBC 08/26/17 Range/Units 06:30 WBC 6.1 (4.3-11.1) K/mcL Hgb 8.5 L (11.5-15.4) g/dL Hct 27.6 L (35.3-44.9) % Plt Count 203 (140-400) K/mcL Neutrophils # 3.3 (1.6-8.9) K/mcL BMP 08/26/17 06:30 Sodium 138 Potassium 3.4 L Chloride 100 Carbon Dioxide 33 H BUN 13 Creatinine 0.78 Glucose 193 H Calcium 8.9 Cardiac Enzymes 08/25/17 Range/Units 15:35 Troponin I < 0.03 (< 0.04) ng/mL Liver Function 08/26/17 Range/Units 06:30 Total Bilirubin 0.8 (0.3-1.0) mg/dL AST 45 H (13-39) Units/L ALT 34 (7-52) Units/L Alkaline Phosphatase 117 H (34-104) Units/L Albumin 3.4 L (3.5-5.7) g/dL - Impressions Impressions Echocardiogram 08/25/17 12:13 Impressions: Atrial fibrillation, HR 100-120's. LVEF 55%. Indeterminate diastolic function. Normal right ventricular structure and function. Mild-moderate mitral regurgitation. Mild-moderate tricuspid regurgitation. Mild pulmonary hypertension by TR gradient, 41 mmHg. IVC is not visualized. Left Ventricular Wall Motion: Rest Echo Findings All wall segments showed normal motion. Findings: Study Quality * Technically challenging exam - not all windows are optimally visualized. ECG Findings * Atrial fibrillation, HR 100-120's. Left Ventricle * LVEF 55%. * Indeterminate diastolic function. * Normal LV chamber size and wall thickness. Right Ventricle * Normal right ventricular structure and function. Left Atrium * Moderate-severely dilated left atrium. Right Atrium * Normal right atrial size. Aortic Valve * No aortic regurgitation. * Aortic valve not well visualized. * Suboptimal Doppler interrogation. Mitral Valve * Normal mitral valve structure. * No mitral stenosis. * Mild-moderate mitral regurgitation. Tricuspid Valve * Tricuspid valve not well visualized. * Mild-moderate tricuspid regurgitation. Pulmonic Valve * Pulmonic valve is not well visualized. * Suboptimal Doppler interrogation. Pulmonary Artery * Pulmonary artery not well visualized. Aorta * Normally sized aortic root. * Ascending aorta not well visualized. Pericardium * There is no pericardial effusion present. Interatrial Septum * Interatrial septum not well evaluated. IVC * The IVC is not well evaluated. - Attending Attestation I performed an independent interview and examine this patient. I agree with the findings, assessment, and plan of Dr. Gaytan, internal medicine intern product marketing manager. My input is reflected in his note. Cardiology input noted and appreciated. Patient has improved. She will continue diuresis, amiodarone, and metoprolol. She is on Eliquis for stroke prevention. We will change Lasix to oral. Anticipate discharge later today or tomorrow if she continues to do well. All else as outlined above.
--- NOTE | 2017-08-26 15:13 | Physician Discharge Referral ---
Home Health/Hosp Referral Info Transfer to: Home Health Provider in Charge Post Discharge: PCP - Diagnosis (1) Atrial fibrillation with RVR Priority: Primary Status: Acute (2) CAD (coronary artery disease), [place] coronary artery Priority: Secondary Status: Chronic (3) CHF (congestive heart failure) Priority: Secondary Status: Acute (4) HLD (hyperlipidemia) Priority: Secondary Status: Chronic (5) HTN (hypertension) Priority: Secondary Status: Chronic (6) Hypothyroidism Priority: Secondary Status: Chronic (7) Type 2 diabetes mellitus Priority: Secondary Status: Chronic - Respiratory Orders Smoking Cessation: Smoking cessation has been advised. For more information, call the [place] Tobacco Quit Line at 6-378-OUZE-NOW. - Diet/Nutrition Diet/Nutrition Orders: Cardiac - Services Needed Following services are medically necessary services: Nursing, Physical Therapy, Occupational Therapy, Med Social Work - Transfer Medications Home Medications: Levothyroxine Sodium [Levoxyl] 75 mcg PO DAILY 06/26/16 [History] Montelukast Sodium [Singulair] 10 mg PO DAILY 06/26/16 [History] GuaiFENesin ER [Mucinex] 600 mg PO BID 08/29/16 [History] Acetaminophen [Tylenol] 325 mg PO Q6HR PRN 08/25/17 [History] Albuterol Neb [Proventil Neb] 2.5 mg IH Q4HR 08/25/17 [History] Amiodarone [Cordarone] 200 mg PO Q12HR 08/25/17 [History] Apixaban [Eliquis] 5 mg PO Q12HR 08/25/17 [History] Atorvastatin [Lipitor] 80 mg PO HS 08/25/17 [History] Furosemide [Lasix] 40 mg PO DAILY 08/25/17 [History] Losartan [Cozaar] 25 mg PO DAILY 08/25/17 [History] Nitroglycerin [Nitrostat] 0.4 mg SL Q5M PRN 08/25/17 [History] Ondansetron ODT [Zofran ODT] 4 mg PO Q12HR PRN 08/25/17 [History] Allergies/Adverse Reactions: 3 Allergy/AdvReac Type Severity Reaction Status Date / Time aspirin Allergy Unknown See Verified 08/29/16 02:20 Comments hydroxyzine [From Vistaril] Allergy Unknown See Verified 08/29/16 02:20 Comments levofloxacin [From Levaquin] Allergy Unknown See Verified 08/29/16 02:20 Comments Penicillins Allergy Unknown See Verified 08/29/16 02:20 Comments codeine Allergy Hives Verified 08/29/16 02:21 lisinopril Allergy Swelling Verified 08/29/16 02:22 of Lip/Tongue/Throat ivp dye Allergy Unknown See Uncoded 08/29/16 02:21 Comments Certification: Further, I certify that my clinical findings support that this patient is homebound (i.e. absences from home require considerable and taxing effort and are for medical reasons or [employer] services or infrequently or short duration when for other reasons) because: Attestation: My signature below is to certify that this patient is under my care and that I, or nurse practitioner, or a physician's assistant district attorney working with me, has a face-to -face encounter with this patient.
[2017-08-26] MEDS: Furosemide 40 MG TABLET PO SCH (17:23)
[2017-08-27 04:14] LABS: Basophils # 0.1 K/mcL (0.0-0.2); Basophils % 0.6 %; Eosinophils # 0.4 K/mcL (0.0-0.6); Eosinophils % 4.6 %; Hematocrit 27.6 % (35.3-44.9); Hemoglobin 8.5 g/dL (11.5-15.4); Immature Granulocytes % 0.3 % (0-4); Lymphocytes # 1.8 K/mcL (0.6-4.6); Mean Corpuscular HGB Conc 30.8 g/dL (31.6-35.5); Mean Corpuscular Hemoglobin 25.2 pg (28.0-33.3); Mean Corpuscular Volume 81.9 fL (83.0-100.0); Mean Platelet Volume 9.6 fL (9.4-12.4); Monocytes # 1.2 K/mcL (0.0-1.3); Monocytes % 14.8 %; Neutrophils # 4.4 K/mcL (1.6-8.9); Platelet Count 194 K/mcL (140-400); Red Blood Count 3.37 M/mcL (3.82-4.97); Red Cell Distribution Width 17.9 % (11.5-14.5); Segmented Neutrophils % 56.7 %
[2017-08-27 04:27] LABS: Alanine Aminotransferase 33 Units/L (7-52); Albumin 3.1 g/dL (3.5-5.7); Alkaline Phosphatase 116 Units/L (34-104); Aspartate Amino Transferase 45 Units/L (13-39); BUN/Creatinine Ratio 22 (6-26); Bilirubin,Total 0.9 mg/dL (0.3-1.0); Blood Urea Nitrogen 18 mg/dL (8-23); Calcium 8.7 mg/dL (8.6-10.3); Carbon Dioxide 31 mEq/L (23-29); Chloride 98 mEq/L (98-107); Glucose 177 mg/dL (70-105); Osmolality,Calculated 284 (280-300); Potassium 3.5 mEq/L (3.5-5.1); Sodium 134 mEq/L (136-145); Total Protein 6.1 g/dL (6.4-8.9); eGFR For African Americans > 60 (> 60); eGFR For Non-African Americans > 60 (> 60)
[2017-08-27] MEDS: Apixaban 5 MG TABLET PO SCH ×2 (05:51→17:33)
[2017-08-27] MEDS: *HR* Amiodarone 200 MG TABLET PO SCH ×2 (05:51→17:33)
[2017-08-27 07:38] VITALS: BP 114/62
--- NOTE | 2017-08-27 08:34 | Discharge Summary ---
<Andrea Galarza - Last Filed: 08/27/17 14:15> - NOTES TO OUTPATIENT PROVIDER Notes to Outpatient Provider: Continue 1.5L daily fluid restriction, Lasix 40 BID, Amiodarone 200 BID, Metoprolol 25mg BID, and Eliquis for stroke prevention. Orders not resulted at time of discharge: Pending orders 08/25/17 13:52 Iron Profile Routine 08/28/17 04:00 CBC [Complete Blood Count] [HEME] AM 0400 CMP [Comprehensive Metabolic Panel] AM 0400 08/29/17 04:00 CBC [Complete Blood Count] [HEME] AM 0400 CMP [Comprehensive Metabolic Panel] AM 0400 08/30/17 04:00 CBC [Complete Blood Count] [HEME] AM 0400 CMP [Comprehensive Metabolic Panel] AM 0400 08/31/17 04:00 CBC [Complete Blood Count] [HEME] AM 0400 CMP [Comprehensive Metabolic Panel] AM 0400 Date of Encounter: 08/27/17 Time of Encounter: 08:34 - Discharge Diagnosis (1) Atrial fibrillation with RVR Priority: Primary Status: Acute (2) CAD (coronary artery disease), [place] coronary artery Priority: Secondary Status: Chronic Qualifiers: [place] vs. transplanted heart: [place] heart Associated angina: without angina Qualified Code(s): I25.10 - Atherosclerotic heart disease of [place] coronary artery without angina pectoris (3) HTN (hypertension) Priority: Secondary Status: Chronic Qualifiers: Hypertension type: essential hypertension Qualified Code(s): I10 - Essential (primary) hypertension (4) HLD (hyperlipidemia) Priority: Secondary Status: Chronic Qualifiers: Hyperlipidemia type: pure hypercholesterolemia Qualified Code(s): E78.00 - Pure hypercholesterolemia, unspecified; E78.0 - Pure hypercholesterolemia (5) Type 2 diabetes mellitus Priority: Secondary Status: Chronic Qualifiers: Diabetes mellitus skilled nursing insulin use: unspecified skilled nursing insulin use status Diabetes mellitus complication status: with unspecified complications Qualified Code(s): E11.8 - Type 2 diabetes mellitus with unspecified complications (6) Hypothyroidism Priority: Secondary Status: Chronic Qualifiers: Hypothyroidism type: acquired Qualified Code(s): E03.9 - Hypothyroidism, unspecified (7) CHF (congestive heart failure) Priority: Primary Status: Acute Qualifiers: Heart failure type: diastolic Heart failure chronicity: acute on chronic Qualified Code(s): I50.33 - Acute on chronic diastolic (congestive) heart failure Hospital course: Ms. Aleman is a 86 year old female with a PMH of CHF, Atrial fibrillation on Eliquis, CAD with 5 stents, hypertension, diabetes, COPD, asthma, GERD, high cholesterol and hypothyroidism. Patient transfer from [facility] due to her shortness of breath and atrial fibrillation with rapid ventricular response. Patient resides in an assisted living facility and reported 3 days of increased shortness of breath, leg swelling, and palpitations. She was sent to the emergency room by the home health nurse. She was started On Cardizem drip and then transferred here. Her heart rate was down to 99 bpm on arrival and exam revealed rales and 2+ pitting edema. Echo revealed EF 55% and BNP level was elevated at 275. Patient was weaned off Cardizem and cardiology recommended Lasix 40 BID, Amiodarone 200 BID, and Metoprolol 25mg BID. Patient improved significantly with diuresis and was discharged back to assisted living facility with home health care. Patient was instructed to limit fluid intake to 1.5L daily and elevated legs while at rest. Follow up with PCP in 1-2 weeks. - Time Spent with Patient Total time spent providing and/or coordinating discharge services: - Discharge Medications Prescriptions: Furosemide [Lasix] 40 mg PO BIDDIURETIC #30 tablet Metoprolol [Lopressor] 25 mg PO BID #60 tablet Home Medications: Levothyroxine Sodium [Levoxyl] 75 mcg PO DAILY 06/26/16 [History] Montelukast Sodium [Singulair] 10 mg PO DAILY 06/26/16 [History] GuaiFENesin ER [Mucinex] 600 mg PO BID 08/29/16 [History] Acetaminophen [Tylenol] 325 mg PO Q6HR PRN 08/25/17 [History] Albuterol Neb [Proventil Neb] 2.5 mg IH Q4HR 08/25/17 [History] Amiodarone [Cordarone] 200 mg PO Q12HR 08/25/17 [History] Apixaban [Eliquis] 5 mg PO Q12HR 08/25/17 [History] Atorvastatin [Lipitor] 80 mg PO HS 08/25/17 [History] Nitroglycerin [Nitrostat] 0.4 mg SL Q5M PRN 08/25/17 [History] Ondansetron ODT [Zofran ODT] 4 mg PO Q12HR PRN 08/25/17 [History] Furosemide [Lasix] 40 mg PO BIDDIURETIC #30 tablet 08/27/17 [Rx] Metoprolol [Lopressor] 25 mg PO BID #60 tablet 08/27/17 [Rx] Allergies/Adverse Reactions: 3 Allergy/AdvReac Type Severity Reaction Status Date / Time aspirin Allergy Unknown See Verified 08/29/16 02:20 Comments hydroxyzine [From Vistaril] Allergy Unknown See Verified 08/29/16 02:20 Comments levofloxacin [From Levaquin] Allergy Unknown See Verified 08/29/16 02:20 Comments Penicillins Allergy Unknown See Verified 08/29/16 02:20 Comments codeine Allergy Hives Verified 08/29/16 02:21 lisinopril Allergy Swelling Verified 08/29/16 02:22 of Lip/Tongue/Throat ivp dye Allergy Unknown See Uncoded 08/29/16 02:21 Comments Date of admission: 08/25/17 03:00 Primary care physician: Dee Dee Dudley Consults: 08/25/17 03:07 Consult to Cardiology [CONS] Routine Comment: Consulting Provider: Cardiology Ami Reason for Consult: chf and atrial fib with RVR Call Completed: No 08/25/17 07:48 Consult to Invasive Line Access Team [CONS] Routine Reason for Consult: no current IV access, limited vascular access Line Type: EPIV Time Notified: 07:49 Call Completed: Yes 08/25/17 14:06 Consult to Occupational Therapy [CONS] Routine Comment: Evaluate, develop and implement POC Reason for Consult: evaluation Does patient have active BEDREST order?: No Is patient medically & hemodynamically stable?: Yes Patient assessed for mobility or mobilized this visit?: Yes Consult to Physical Therapy [CONS] Routine Comment: Evaluate, develop and implement POC Reason for Consult: evaluation Does patient have active BEDREST order?: No Is patient medically & hemodynamically stable?: Yes Patient assessed for mobility or mobilized this visit?: Yes 08/25/17 15:17 Consult to Security Operations Analyst [CONS] Routine Reason for SW Consult: Questionable safe retun home/able to appropriately care for self; from apartment alone; next of kin daughter Laina ([phone]) 08/25/17 15:25 Consult to Nurse Navigator [CONS] Routine Comment: Acute diastolic CHF; Afib with RVR Discharging clinician: Andrea Galarza Anticipated date of discharge: 08/27/17 - Constitutional Vitals: Temp Pulse Resp BP Pulse Ox 97.7 F 101 16 114/62 96 08/27/17 07:37 08/27/17 07:37 08/27/17 08:00 08/27/17 07:37 08/27/17 08:00 General appearance: Present: cooperative, mild distress, A&O X 3, pleasant, obese - Head Head exam: Present: atraumatic, normocephalic - Eye Eye exam: Present: PERRL, conjuntiva pink, sclera anicteric Pupils: Present: PERRL - ENT ENT exam: Present: mucous membranes moist, normal oropharynx - Neck Neck exam general surgery: Present: supple, trachea midline. Absent: lymphadenopathy - Respiratory Respiratory exam: Present: CTAB. Absent: accessory muscle use, rales, rhonchi, wheezes - Cardiovascular Cardiovascular exam: Present: RRR, +S1, +S2. Absent: diastolic murmur, gallop, rubs, systolic murmur - GI/Abdominal GI/Abdominal exam: Present: normal bowel sounds, soft, no peritoneal signs. Absent: distended, tenderness - Extremities Exam Extremities exam: Present: pedal edema (2+), warm, radial pulses palpable and symmetrical. Absent: calf tenderness, cyanotic - Back Exam Back exam: Present: normal inspection. Absent: tenderness - Neurological Exam Neurological exam: Present: CN II-XII intact, oriented X3, no focal deficits. Absent: pronater drift, facial droop, speech deficit - Psychiatric Psychiatric exam: Present: normal affect, normal mood - Skin Skin exam: Present: dry, intact, normal color, warm - Patient Status Disposition: Home Health Service Condition: Fair Functional capacity at discharge: uses cane/walker Overall status at discharge: patient is progressing back to baseline - Discharge Instructions Follow Up With: Dee Dee Dudley, CATERING MANAGER [Primary Care Provider] - - Diet and Activity Activity: ambulate only with your walker, increase activity as tolerated, resume usual activities as tolerated Diet: low salt diet (1.5L fluid restrictions daily) <Kevin Stone - Last Filed: 08/27/17 15:12> Orders not resulted at time of discharge: Pending orders 08/28/17 04:00 CBC [Complete Blood Count] [HEME] AM 0400 CMP [Comprehensive Metabolic Panel] AM 0400 08/29/17 04:00 CBC [Complete Blood Count] [HEME] AM 0400 CMP [Comprehensive Metabolic Panel] AM 0400 08/30/17 04:00 CBC [Complete Blood Count] [HEME] AM 0400 CMP [Comprehensive Metabolic Panel] AM 0400 08/31/17 04:00 CBC [Complete Blood Count] [HEME] AM 0400 CMP [Comprehensive Metabolic Panel] AM 0400 Date of Encounter: 08/27/17 - Discharge Diagnosis (1) Atrial fibrillation with RVR Status: Acute (2) Hypothyroidism Status: Chronic Qualifiers: Hypothyroidism type: acquired Qualified Code(s): E03.9 - Hypothyroidism, unspecified (3) CAD (coronary artery disease), [place] coronary artery Status: Chronic Qualifiers: [place] vs. transplanted heart: [place] heart Associated angina: without angina Qualified Code(s): I25.10 - Atherosclerotic heart disease of [place] coronary artery without angina pectoris (4) Type 2 diabetes mellitus Status: Chronic Qualifiers: Diabetes mellitus watermelon inspector insulin use: unspecified watermelon inspector insulin use status Diabetes mellitus complication status: with unspecified complications Qualified Code(s): E11.8 - Type 2 diabetes mellitus with unspecified complications (5) HTN (hypertension) Status: Chronic Qualifiers: Hypertension type: essential hypertension Qualified Code(s): I10 - Essential (primary) hypertension (6) HLD (hyperlipidemia) Status: Chronic Qualifiers: Hyperlipidemia type: pure hypercholesterolemia Qualified Code(s): E78.00 - Pure hypercholesterolemia, unspecified; E78.0 - Pure hypercholesterolemia (7) CHF (congestive heart failure) Status: Acute Qualifiers: Heart failure type: diastolic Heart failure chronicity: acute on chronic Qualified Code(s): I50.33 - Acute on chronic diastolic (congestive) heart failure Hospital course: Ms. Aleman is a 86 year old female - Time Spent with Patient Total time spent providing and/or coordinating discharge services: Date of admission: 08/25/17 03:00 Primary care physician: Dee Dee Dudley Consults: 08/25/17 03:07 Consult to Cardiology [CONS] Routine Comment: Consulting Provider: Cardiology Ami Reason for Consult: chf and atrial fib with RVR Call Completed: No 08/25/17 07:48 Consult to Invasive Line Access Team [CONS] Routine Reason for Consult: no current IV access, limited vascular access Line Type: EPIV Time Notified: 07:49 Call Completed: Yes 08/25/17 14:06 Consult to Occupational Therapy [CONS] Routine Comment: Evaluate, develop and implement POC Reason for Consult: evaluation Does patient have active BEDREST order?: No Is patient medically & hemodynamically stable?: Yes Patient assessed for mobility or mobilized this visit?: Yes Consult to Physical Therapy [CONS] Routine Comment: Evaluate, develop and implement POC Reason for Consult: evaluation Does patient have active BEDREST order?: No Is patient medically & hemodynamically stable?: Yes Patient assessed for mobility or mobilized this visit?: Yes 08/25/17 15:17 Consult to Security Operations Analyst [CONS] Routine Reason for SW Consult: Questionable safe retun home/able to appropriately care for self; from apartment alone; next of kin daughter Laina ([phone]) 08/25/17 15:25 Consult to Nurse Navigator [CONS] Routine Comment: Acute diastolic CHF; Afib with RVR - Constitutional Vitals: Temp Pulse Resp BP Pulse Ox 97.7 F 101 16 114/62 93 08/27/17 07:37 08/27/17 07:37 08/27/17 11:38 08/27/17 07:37 08/27/17 11:38 - Attending Attestation I performed an independent interview and exam of this patient. I agree with the findings, assessment, and plan of Dr. Galarza, internal medicine resident. His discharge summary reflects my input and our discussion. Pt is stable for discharge. She is compensated from a congestive heart failure standpoint. She will continue on Lasix twice daily, as well as beta kenia. She is out of Apixaban and amiodarone for atrial fibrillation. Heart rate remains controlled. She is satting 93% on room air, ambulating without difficulty. Recommend follow-up with primary care provider next week. She was recommended to go to a facility but she refused. We do recommend home health care. 39 minutes spent on discharge and coordination of care. Exam: Gen: NAD, AAOx3 Skin warm and dry Lung -CTAB, dimin bases Ht - Irregular Abd- Soft + BS, NT Ext= trace edema
[2017-08-27] MEDS: Furosemide 40 MG TABLET PO SCH (10:09)
[2017-08-27] MEDS: Insulin LISPRO 300 UNITS/3 ML VIAL SQ SCH ×2 (10:10→12:00)
--- NOTE | 2017-08-27 13:09 | Physician Discharge Referral ---
ExtendedCare Referral Info Transfer To: Rehab Provider in Charge: Kevin Stone Provider in Charge after Transfer: PCP Institutional Level of Care: Intermediate - Diagnosis (1) CHF (congestive heart failure) Priority: Primary Status: Acute (2) Atrial fibrillation with RVR Priority: Primary Status: Acute (3) CAD (coronary artery disease), [place] coronary artery Priority: Secondary Status: Chronic (4) HTN (hypertension) Priority: Secondary Status: Chronic (5) HLD (hyperlipidemia) Priority: Secondary Status: Chronic (6) Type 2 diabetes mellitus Priority: Secondary Status: Chronic (7) Hypothyroidism Priority: Secondary Status: Chronic Prognosis: Good Aware of Diagnosis: Patient Aware of Prognosis: Patient - Transfer Medications Prescriptions: Furosemide [Lasix] 40 mg PO BIDDIURETIC #30 tablet Metoprolol [Lopressor] 25 mg PO BID #60 tablet Home Medications: Levothyroxine Sodium [Levoxyl] 75 mcg PO DAILY 06/26/16 [History] Montelukast Sodium [Singulair] 10 mg PO DAILY 06/26/16 [History] GuaiFENesin ER [Mucinex] 600 mg PO BID 08/29/16 [History] Acetaminophen [Tylenol] 325 mg PO Q6HR PRN 08/25/17 [History] Albuterol Neb [Proventil Neb] 2.5 mg IH Q4HR 08/25/17 [History] Amiodarone [Cordarone] 200 mg PO Q12HR 08/25/17 [History] Apixaban [Eliquis] 5 mg PO Q12HR 08/25/17 [History] Atorvastatin [Lipitor] 80 mg PO HS 08/25/17 [History] Nitroglycerin [Nitrostat] 0.4 mg SL Q5M PRN 08/25/17 [History] Ondansetron ODT [Zofran ODT] 4 mg PO Q12HR PRN 08/25/17 [History] Furosemide [Lasix] 40 mg PO BIDDIURETIC #30 tablet 08/27/17 [Rx] Metoprolol [Lopressor] 25 mg PO BID #60 tablet 08/27/17 [Rx] Allergies/Adverse Reactions: 3 Allergy/AdvReac Type Severity Reaction Status Date / Time aspirin Allergy Unknown See Verified 08/29/16 02:20 Comments hydroxyzine [From Vistaril] Allergy Unknown See Verified 04/23/17 02:20 Comments levofloxacin [From Levaquin] Allergy Unknown See Verified 08/29/16 02:20 Comments Penicillins Allergy Unknown See Verified 08/29/16 02:20 Comments codeine Allergy Hives Verified 08/29/16 02:21 lisinopril Allergy Swelling Verified 08/29/16 02:22 of Lip/Tongue/Throat ivp dye Allergy Unknown See Uncoded 08/29/16 02:21 Comments - Respiratory Orders Smoking Cessation: Smoking cessation has been advised. For more information, call the [place] Tobacco Quit Line at 0-031-EXSE-NOW. - Advance Directives Code Status: Full Code - Mobility Orders Ambulate (with walker) - Rehabiliation Orders Rehab Potential: Good Rehab Orders: ROM Exercises, Evaluation for Physical Therapy, Evaluation for Occupational Therapy - Treatments Skin tear care topically daily PRN per policy, May check for fecal impaction rectally daily PRN, Fleet enema rectally every other day PRN cleansing purposes - Diet Orders Cardiac CERTIFICATION: I certify that the transfer of the above named patient to an Extended Care Facility is necessary for the continuing treatment of the diagnosis listed. The above information is true and accurate reflection of patient's current condition. Confidential - Redisclosure prohibited without a patient's written consent.
[2017-08-27 14:03] LABS: % Iron Saturation 2 % (15-50); Iron 10 mcg/dL (50-170); Transferrin 294 mg/dL (203-362)
== END 2017-08-27 17:34 | disposition home health service (06) | DRG 293 ==
LOC: 2NENU
PROVIDERS: ADMIT Internal Medicine; ATTEND Internal Medicine

== ENCOUNTER 2019-05-03 07:43 | Inpatient (IN) ==
[2019-05-03] MEDS ORDERED: Naloxone 0.4 MG/ML INJ IVP PRN (10:42)
[2019-05-03 11:47] LABS: Basophils % 0.3 %; Eosinophils % 0.3 %; Hematocrit 37.3 % (35.3-44.9); Hemoglobin 12.8 g/dL (11.5-15.4); Immature Granulocytes % 0.6 % (0-4); Lymphocytes # 1.1 K/mcL (0.6-4.6); Lymphocytes % 8.3 %; Mean Corpuscular HGB Conc 34.3 g/dL (31.6-35.5); Mean Corpuscular Hemoglobin 32.6 pg (28.0-33.3); Mean Corpuscular Volume 94.9 fL (83.0-100.0); Mean Platelet Volume 9.8 fL (9.4-12.4); Monocytes # 1.2 K/mcL (0.0-1.3); Monocytes % 9.7 %; Platelet Count 127 K/mcL (140-400); Red Blood Count 3.93 M/mcL (3.82-4.97); Red Cell Distribution Width 13.4 % (11.5-14.5); Segmented Neutrophils % 80.8 %; White Blood Count 12.7 K/mcL (4.3-11.1)
[2019-05-03 11:49] LABS: BUN/Creatinine Ratio 29 (6-26); Blood Urea Nitrogen 26 mg/dL (8-23); Calcium 9.2 mg/dL (8.6-10.3); Carbon Dioxide 25 mEq/L (23-29); Chloride 101 mEq/L (98-107); Glucose 152 mg/dL (70-105); Osmolality,Calculated 288 (280-300); Potassium 5.3 mEq/L (3.5-5.1); Sodium 135 mEq/L (136-145); eGFR For African Americans > 60 (> 60); eGFR For Non-African Americans 58 (> 60)
[2019-05-03 12:07] LABS: Neutrophils # 10.3 K/mcL (1.6-8.9)
[2019-05-03 12:11] LABS: Platelet Estimate Slight Decrease (Normal)
[2019-05-03] MEDS ORDERED: Metoprolol 100 MG TABLET PO SCH (12:45)
[2019-05-03] MEDS ORDERED: *HR* Metoprolol 5 MG/5 ML VIAL IVP ONE ×2 (13:25→15:04)
[2019-05-03 14:10] LABS: Troponin I < 0.03 ng/mL (< 0.04)
[2019-05-03] MEDS ORDERED: Levothyroxine Sodium 100 MCG VIAL IVP ONE (14:23)
[2019-05-03] MEDS ORDERED: *HR* FentaNYL (PF) 100 MCG/2 ML VIAL ONE (15:19)
[2019-05-03] MEDS ORDERED: Ondansetron 4 MG/2 ML VIAL ONE ×2 (15:19→15:57)
[2019-05-03] MEDS ORDERED: *HR* Succinylcholine 200 MG/10 ML VIAL IVP ONE (15:19)
[2019-05-03] MEDS ORDERED: Lidocaine -MPF 2% 2 ML VIAL ONE (15:19)
[2019-05-03] MEDS ORDERED: *HR* Propofol 200 MG/20 ML VIAL IVP ONE (15:19)
[2019-05-03] MEDS ORDERED: Clindamycin 900 MG/50 ML 900 MG/50 ML IV.SOLN IVPB ONE ×2 (15:44→15:49)
[2019-05-03] MEDS ORDERED: Lidocaine HCL 4 ML Topical Solution (Laryng-O-Jet Kit Sterile Pak) TP ONE (15:55)
[2019-05-03] MEDS ORDERED: *HR* Rocuronium Bromide 50 MG/5 ML VIAL ONE (15:57)
[2019-05-03] MEDS ORDERED: *HR* Etomidate 40 MG/20 ML VIAL IVP ONE (15:57)
[2019-05-03] MEDS ORDERED: Dexamethasone 4 MG/ML VIAL ONE (15:57)
[2019-05-03] MEDS ORDERED: EPHEDrine 50 MG/ML VIAL ONE (15:58)
[2019-05-03] MEDS ORDERED: *HR* PHENYLEPHRINE 1,000 MCG/10 ML SYRINGE IVP ONE (15:58)
[2019-05-03] MEDS ORDERED: Morphine Sulfate 2 MG/ML SYRINGE IVP PRN (17:54)
[2019-05-03] MEDS ORDERED: Ondansetron 4 MG/2 ML VIAL IVP ONE (17:54)
[2019-05-03] MEDS ORDERED: Acetaminophen IV 1,000 MG/100 ML INFUS..BTL IVPB ONE (17:55)
[2019-05-03] MEDS ORDERED: Ondansetron ODT 4 MG TAB.RAPDIS SL PRN (18:44)
[2019-05-03] MEDS ORDERED: Sennosides 8.6 MG TABLET PO PRN (18:44)
[2019-05-03] MEDS ORDERED: *HR* OxyCODONE Immed Rel 5 MG TABLET PO PRN (18:44)
[2019-05-03] MEDS ORDERED: *HR* OxyCODONE/APAP 5/325 TABLET PO PRN (18:44)
[2019-05-03] MEDS ORDERED: Ondansetron 4 MG/2 ML VIAL IVP PRN (18:44)
[2019-05-03] MEDS ORDERED: Nitroglycerin 0.4 MG TAB.SUBL SL PRN (18:44)
[2019-05-03] MEDS ORDERED: Albuterol 2.5 MG/3 ML NEBULIZER IH SCH (20:00)
[2019-05-03] MEDS: Metoprolol 100 MG TABLET PO SCH (21:27)
[2019-05-03] MEDS: Ipratropium/Albuterol Neb 3 ML IH SCH (21:45)
[2019-05-03 21:57] LABS: Hematocrit 41.2 % (35.3-44.9); Hemoglobin 13.7 g/dL (11.5-15.4)
[2019-05-03] MEDS: Benzonatate 100 MG CAPSULE PO SCH (22:04)
[2019-05-03] MEDS: Lactobacillus 1 EACH CAP.SPRINK PO SCH (22:04)
[2019-05-04] MEDS: Clindamycin 900 MG/50 ML 900 MG/50 ML IV.SOLN IVPB SCH ×2 (00:04→10:51)
[2019-05-04] MEDS: Ipratropium/Albuterol Neb 3 ML IH SCH ×5 (00:15→11:33)
[2019-05-04 06:24] LABS: Hematocrit 36.6 % (35.3-44.9); Hemoglobin 12.4 g/dL (11.5-15.4); Mean Corpuscular HGB Conc 33.9 g/dL (31.6-35.5); Mean Corpuscular Hemoglobin 33.2 pg (28.0-33.3); Mean Corpuscular Volume 97.9 fL (83.0-100.0); Mean Platelet Volume 10.3 fL (9.4-12.4); Platelet Count 116 K/mcL (140-400); Red Blood Count 3.74 M/mcL (3.82-4.97); Red Cell Distribution Width 13.7 % (11.5-14.5); White Blood Count 10.1 K/mcL (4.3-11.1)
[2019-05-04 06:30] LABS: BUN/Creatinine Ratio 31 (6-26); Blood Urea Nitrogen 29 mg/dL (8-23); Calcium 9.3 mg/dL (8.6-10.3); Carbon Dioxide 22 mEq/L (23-29); Chloride 101 mEq/L (98-107); Glucose 203 mg/dL (70-105); Osmolality,Calculated 296 (280-300); Potassium 4.8 mEq/L (3.5-5.1); Sodium 137 mEq/L (136-145); eGFR For African Americans > 60 (> 60); eGFR For Non-African Americans 57 (> 60)
[2019-05-04] MEDS ORDERED: predniSONE 20 MG TABLET PO ONE (10:00)
[2019-05-04] MEDS: Famotidine 20 MG TABLET PO SCH (10:46)
[2019-05-04] MEDS: Metoprolol 100 MG TABLET PO SCH ×2 (10:49→21:36)
[2019-05-04] MEDS: Bumetanide 1 MG TABLET PO SCH (10:49)
[2019-05-04] MEDS: Benzonatate 100 MG CAPSULE PO SCH ×3 (10:49→21:54)
[2019-05-04] MEDS: Apixaban 5 MG TABLET PO SCH ×2 (10:50→21:54)
[2019-05-04] MEDS: Lactobacillus 1 EACH CAP.SPRINK PO SCH ×2 (10:50→21:54)
[2019-05-04] MEDS ORDERED: Ipratropium/Albuterol Neb 3 ML IH PRN (11:43)
[2019-05-04] MEDS ORDERED: Dextrose Gel 15 GM/37.5 ML TUBE PO PRN ×2 (12:43)
[2019-05-04] MEDS ORDERED: D5% in Water 1,000 ML IVC PRN (12:43)
[2019-05-04] MEDS ORDERED: *HR* Dextrose 50 % in Water (Syg) 50 ML SYRINGE IVP PRN (12:43)
[2019-05-04] MEDS: Cholecalciferol (D-3) 1,000 UNIT (25MCG) TABLET PO SCH (12:56)
[2019-05-04] MEDS: Insulin LISPRO 300 UNITS/3 ML VIAL SQ SCH ×3 (13:29→21:32)
[2019-05-04] MEDS: Acetaminophen IV 1,000 MG/100 ML INFUS..BTL IVPB SCH ×2 (13:31→17:45)
[2019-05-04] MEDS ORDERED: Insulin LISPRO 300 UNITS/3 ML VIAL SQ SCH (16:30)
[2019-05-05] MEDS: Acetaminophen IV 1,000 MG/100 ML INFUS..BTL IVPB SCH ×3 (02:34→11:12)
[2019-05-05] MEDS: Famotidine 20 MG TABLET PO SCH (08:47)
[2019-05-05] MEDS: Bumetanide 1 MG TABLET PO SCH (08:47)
[2019-05-05] MEDS: Benzonatate 100 MG CAPSULE PO SCH ×3 (08:47→21:30)
[2019-05-05] MEDS: Cholecalciferol (D-3) 1,000 UNIT (25MCG) TABLET PO SCH (08:47)
[2019-05-05] MEDS: Lactobacillus 1 EACH CAP.SPRINK PO SCH ×2 (08:47→21:30)
[2019-05-05] MEDS: Metoprolol 100 MG TABLET PO SCH ×2 (08:48→21:30)
[2019-05-05] MEDS: Apixaban 5 MG TABLET PO SCH ×2 (08:48→21:30)
[2019-05-05] MEDS: Insulin LISPRO 300 UNITS/3 ML VIAL SQ SCH ×4 (08:49→22:33)
[2019-05-05] MEDS ORDERED: predniSONE 10 MG TABLET PO ONE (09:00)
[2019-05-05 19:23] LABS: Basophils % 0.2 %; Eosinophils % 0.1 %; Hematocrit 37.8 % (35.3-44.9); Hemoglobin 12.4 g/dL (11.5-15.4); Immature Granulocytes % 0.7 % (0-4); Lymphocytes # 1.6 K/mcL (0.6-4.6); Lymphocytes % 13.4 %; Mean Corpuscular HGB Conc 32.8 g/dL (31.6-35.5); Mean Corpuscular Volume 100.5 fL (83.0-100.0); Mean Platelet Volume 10.2 fL (9.4-12.4); Monocytes # 1.2 K/mcL (0.0-1.3); Monocytes % 10.1 %; Neutrophils # 8.8 K/mcL (1.6-8.9); Platelet Count 139 K/mcL (140-400); Red Blood Count 3.76 M/mcL (3.82-4.97); Segmented Neutrophils % 75.5 %; White Blood Count 11.7 K/mcL (4.3-11.1)
[2019-05-05 19:47] LABS: Calcium 9.2 mg/dL (8.6-10.3); Potassium 4.8 mEq/L (3.5-5.1)
[2019-05-06] MEDS ORDERED: Melatonin 3 MG TABLET PO ONE (00:26)
[2019-05-06 06:56] LABS: BUN/Creatinine Ratio 41 (6-26); Blood Urea Nitrogen 41 mg/dL (8-23); Calcium 9.1 mg/dL (8.6-10.3); Carbon Dioxide 25 mEq/L (23-29); Chloride 97 mEq/L (98-107); Glucose 122 mg/dL (70-105); Osmolality,Calculated 285 (280-300); Potassium 4.4 mEq/L (3.5-5.1); Sodium 132 mEq/L (136-145); eGFR For African Americans > 60 (> 60); eGFR For Non-African Americans 52 (> 60)
[2019-05-06 07:02] LABS: Basophils % 0.3 %; Eosinophils # 0.1 K/mcL (0.0-0.6); Eosinophils % 0.6 %; Hematocrit 32.4 % (35.3-44.9); Immature Platelets 6.5 % (1.1-6.1); Lymphocytes # 2.2 K/mcL (0.6-4.6); Lymphocytes % 19.8 %; Mean Corpuscular Hemoglobin 32.8 pg (28.0-33.3); Mean Corpuscular Volume 96.7 fL (83.0-100.0); Mean Platelet Volume 10.5 fL (9.4-12.4); Monocytes # 1.6 K/mcL (0.0-1.3); Monocytes % 14.6 %; Nucleated Red Blood Cells 0.3 /100 WBC (0); Platelet Count 105 K/mcL (140-400); Red Blood Count 3.35 M/mcL (3.82-4.97); Red Cell Distribution Width 14.3 % (11.5-14.5); Segmented Neutrophils % 63.7 %; White Blood Count 10.9 K/mcL (4.3-11.1)
[2019-05-06 07:03] LABS: Neutrophils # 6.9 K/mcL (1.6-8.9)
[2019-05-06] MEDS: Famotidine 20 MG TABLET PO SCH (08:45)
[2019-05-06] MEDS: Cholecalciferol (D-3) 1,000 UNIT (25MCG) TABLET PO SCH (08:45)
[2019-05-06] MEDS: Apixaban 5 MG TABLET PO SCH (08:46)
[2019-05-06] MEDS: Benzonatate 100 MG CAPSULE PO SCH (08:47)
[2019-05-06] MEDS: Metoprolol 100 MG TABLET PO SCH (08:49)
[2019-05-06] MEDS: Lactobacillus 1 EACH CAP.SPRINK PO SCH (08:52)
[2019-05-06] MEDS: Bumetanide 1 MG TABLET PO SCH (08:53)
[2019-05-06] MEDS: Insulin LISPRO 300 UNITS/3 ML VIAL SQ SCH ×2 (08:56→11:21)
[2019-05-06] MEDS ORDERED: predniSONE 10 MG TABLET PO ONE (09:00)
[2019-05-06 12:02] VITALS: BP 100/68
[2019-05-07] MEDS ORDERED: predniSONE 5 MG TABLET PO ONE (09:00)
== END 2019-05-06 12:47 | DRG 480 ==
LOC: 3NENU → SUATTDRO 10:42
PROVIDERS: ADMIT Internal Medicine; ATTEND Internal Medicine